=== PATIENT | female | born 1965 | race American Indian/Alaskan Native ===

== ENCOUNTER 2018-02-19 17:15 | Inpatient (IN) | payer MEDICARE ==
[2018-02-19] MEDS ORDERED: NACL 0.9% 1000 ML IV ONE (18:22)
--- NOTE | 2018-02-19 18:30 | Emergency Department Report ---
ED General Adult HPI - General Chief complaint: Fever Stated complaint: AMS Time Seen by Provider: 02/19/18 18:17 Source: EMS Mode of arrival: Stretcher Limitations: Physical Limitation, Other - History of Present Illness Initial comments: Patient is a 52-year-old female who is presenting from a shelter with fever. Patient has a history of subdural hematoma that has left her in a shelter. Patient at baseline is aphasic. Patient is noted to have fever and tachycardia today. There is no additional information is being given by the shelter. Unaware if the patient has had nausea vomiting diarrhea, cold or congestion. Patient does have a PICC line in place but is unclear what the patient is receiving through his PICC line. Patient also has a colostomy and a nonfunctioning PEG tube. - Related Data Allergies Allergy/AdvReac Type Severity Reaction Status Date / Time No Known Allergies Allergy Unverified 02/19/18 18:32 ED Review of Systems ROS: Stated complaint: AMS Other details as noted in HPI Comment: Unobtainable due to pts medical conditions ED Past Medical Hx - Past Medical History Previous Medical History?: Yes Hx Hypertension: Yes Hx CVA: Yes (Traumatic subdural hematoma) Additional medical history: A-fib, acute resp failure, - Surgical History Past Surgical History?: Yes Additional Surgical History: G-tube placement, colostomy - Social History Smoking Status: Unknown if ever smoked Substance Use Type: None ED Physical Exam - General Limitations: Physical Limitation, Other General appearance: alert, lethargic, other (patient is diaphoretic) - Head Head exam: Present: atraumatic, normocephalic - Eye Eye exam: Present: normal appearance, PERRL, EOMI - ENT ENT exam: Present: mucous membranes moist - Neck Neck exam: Present: normal inspection - Respiratory Respiratory exam: Present: normal lung sounds bilaterally, rhonchi (scattered). Absent: respiratory distress, wheezes, rales, stridor - Cardiovascular Cardiovascular Exam: Present: normal rhythm, tachycardia. Absent: systolic murmur, diastolic murmur, rubs, gallop - GI/Abdominal GI/Abdominal exam: Present: soft, normal bowel sounds. Absent: distended, tenderness, guarding, rebound, rigid - Extremities Exam Extremities exam: Present: normal inspection - Back Exam Back exam: Present: normal inspection - Neurological Exam Neurological exam: Present: alert, altered - Psychiatric Psychiatric exam: Present: normal affect, normal mood - Skin Skin exam: Present: warm, dry, intact, normal color. Absent: rash ED Course Vital Signs 02/19/18 02/19/18 18:05 18:49 Temperature 100.3 F H Pulse Rate 145 H 144 H Respiratory 17 Rate Blood Pressure 127/95 O2 Sat by Pulse 97 Oximetry ED Medical Decision Making - Lab Data Result diagrams: 02/19/18 18:14 02/19/18 18:14 Lab Results 02/19/18 02/19/18 02/19/18 Range/Units 18:14 18:14 18:14 WBC 15.4 H (4.5-11.0) K/mm3 RBC 5.27 H (3.65-5.03) M/mm3 Hgb 9.7 L (10.1-14.3) gm/dl Hct 31.4 (30.3-42.9) % MCV 60 L (79-97) fl MCH 19 L (28-32) pg MCHC 31 (30-34) % RDW 25.3 H (13.2-15.2) % Plt Count 357 (140-440) K/mm3 Sodium 159 H (137-145) mmol/L Potassium 4.5 (3.6-5.0) mmol/L Chloride 122.7 H (98-107) mmol/L Carbon Dioxide 23 (22-30) mmol/L Anion Gap 18 mmol/L BUN 29 H (7-17) mg/dL Creatinine 0.7 (0.7-1.2) mg/dL Estimated GFR > 60 ml/min BUN/Creatinine Ratio 41 % Glucose 108 H (65-100) mg/dL Lactic Acid 1.60 (0.7-2.0) mmol/L Calcium 9.4 (8.4-10.2) mg/dL Total Bilirubin 0.80 (0.1-1.2) mg/dL AST 46 H (5-40) units/L ALT 108 H (7-56) units/L Alkaline Phosphatase 114 (35-129) units/L Total Protein 7.8 (6.3-8.2) g/dL Albumin 3.5 L (3.9-5) g/dL Albumin/Globulin Ratio 0.8 % - EKG Data -: EKG Interpreted by Me - EKG Data 02/19/18 19:50 EKG shows sinus tachycardia rate of 139 axis is rightward L at intervals are normal patient with poor R-wave progression and Q waves in the lateral leads and no obvious ST elevation or depressions, interpretation his 0 - Radiology Data [facility] [address] [place] [address] XRay Report Signed Patient: DORY MCKNIGHT MR#: [id number] : 1965 Acct:[id number] Age/Sex: 52 / F ADM Date: 02/19/18 Loc: ED Attending Dr: Ordering Physician: JOSÉ MIGUEL JONES MD Date of Service: 02/19/18 Procedure(s): XR chest 1V ap Accession Number(s): [id number] cc: JOSÉ MIGUEL JONES MD Fluoro Time In Minutes: FINAL REPORT EXAM: XR CHEST 1V AP HISTORY: fever COMPARISON: None available. FINDINGS: Frontal view(s) of the chest obtained. Mild cardiac enlargement. Calcified granuloma right lung base. I PICC line is in place with distal tip projecting over the distal SVC. Hazy opacity left lung base which could reflect atelectasis. Small focus of pneumonia not excluded. No pneumothorax. Calcified right hilar and subcarinal lymph nodes. IMPRESSION: Hazy opacity left lung base concerning for atelectasis versus pneumonia. Remote granulomatous disease. Transcribed By: LMA Dictated By: ERICH RAMOS MD Electronically Authenticated By: ERICH RAMOS MD Signed Date/Time: 02/19/18 193 - Medical Decision Making Patient is a 52-year-old Female who is coming from the shelter with pneumonia. Patient was started on cefepime and vancomycin and the patient be admitted to the hospitalist service. Critical Care Time: Yes (30) Critical care attestation.: If time is entered above; I have spent that time in minutes in the direct care of this critically ill patient, excluding procedure time. ED Disposition Clinical Impression: Hypernatremia Pneumonia Qualifiers: Pneumonia type: due to unspecified organism Laterality: left Lung location: low er lobe of lung Qualified Code(s): J18.1 - Lobar pneumonia, unspecified organism Sepsis Qualifiers: Sepsis type: sepsis due to unspecified organism Qualified Code(s): A41.9 - Sepsis, unspecified organism Disposition: OP ADMIT IP TO THIS HOSP Is pt being admited?: Yes Does the pt Need Aspirin: No Condition: Stable Instructions: Bacterial Pneumonia (ED) Referrals: PRIMARY CARE, [Primary Care Provider] - 3-5 Days Time of Disposition: 19:52
[2018-02-19] MEDS: MAXIPIME/NS 2 GM/100 ML 2 GM/100 ML BAG IV SCH (18:48)
[2018-02-19 18:49] LABS: Hematocrit 31.4 % (30.3-42.9); Hemoglobin 9.7 gm/dl (10.1-14.3); Mean Corpuscular HGB Conc 31 % (30-34); Platelet Count 357 K/mm3 (140-440); Red Blood Count 5.27 M/mm3 (3.65-5.03)
[2018-02-19 19:06] LABS: Mean Corpuscular Volume 60 fl (79-97); Red Cell Distribution Width 25.3 % (13.2-15.2)
[2018-02-19 19:16] LABS: Alanine Aminotransferase 108 units/L (7-56); Albumin 3.5 g/dL (3.9-5); BUN/Creatinine Ratio 41; Blood Urea Nitrogen 29 mg/dL (7-17); Calcium 9.4 mg/dL (8.4-10.2); Hemolysis Index 6
--- NOTE | 2018-02-19 19:35 | XRay Report ---
FINAL REPORT EXAM: XR CHEST 1V AP HISTORY: fever COMPARISON: None available. FINDINGS: Frontal view(s) of the chest obtained. Mild cardiac enlargement. Calcified granuloma right lung base. I PICC line is in place with distal tip projecting over the distal SVC. Hazy opacity left lung base which could reflect atelectasis. Small focus of pneumonia not excluded. No pneumothorax. Calcified ri ght hilar and subcarinal lymph nodes. IMPRESSION: Hazy opacity left lung base concerning for atelectasis versus pneumonia. Remote granulomatous disease .
[2018-02-19 21:16] LABS: Band Neutrophils # (Manual) 0.3 K/mm3; Basophils % (Manual) 0 % (0.0-1.8); Total Cells Counted 100
[2018-02-19 21:17] LABS: Anisocytosis 2+; Hypersegmented Neutrophils Few; Hypochromasia 2+; Large Platelets Few; Platelet Estimate Consistent w Auto
[2018-02-19] MEDS ORDERED: ZOFRAN IV PRN (21:47)
[2018-02-19] MEDS ORDERED: CARDIZEM IV ONE (21:48)
[2018-02-19] MEDS ORDERED: HEPARIN ONE (22:51)
[2018-02-19] MEDS ORDERED: CARDIZEM ONE (22:51)
[2018-02-19 22:54] LABS: Bacteria,Urine 3+ /HPF (Negative); Bilirubin,Urine NEG (Negative); Blood,Urine LG (Negative); Color,Urine Red (Yellow)
[2018-02-19] MEDS ORDERED: D5W 1,000 ML IV SCH (23:00)
[2018-02-19 23:13] LABS: RBC,Urine > 182.0 /HPF (0.0-6.0); WBC,Urine > 182.0 /HPF (0.0-6.0)
[2018-02-19] MEDS: ZITHROMAX 500 MG in NACL 0.9% 250ML 250 ML IV SCH (23:15)
[2018-02-19] MEDS: HEPARIN SUB-Q SCH (23:15)
[2018-02-19 23:43] LABS: BUN/Creatinine Ratio 43; Blood Urea Nitrogen 26 mg/dL (7-17); Calcium 7.9 mg/dL (8.4-10.2); Hemolysis Index 2
[2018-02-20] MEDS: MAXIPIME/NS 2 GM/100 ML 2 GM/100 ML BAG IV SCH ×3 (05:04→22:55)
--- NOTE | 2018-02-20 07:39 | History and Physical Report ---
CHIEF COMPLAINT: Change in mental status. Other complaint includes fever. HISTORY OF PRESENT ILLNESS: The patient is a 52-year-old female brought from long term because of fever and change in mental status. The patient has history of subdural hematoma that left her in the long term and has a baseline aphasic status. The patient was noted by the long term to have fever with tachycardia and there was no history of nausea or vomiting, no history of cough, chest pain, or shortness of breath. The patient was brought to the Emergency Room for evaluation. PAST MEDICAL HISTORY: Pertinent for hypertension, cerebrovascular accident, which is due to traumatic subdural hematoma. Also, the patient has past history of atrial fibrillation and respiratory failure. PAST SURGICAL HISTORY: Pertinent for G-tube placement and colostomy. FAMILY HISTORY: Noncontributory. SOCIAL HISTORY: The patient stays at the long term, does not smoke, does not drink alcohol and does not use illicit drugs. MEDICATIONS: The patient's home medications are not known. ALLERGIES: There are no known drug allergies. REVIEW OF SYSTEMS: CONSTITUTIONAL: There is fever, but no chills, no diaphoresis. HEENT: There is no headache or sore throat. CARDIOVASCULAR SYSTEM: There is no chest pain or orthopnea, but there is a rapid heartbeat. RESPIRATORY SYSTEM: There is no shortness of breath or cough. GASTROINTESTINAL SYSTEM: There is no nausea, no vomiting, no abdominal pain, diarrhea or constipation. NEUROLOGICAL SYSTEM: There is no numbness, no dizziness,. Altered mental status present. MUSCULOSKELETAL SYSTEM: There is no joint pain or swelling. DERMATOLOGICAL SYSTEM: There is no skin rash or itching. GENITOURINARY SYSTEM: There is no dysuria, hematuria, or flank pain. Rest of system review is normal. PHYSICAL EXAMINATION: GENERAL: At the time of exam, the patient was found to be alert, disoriented x 3 and noncommunicative due to chronic aphasia and not in acute distress. VITAL SIGNS: Shows temperature of 100.3 degrees Fahrenheit, pulse of 145, respirations 17, blood pressure 127/95, and O2 sat of 97% on room air. HEENT: Shows pupils to be equal, round, reactive to light and accommodating. Oral mucosa looks dry. NECK: Supple with no JVD or carotid bruit. CARDIOVASCULAR SYSTEM: Show first and second heart sounds, which were heard with irregularly irregular rhythm. RESPIRATORY SYSTEM: Show good air entry on both sides of the lungs with no abnormal breath sounds. GASTROINTESTINAL SYSTEM: Show abdomen to be full, soft, nontender with no organomegaly or rigidity. NEUROLOGICAL: Shows no new focal deficits. The patient has altered mental status. MUSCULOSKELETAL SYSTEM: Show no joint swelling or tenderness. DERMATOLOGICAL SYSTEM: Show no skin rash. GENITOURINARY SYSTEM: Showing no costovertebral angle tenderness. PERTINENT LABORATORY DATA AND IMAGING STUDIES: The patient had a chest x-ray done and the chest x-ray shows hazy opacity in the left lung base concerning for atelectasis versus pneumonia. There is also finding of remote granulomatous disease. Lab tests: The patient has CBC done with elevated white count of 15,400, low hemoglobin of 9.7, low hematocrit of 31.4, and low MCV of 60. The patient has CBC differential shows slightly elevated, segmented neutrophil of 75%. The patient's chemistry show a high sodium level of 159 with a normal potassium level, high chloride level of 122.7 and normal CO2 with elevated BUN of 29, normal creatinine level with AST of 46 and ALT of 108. The patient's urinalysis show high pH of 8.0 with normal specific gravity and negative urine nitrite with large urine leukocyte esterase and high urine WBC of greater than 182 and 3 plus bacteria. DIAGNOSES: 1. Altered mental status. 2. Left lung pneumonia. 3. Chronic atrial fibrillation with rapid ventricular rate. 4. Urinary tract infection. PLAN: 1. The patient will be admitted to telemetry. 2. The patient will continue IV cefepime 2 grams q. 8 hours that was started in the Emergency Room. 3. The patient will be on IV Zithromax 500 mg daily. 4. The patient will be on IV Zofran 4 mg every 8 hours for nausea and vomiting. 5. The patient will be on IV D5W running at 100 mL an hour. 5. The patient will have basic metabolic panel checked after admission to monitor the sodium level. 6. The patient will be on Tylenol 650 mg by mouth every 4 hours for fever and headache. 7. The patient will be on home medication when they are known and reconciled. JOB# [id number] OCN/NTS
[2018-02-20] MEDS: HEPARIN SUB-Q SCH ×2 (12:05→22:55)
--- NOTE | 2018-02-20 15:30 | Progress Note ---
Assessment and Plan - Patient Problems (1) Acute encephalopathy Current Visit: Yes Status: Acute Plan to address problem: Secondary to sepsis and UTI (2) Sepsis Current Visit: Yes Status: Acute Qualifiers: Sepsis type: sepsis due to unspecified organism Qualified Code(s): A41.9 - Sepsis, unspecified organism Plan to address problem: Sepsis secondary to urinary tract infection and possible pneumonia Continue IV antibiotics in the form of cefepime (3) UTI (urinary tract infection) Current Visit: Yes Status: Acute Qualifiers: Urinary tract infection type: acute cystitis Plan to address problem: Await cultures (4) Pneumonia Current Visit: Yes Status: Acute Qualifiers: Pneumonia type: aspiration pneumonia Laterality: left Lung location: lower lobe of lung Qualified Code(s): J18.1 - Lobar pneumonia, unspecified organism Plan to address problem: Possible aspiration Left lower lobe haziness Continue antibiotics (5) Hypernatremia Current Visit: Yes Status: Acute Plan to address problem: IV D5W for now (6) Cerebrovascular accident Current Visit: Yes Status: Chronic Qualifiers: CVA mechanism: unspecified Qualified Code(s): I63.9 - Cerebral infarction, unspecified Plan to address problem: Supportive care (7) PEG tube malfunction Current Visit: Yes Status: Chronic Plan to address problem: PEG tube site healing Will get GI consult regarding different options available (8) Atrial fibrillation with RVR Current Visit: Yes Status: Acute Plan to address problem: Cardizem 5 mg IV every 6 Will get cardiology consult (9) DVT prophylaxis Current Visit: Yes Status: Acute Plan to address problem: Lovenox 40 mg subcutaneous daily and GI prophylaxis (10) Full code status Current Visit: Yes Status: Acute Plan to address problem: Discussed DO NOT RESUSCITATE but patient's wants everything to be done (11) Discharge planning issues Current Visit: Yes Status: Acute Plan to address problem: Patient is from [facility] , once stable patient never discharged back to residential Subjective Date of service: 02/20/18 Principal diagnosis: Sepsis/UTI/encephalopathy Interval history: 52-year-old -[place] female with history of subdural hematoma and cerebrovascular accident was baseline is aphasic and dysphagia admitted for sepsis and UTI. Patient has a PEG tube which was malfunctioning and was removed. The PEG tube hole is healing and still draining some gastric fluid. Patient is apparently on TPN as per the . CODE STATUS was discussed. wants her to be full code. Patient is being treated for sepsis urinary tract infection and hypernatremia Objective - Exam Narrative Exam: Patient is aphasic and decreased responsive - Constitutional Vitals: Vital Signs - 12hr 02/20/18 02/20/18 02/20/18 03:30 04:42 09:02 Temperature 98.2 F 98.3 F Pulse Rate 103 H 112 H 110 H Respiratory 18 18 Rate Blood Pressure 149/91 132/109 110/73 O2 Sat by Pulse 100 100 Oximetry General appearance: Present: no acute distress, well-nourished - EENT Eyes: PERRL, EOM intact ENT: hearing intact, clear oral mucosa Ears: bilateral: normal - Neck Neck: supple, normal ROM - Respiratory Respiratory effort: normal Respiratory: bilateral: CTA - Breasts Breasts: normal - Cardiovascular Heart rate: 110 Rhythm: irregularly irregular Heart Sounds: Present: S1 & S2. Absent: gallop, rub Extremities: no ischemia, pulses intact, No edema, normal color, Full ROM - Gastrointestinal General gastrointestinal: Present: soft, non-tender, non-distended, normal bowel sounds, other (PEG site healing and a drain bag is present with gastric fluid) - Genitourinary Female genitourinary: normal - Integumentary Integumentary: clear, warm, dry, normal turgor (no decubitus ulcers) - Musculoskeletal Musculoskeletal: generalized weakness - Neurologic Neurologic: moves all extremities, other (patient is aphasic and dysphagic.) - Psychiatric Psychiatric: memory intact, appropriate mood/affect, intact judgment & insight - Labs CBC & Chem 7: 02/19/18 18:14 02/19/18 23:08 Labs: Abnormal lab results 02/19/18 02/19/18 02/19/18 Range/Units 18:14 18:14 23:08 WBC 15.4 H (4.5-11.0) K/mm3 RBC 5.27 H (3.65-5.03) M/mm3 Hgb 9.7 L (10.1-14.3) gm/dl MCV 60 L (79-97) fl MCH 19 L (28-32) pg RDW 25.3 H (13.2-15.2) % Seg Neuts % (Manual) 75.0 H (40.0-70.0) % Lymphocytes % (Manual) 11.0 L (13.4-35.0) % Monocytes % (Manual) 8.0 H (0.0-7.3) % Nucleated RBC % 6.0 H (0.0-0.9) % Seg Neutrophils # Man 11.6 H (1.8-7.7) K/mm3 Monocytes # (Manual) 1.2 H (0.0-0.8) K/mm3 Sodium 159 H 159 H (137-145) mmol/L Chloride 122.7 H 129.2 H (98-107) mmol/L Carbon Dioxide 19 L (22-30) mmol/L BUN 29 H 26 H (7-17) mg/dL Creatinine 0.6 L (0.7-1.2) mg/dL Glucose 108 H 119 H (65-100) mg/dL Calcium 7.9 L D (8.4-10.2) mg/dL AST 46 H (5-40) units/L ALT 108 H (7-56) units/L Albumin 3.5 L (3.9-5) g/dL Urine pH (5.0-7.0) Urine WBC (Auto) (0.0-6.0) /HPF 02/19/18 Range/Units Unknown WBC (4.5-11.0) K/mm3 RBC (3.65-5.03) M/mm3 Hgb (10.1-14.3) gm/dl MCV (79-97) fl MCH (28-32) pg RDW (13.2-15.2) % Seg Neuts % (Manual) (40.0-70.0) % Lymphocytes % (Manual) (13.4-35.0) % Monocytes % (Manual) (0.0-7.3) % Nucleated RBC % (0.0-0.9) % Seg Neutrophils # Man (1.8-7.7) K/mm3 Monocytes # (Manual) (0.0-0.8) K/mm3 Sodium (137-145) mmol/L Chloride (98-107) mmol/L Carbon Dioxide (22-30) mmol/L BUN (7-17) mg/dL Creatinine (0.7-1.2) mg/dL Glucose (65-100) mg/dL Calcium (8.4-10.2) mg/dL AST (5-40) units/L ALT (7-56) units/L Albumin (3.9-5) g/dL Urine pH 8.0 H (5.0-7.0) Urine WBC (Auto) > 182.0 H (0.0-6.0) /HPF Chest x-ray IMPRESSION: Hazy opacity left lung base concerning for atelectasis versus pneumonia. Remote granulomatous disease.
[2018-02-20] MEDS: D5W 1,000 ML IV SCH (17:48)
[2018-02-20] MEDS: CARDIZEM IV SCH ×2 (17:49→22:55)
[2018-02-20] MEDS: ZITHROMAX 500 MG in NACL 0.9% 250ML 250 ML IV SCH (17:50)
[2018-02-20] MEDS: LOVENOX SUB-Q SCH (22:55)
[2018-02-21] MEDS: CARDIZEM IV SCH (04:50)
[2018-02-21] MEDS: MAXIPIME/NS 2 GM/100 ML 2 GM/100 ML BAG IV SCH ×3 (04:58→22:48)
[2018-02-21] MEDS: D5W 1,000 ML IV SCH (06:03)
[2018-02-21 09:00] LABS: Hematocrit 27.1 % (30.3-42.9); Hemoglobin 8.1 gm/dl (10.1-14.3); Mean Corpuscular HGB Conc 30 % (30-34); Platelet Count 270 K/mm3 (140-440); Red Blood Count 4.45 M/mm3 (3.65-5.03)
[2018-02-21 09:05] LABS: Alanine Aminotransferase 83 units/L (7-56); BUN/Creatinine Ratio 40; Blood Urea Nitrogen 24 mg/dL (7-17); Calcium 8.5 mg/dL (8.4-10.2); Hemolysis Index 1
[2018-02-21 09:14] LABS: Mean Corpuscular Volume 61 fl (79-97); Red Cell Distribution Width 25.4 % (13.2-15.2)
[2018-02-21] MEDS: ZITHROMAX 500 MG in NACL 0.9% 250ML 250 ML IV SCH (10:00)
[2018-02-21 10:06] LABS: Anisocytosis 2+; Basophils % (Manual) 0 % (0.0-1.8); Total Cells Counted 100
[2018-02-21 10:07] LABS: Hypochromasia 2+; Platelet Estimate Consistent w Auto; Poikilocytosis 1+; Target Cells 1+
--- NOTE | 2018-02-21 11:17 | Gastroenterology Consultation ---
History of Present Illness - Reason for Consult Consult date: 02/21/18 PEG tube malfunctioning Requesting physician: TOMEKA BAH - History of Present Illness This is a 52 yo female from custodial, chronic vegetative state, h/o CVA, subdural hematoma and baseline aphasia admitted for sepsis with fever and tachycardia. GI consulted for evaluation of PEG tube. Per family, patient had old PEG tube, which the site was infected and the tube was removed, leaving an abdominal wall opening, which was not healing well. She had a new PEG tube placed at a different site about 1-2 months ago at [facility]. She has been on TPN while allowing for the old PEG tube site to heal. Per family, the opening has been closing up but continued to drain fluid. Since admission, patient has been on broad spectrum antibiotics for sepsis due to UTI and pneumonia. Past History Past Medical History: stroke Past Surgical History: Other (PEG tube) Social history: other (from custodial) Medications and Allergies Allergies Allergy/AdvReac Type Severity Reaction Status Date / Time No Known Allergies Allergy Unverified 02/19/18 18:32 Home Medications Medication Instructions Recorded Confirmed Last Taken Type Unobtainable 02/20/18 02/20/18 Unknown History Active Meds: Active Medications Acetaminophen (Tylenol) 650 mg PO Q4H PRN PRN Reason: Fever >101 Diltiazem HCl (Cardizem) 10 mg IV Q6H [facility] Last Admin: 02/21/18 04:50 Dose: 10 mg Documented by: Enoxaparin Sodium (Lovenox) 40 mg SUB-Q QDAY@2200 [facility] Last Admin: 02/20/18 22:55 Dose: 40 mg Documented by: Cefepime HCl (Maxipime/Ns 2 Gm/100 Ml) 2 gm in 100 mls @ 200 mls/hr IV Q8H [facility]; Protocol Last Admin: 02/21/18 04:58 Dose: 200 mls/hr Documented by: Azithromycin 500 mg/ Sodium (Chloride) 250 mls @ 250 mls/hr IV Q24HR [facility] Last Admin: 02/20/18 17:50 Dose: Not Given Documented by: Dextrose (D5w) 1,000 mls @ 100 mls/hr IV DIRECT [facility] Last Admin: 02/21/18 06:03 Dose: 100 mls/hr Documented by: Ondansetron HCl (Zofran) 4 mg IV Q8H PRN PRN Reason: Nausea And Vomiting Review of Systems - Review of Systems ROS unobtainable: due to mental status Exam - Constitutional Vital Signs: Temp Pulse Resp BP Pulse Ox 98.0 F 106 H 20 130/77 100 02/21/18 07:59 02/21/18 07:59 02/21/18 07:59 02/21/18 07:59 02/21/18 07:59 General appearance: no acute distress, obese - Respiratory Respiratory effort: normal - Cardiovascular Rhythm: other (tachycardic) Heart Sounds: Present: S1 & S2 - Gastrointestinal General gastrointestinal: Present: soft, non-distended, other (A PEG tube in the mid abdomen with a ostomy bag over an opening with drainage adjacent to the PEG tube) - Neurologic Neurological: other (aphasic) - Labs CBC & Chem 7: 02/21/18 08:12 02/21/18 08:07 Lab Results: Laboratory Results - last 24 hr 02/21/18 02/21/18 02/21/18 00:00 08:07 08:07 WBC RBC Hgb Hct MCV MCH MCHC RDW Plt Count Add Manual Diff Total Counted Seg Neuts % (Manual) Band Neutrophils % Lymphocytes % (Manual) Reactive Lymphs % (Man) Monocytes % (Manual) Eosinophils % (Manual) Basophils % (Manual) Metamyelocytes % Myelocytes % Promyelocytes % Blast Cells % Nucleated RBC % Seg Neutrophils # Man Band Neutrophils # Lymphocytes # (Manual) Abs React Lymphs (Man) Monocytes # (Manual) Eosinophils # (Manual) Basophils # (Manual) Metamyelocytes # Myelocytes # Promyelocytes # Blast Cells # WBC Morphology Hypersegmented Neuts Hyposegmented Neuts Hypogranular Neuts Smudge Cells Toxic Granulation Toxic Vacuolation Dohle Bodies Pelger-Huet Anomaly Jamari Rods Platelet Estimate Clumped Platelets Plt Clumps, EDTA Large Platelets Giant Platelets Platelet Satelliting Plt Morphology Comment RBC Morphology Dimorphic RBCs Polychromasia Hypochromasia Poikilocytosis Anisocytosis Microcytosis Macrocytosis Spherocytes Pappenheimer Bodies Sickle Cells Target Cells Tear Drop Cells Ovalocytes Helmet Cells [place] Bodies Hegins Rings Samantha Cells Bite Cells Crenated Cell Elliptocytes Acanthocytes (Spur) Rouleaux Hemoglobin C Crystals Schistocytes Malaria parasites Joel Bodies Hem Pathologist Commnt Sodium 159 H Potassium 3.1 L Chloride 128.1 H Carbon Dioxide 18 L Anion Gap 16 BUN 24 H Creatinine 0.6 L Estimated GFR > 60 BUN/Creatinine Ratio 40 Glucose 116 H POC Glucose 129 H Calcium 8.5 Phosphorus 2.50 Magnesium 2.30 Total Bilirubin 0.50 AST 33 ALT 83 H Alkaline Phosphatase 92 Total Protein 7.0 Albumin 3.0 L Albumin/Globulin Ratio 0.8 02/21/18 08:12 WBC 11.9 H RBC 4.45 Hgb 8.1 L Hct 27.1 L MCV 61 L MCH 18 L MCHC 30 RDW 25.4 H Plt Count 270 Add Manual Diff Complete Total Counted 100 Seg Neuts % (Manual) 81.0 H Band Neutrophils % 0 Lymphocytes % (Manual) 8.0 L Reactive Lymphs % (Man) 0 Monocytes % (Manual) 2.0 Eosinophils % (Manual) 9.0 H Basophils % (Manual) 0 Metamyelocytes % 0 Myelocytes % 0 Promyelocytes % 0 Blast Cells % 0 Nucleated RBC % Not Reportable Seg Neutrophils # Man 9.6 H Band Neutrophils # 0.0 Lymphocytes # (Manual) 1.0 L Abs React Lymphs (Man) 0.0 Monocytes # (Manual) 0.2 Eosinophils # (Manual) 1.1 H Basophils # (Manual) 0.0 Metamyelocytes # 0.0 Myelocytes # 0.0 Promyelocytes # 0.0 Blast Cells # 0.0 WBC Morphology Not Reportable Hypersegmented Neuts Not Reportable Hyposegmented Neuts Not Reportable Hypogranular Neuts Not Reportable Smudge Cells Not Reportable Toxic Granulation Not Reportable Toxic Vacuolation Not Reportable Dohle Bodies Not Reportable Pelger-Huet Anomaly Not Reportable Jamari Rods Not Reportable Platelet Estimate Consistent w auto Clumped Platelets Not Reportable Plt Clumps, EDTA Not Reportable Large Platelets Not Reportable Giant Platelets Not Reportable Platelet Satelliting Not Reportable Plt Morphology Comment Not Reportable RBC Morphology Not Reportable Dimorphic RBCs Not Reportable Polychromasia Not Reportable Hypochromasia 2+ Poikilocytosis 1+ Anisocytosis 2+ Microcytosis 2+ Macrocytosis Not Reportable Spherocytes Not Reportable Pappenheimer Bodies Not Reportable Sickle Cells Not Reportable Target Cells 1+ Tear Drop Cells Not Reportable Ovalocytes Not Reportable Helmet Cells Not Reportable [place] Bodies Not Reportable Hegins Rings Not Reportable Samantha Cells Not Reportable Bite Cells Not Reportable Crenated Cell Not Reportable Elliptocytes Not Reportable Acanthocytes (Spur) Not Reportable Rouleaux Not Reportable Hemoglobin C Crystals Not Reportable Schistocytes Not Reportable Malaria parasites Not Reportable Joel Bodies Not Reportable Hem Pathologist Commnt No Sodium Potassium Chloride Carbon Dioxide Anion Gap BUN Creatinine Estimated GFR BUN/Creatinine Ratio Glucose POC Glucose Calcium Phosphorus Magnesium Total Bilirubin AST ALT Alkaline Phosphatase Total Protein Albumin Albumin/Globulin Ratio Assessment and Plan This is a 52 yo female from custodial, chronic vegetative state, h/o CVA, subdural hematoma and baseline aphasia admitted for sepsis with fever and tachycardia. GI consulted for evaluation of PEG tube. - Patient Problems (1) PEG tube malfunction Current Visit: Yes Status: Chronic Plan to address problem: Patient with old PEG site with the enlargening opening and infection s/p removal and new PEG tube placement adjacent to the old PEG site at [facility], [facility]. Currently on TPN. - recommend continuing with TPN - recommend CT abdomen/pelvis to evaluate the old PEG tube site. possible persistent infection concerning. currently on broad spec antibiotic coverage for UTI and pneumonia. - will follow.
--- NOTE | 2018-02-21 13:06 | Consultation ---
Addendum entered and electronically signed by JAY POZO MD 02/21/18 13:43: 52-year-old woman who is in a [facility], with a history of subdural hemorrhag e and chronic aphasia. She has an indwelling gastrostomy feeding tube. She was referred to the emergency room from the [facility] for fever, and on presentation her temperature was 100.3 Fahrenheit. Further evaluation in the emergency room showed a leukocytosis with WBC of 15,000, and dehydration with a sodium of 159. In addition, there was evidence of UTI with a urinary white count of greater than 180. Cardiology consultation was for "atrial fibrillation". On careful review of the ECGs and telemetry tracings, there is no atrial fibrillation, instead the patient has a sinus tachycardia consistent with the infection and dehydration. There is also a moderate hypertension. On review of the records, she does not appear to be on antihypertensive therapy. Recommendations: I will defer to internal medicine for management of the urinary tract infection, febrile illness and dehydration. I will discontinue Cardizem therapy, physiologic sinus tachycardia does not require specific medical treatment but will resolve with optimal treatment of dehydration and UTI. For the hypertension, we will start the patient on losartan and metoprolol. These will be started once the gastrostomy tube is determined to be functioning properly. Original Note: History of Present Illness Consult date: 02/21/18 Consult reason: atrial fibrillation History of present illness: Patient is a 52 year old woman who resides in a care home. She has a reported history of CVA, subdural hematoma with baseline aphasia. She was sent to this hospital with fever, tachycardia, admitted with sepsis thought secondary to UTI and pneumonia. In addition, initial labs revealed a sodium level of 159. A cardiac consultation was requested for an atrial fibrillation. On review of the EKG is sinus tachycardia, rate 139. There is no evidence of atrial fibrillation. There has not been any arrhythmias seen on telemetry. The patient appears in no acute distress. Past History Past Medical History: stroke Past Surgical History: Other (PEG tube) Social history: other (from [facility]) Medications and Allergies Allergies Allergy/AdvReac Type Severity Reaction Status Date / Time No Known Allergies Allergy Unverified 02/19/18 18:32 Home Medications Medication Instructions Recorded Confirmed Last Taken Type Unobtainable 02/20/18 02/20/18 Unknown History Active Meds: Active Medications Acetaminophen (Tylenol) 650 mg PO Q4H PRN PRN Reason: Fever >101 Diltiazem HCl (Cardizem) 10 mg IV Q6H [facility] Last Admin: 02/21/18 04:50 Dose: 10 mg Documented by: Enoxaparin Sodium (Lovenox) 40 mg SUB-Q QDAY@2200 [facility] Last Admin: 02/20/18 22:55 Dose: 40 mg Documented by: Cefepime HCl (Maxipime/Ns 2 Gm/100 Ml) 2 gm in 100 mls @ 200 mls/hr IV Q8H [facility]; Protocol Last Admin: 02/21/18 04:58 Dose: 200 mls/hr Documented by: Azithromycin 500 mg/ Sodium (Chloride) 250 mls @ 250 mls/hr IV Q24HR [facility] Last Admin: 02/20/18 17:50 Dose: Not Given Documented by: Dextrose (D5w) 1,000 mls @ 100 mls/hr IV DIRECT [facility] Stop: 02/21/18 21:00 Last Admin: 02/21/18 06:03 Dose: 100 mls/hr Documented by: Amino Acids/Electrolytes/Dextrose (Tpn Adult) 2,400 mls @ 100 mls/hr IV RIGOBERTO Y@2000 [facility]; Protocol Stop: 02/22/18 19:59 Ondansetron HCl (Zofran) 4 mg IV Q8H PRN PRN Reason: Nausea And Vomiting Physical Examination Vital Signs Temp Pulse Resp BP Pulse Ox 100.3 F H 145 H 17 127/95 97 02/19/18 18:05 02/19/18 18:05 02/19/18 18:05 02/19/18 18:05 02/19/18 18:05 General appearance: no acute distress Cardiac: Positive: Tachycardia Results 02/21/18 08:12 02/21/18 08:07 Cardiac Enzymes 02/21/18 Range/Units 08:07 AST 33 (5-40) units/L CBC 02/21/18 Range/Units 08:12 WBC 11.9 H (4.5-11.0) K/mm3 RBC 4.45 (3.65-5.03) M/mm3 Hgb 8.1 L (10.1-14.3) gm/dl Hct 27.1 L (30.3-42.9) % Plt Count 270 (140-440) K/mm3 Comprehensive Metabolic Panel 02/21/18 Range/Units 08:07 Sodium 159 H (137-145) mmol/L Potassium 3.1 L (3.6-5.0) mmol/L Chloride 128.1 H (98-107) mmol/L Carbon Dioxide 18 L (22-30) mmol/L BUN 24 H (7-17) mg/dL Creatinine 0.6 L (0.7-1.2) mg/dL Glucose 116 H (65-100) mg/dL Calcium 8.5 (8.4-10.2) mg/dL AST 33 (5-40) units/L ALT 83 H (7-56) units/L Alkaline Phosphatase 92 (35-129) units/L Total Protein 7.0 (6.3-8.2) g/dL Albumin 3.0 L (3.9-5) g/dL Assessment and Plan Sepsis UTI Pneumonia Hx of CVA, subdural hematoma with baseline aphasia Reflex Sinus tachycardia no evidence of atrial fibrillation.
[2018-02-21] MEDS ORDERED: LOPRESSOR PO SCH (14:00)
--- NOTE | 2018-02-21 14:22 | Cat Scan Report ---
FINAL REPORT EXAM: CT ABDOMEN PELVIS W CON HISTORY: old peg tube site infection TECHNIQUE: CT examination of the ABDOMEN after IV contrast CT examination of the PELVIS after IV contrast PRIORS: None. FINDINGS: Right hip arthroplasty. IVC filter. Metal artifact limits the examination. Patient arm in the diagnos tic [id number] degrades image quality and limits the examination. Large body habitus limits the ex amination. Increased soft tissue attenuates the CT x-ray beam and degrades image quality. Prominent calcified benign granuloma in anterior right middle lobe. Calcified granuloma inferior righ t hilum. Slight linear scar versus atelectasis left lung base. Degenerative change in the regional skeleton. No visible acute fracture. Slight cardiomegaly. Normal-appearing liver, adrenals, pancreas, and spleen. Intact normal caliber ab dominal aorta with slight calcified atherosclerotic plaque. Nonspecific slight distention of the gallbladder with 5.2 cm transverse diameter. No CT visualized ga llstones. Normal caliber common bile duct. IVC contains filter with distal legs projected within the adjacent retroperitoneal fat. Right kidney with ureteral stent in place with proximal tip in kidney and distal tip obscured by righ t hip metal artifact. It appears the distal tip is partly visualized in the distal right ureter and d oes not extend to the urinary bladder. No significant hydronephrosis. Multiple right renal staghorn calculi in the right kidney. Another is noted at the UPJ level adjacent to the stent measuring approximately 9 x 14 mm. Largest staghorn in right renal upper pole measures 20 x 27 mm. Left kidney with ureteral stent in place. Proximal tip in left kidney and distal tip in distal left u reter approximately 1 cm proximal to the left UVJ. It does not appear to extend into the urinary blad alena. There is slight left hydronephrosis. Several nonobstructing left renal calculi ranging in size from 1 mm to 7 mm. Left UVJ calculus along the left ureteral stent measuring 10 mm. Very small fat containing umbilical hernia. No inguinal hernia. No retroperitoneal adenopathy. No mes enteric mass. Gastrostomy tube distal tip in anterior mid stomach region. Additional gastrostomy tube tract noted s lightly lateral to the current which appears to contain oral contrast from adjacent ostomy bag. There is slight fat stranding adjacent to the tract which may be edema, inflammation, or infection. No flu id collection to suggest abscess. Normal-appearing duodenum. No small bowel distention in the abdomen and pelvis. No pelvic free fluid. Normal-appearing urinary bladder containing air possibly from recent catheteriz ation. Normal-appearing rectum and sigmoid colon. No gross ascites, free air, or colonic distention. Normal-appearing cecum, terminal ileum, and appendix. Multiple calcified nodules within slightly enlarged uterus may reflect multiple fibroids. No adnexal abnormality. Nonspecific tubing noted external to the patient inferior to the rectum. IMPRESSION: Current PEG tube with distal tip in anterior mid stomach. Previous PEG tube tract slightly more later al with adjacent fat stranding. This may reflect edema, inflammation, or infection. No fluid collecti on to suggest abscess. Metal artifact from right hip arthroplasty and IVC filter limit the examination, especially the pelvi s. Slight cardiomegaly Nonspecific slight distention of the gallbladder without CT evidence of stones IVC filter legs projected within adjacent retroperitoneal fat Bilateral renal nonobstructing calculi. Bilateral ureteral stents appear to terminate in the distal u reter and not extend into the bladder. Slight left hydronephrosis Multiple calcified nodules within slightly enlarged uterus may reflect multiple fibroids
--- NOTE | 2018-02-21 15:26 | Progress Note ---
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 In addition, there was evidence of UTI and possible afib with RVR. She was also found to have a malfunctioning PEG tube. pCXR Impression: Hazy opacity left lung base concerning for atelectasis verus pneumonia, remote granulomatous disease. -Sepsis secondary to urinary tract infection and possible pneumonia: Continue IV antibiotics, follow cultures -UTI (urinary tract infection): treat with abx, follow cultures -Acute encephalopathy Secondary to sepsis and UTI: treat the infection -Possible LLL NH/HAP Pneumonia: continue abx -Hypernatremia: IV D5W for now -PEG tube malfunction: GI consulted and d/w Dr. Lomax who will order CT abd/pelvis -?Atrial fibrillation with RVR: Cardiology consulted -DVT prophylaxis: Lovenox 40 mg subcutaneous daily and GI prophylaxis Full code History Interval history: Patient was seen and examined. Follow-up on current diagnosis of fevers. Overnight uneventful. Imaging, nursing note, chart, labs and old chart reviewed. Hospitalist Physical - Physical exam Narrative exam: Gen: severe ill appearing, nonverbal, chronically debilitated, HEENT: NCAT, EOMI, PERRL, OP and mm dry Neck: supple, no adenopathy, no thyromegaly, no JVD CVS/Heart: RRR, normal S1S2, pulses present bilaterally Chest/Lungs: diminished bs bilateral Symmetrical chest expansion, good air entry bilaterally GI/Abdomen: PEG with bag over it, draining brown substance, ?bile vs fecal material, +bowel sounds, no guarding or rebound /Bladder: mobley in place Extermity/Skin: leg atrophic, foot drop bilaterally MSK: no FROM x 4 Neuro: CN 2-12 grossly intact, doesn't follow commands, Psych: unresponsive - Constitutional Vitals: Temp Pulse Resp BP Pulse Ox 98.4 F 105 H 20 156/97 100 02/21/18 11:21 02/21/18 11:21 02/21/18 11:21 02/21/18 11:21 02/21/18 11:21 General appearance: Present: no acute distress Results - Labs CBC & Chem 7: 02/22/18 04:16 02/22/18 04:16 Labs: Laboratory Last Values WBC 11.9 K/mm3 (4.5-11.0) H 02/21/18 08:12 RBC 4.45 M/mm3 (3.65-5.03) 02/21/18 08:12 Hgb 8.1 gm/dl (10.1-14.3) L 02/21/18 08:12 Hct 27.1 % (30.3-42.9) L 02/21/18 08:12 MCV 61 fl (79-97) L 02/21/18 08:12 MCH 18 pg (28-32) L 02/21/18 08:12 MCHC 30 % (30-34) 02/21/18 08:12 RDW 25.4 % (13.2-15.2) H 02/21/18 08:12 Plt Count 270 K/mm3 (140-440) 02/21/18 08:12 Add Manual Diff Complete 02/21/18 08:12 Total Counted 100 02/21/18 08:12 Seg Neuts % (Manual) 81.0 % (40.0-70.0) H 02/21/18 08:12 Band Neutrophils % 0 % 02/21/18 08:12 Lymphocytes % (Manual) 8.0 % (13.4-35.0) L 02/21/18 08:12 Reactive Lymphs % (Man) 0 % 02/21/18 08:12 Monocytes % (Manual) 2.0 % (0.0-7.3) 02/21/18 08:12 Eosinophils % (Manual) 9.0 % (0.0-4.3) H 02/21/18 08:12 Basophils % (Manual) 0 % (0.0-1.8) 02/21/18 08:12 Metamyelocytes % 0 % 02/21/18 08:12 Myelocytes % 0 % 02/21/18 08:12 Promyelocytes % 0 % 02/21/18 08:12 Blast Cells % 0 % 02/21/18 08:12 Nucleated RBC % Not Reportable 02/21/18 08:12 Seg Neutrophils # Man 9.6 K/mm3 (1.8-7.7) H 02/21/18 08:12 Band Neutrophils # 0.0 K/mm3 02/21/18 08:12 Lymphocytes # (Manual) 1.0 K/mm3 (1.2-5.4) L 02/21/18 08:12 Abs React Lymphs (Man) 0.0 K/mm3 02/21/18 08:12 Monocytes # (Manual) 0.2 K/mm3 (0.0-0.8) 02/21/18 08:12 Eosinophils # (Manual) 1.1 K/mm3 (0.0-0.4) H 02/21/18 08:12 Basophils # (Manual) 0.0 K/mm3 (0.0-0.1) 02/21/18 08:12 Metamyelocytes # 0.0 K/mm3 02/21/18 08:12 Myelocytes # 0.0 K/mm3 02/21/18 08:12 Promyelocytes # 0.0 K/mm3 02/21/18 08:12 Blast Cells # 0.0 K/mm3 02/21/18 08:12 WBC Morphology Not Reportable 02/21/18 08:12 Hypersegmented Neuts Not Reportable 02/21/18 08:12 Hyposegmented Neuts Not Reportable 02/21/18 08:12 Hypogranular Neuts Not Reportable 02/21/18 08:12 Smudge Cells Not Reportable 02/21/18 08:12 Toxic Granulation Not Reportable 02/21/18 08:12 Toxic Vacuolation Not Reportable 02/21/18 08:12 Dohle Bodies Not Reportable 02/21/18 08:12 Pelger-Huet Anomaly Not Reportable 02/21/18 08:12 Jamari Rods Not Reportable 02/21/18 08:12 Platelet Estimate Consistent w auto 02/21/18 08:12 Clumped Platelets Not Reportable 02/21/18 08:12 Plt Clumps, EDTA Not Reportable 02/21/18 08:12 Large Platelets Not Reportable 02/21/18 08:12 Giant Platelets Not Reportable 02/21/18 08:12 Platelet Satelliting Not Reportable 02/21/18 08:12 Plt Morphology Comment Not Reportable 02/21/18 08:12 RBC Morphology Not Reportable 02/21/18 08:12 Dimorphic RBCs Not Reportable 02/21/18 08:12 Polychromasia Not Reportable 02/21/18 08:12 Hypochromasia 2+ 02/21/18 08:12 Poikilocytosis 1+ 02/21/18 08:12 Anisocytosis 2+ 02/21/18 08:12 Microcytosis 2+ 02/21/18 08:12 Macrocytosis Not Reportable 02/21/18 08:12 Spherocytes Not Reportable 02/21/18 08:12 Pappenheimer Bodies Not Reportable 02/21/18 08:12 Sickle Cells Not Reportable 02/21/18 08:12 Target Cells 1+ 02/21/18 08:12 Tear Drop Cells Not Reportable 02/21/18 08:12 Ovalocytes Not Reportable 02/21/18 08:12 Helmet Cells Not Reportable 02/21/18 08:12 Dumont-Eunice Bodies Not Reportable 02/21/18 08:12 Anderson Rings Not Reportable 02/21/18 08:12 Menan Cells Not Reportable 02/21/18 08:12 Bite Cells Not Reportable 02/21/18 08:12 Crenated Cell Not Reportable 02/21/18 08:12 Elliptocytes Not Reportable 02/21/18 08:12 Acanthocytes (Spur) Not Reportable 02/21/18 08:12 Rouleaux Not Reportable 02/21/18 08:12 Hemoglobin C Crystals Not Reportable 02/21/18 08:12 Schistocytes Not Reportable 02/21/18 08:12 Malaria parasites Not Reportable 02/21/18 08:12 Joel Bodies Not Reportable 02/21/18 08:12 Hem Pathologist Commnt No 02/21/18 08:12 Sodium 159 mmol/L (137-145) H 02/21/18 08:07 Potassium 3.1 mmol/L (3.6-5.0) L 02/21/18 08:07 Chloride 128.1 mmol/L (98-107) H 02/21/18 08:07 Carbon Dioxide 18 mmol/L (22-30) L 02/21/18 08:07 Anion Gap 16 mmol/L 02/21/18 08:07 BUN 24 mg/dL (7-17) H 02/21/18 08:07 Creatinine 0.6 mg/dL (0.7-1.2) L 02/21/18 08:07 Estimated GFR > 60 ml/min 02/21/18 08:07 BUN/Creatinine Ratio 40 % 02/21/18 08:07 Glucose 116 mg/dL (65-100) H 02/21/18 08:07 POC Glucose 129 (70-105) H 02/21/18 00:00 Lactic Acid 1.40 mmol/L (0.7-2.0) 02/19/18 21:10 Calcium 8.5 mg/dL (8.4-10.2) 02/21/18 08:07 Phosphorus 2.50 mg/dL (2.5-4.5) 02/21/18 08:07 Magnesium 2.30 mg/dL (1.7-2.3) 02/21/18 08:07 Total Bilirubin 0.50 mg/dL (0.1-1.2) 02/21/18 08:07 AST 33 units/L (5-40) 02/21/18 08:07 ALT 83 units/L (7-56) H 02/21/18 08:07 Alkaline Phosphatase 92 units/L (35-129) 02/21/18 08:07 Total Protein 7.0 g/dL (6.3-8.2) 02/21/18 08:07 Albumin 3.0 g/dL (3.9-5) L 02/21/18 08:07 Albumin/Globulin Ratio 0.8 % 02/21/18 08:07 Urine Color Red (Yellow) 02/19/18 Unknown Urine Turbidity Cloudy (Clear) 02/19/18 Unknown Urine pH 8.0 (5.0-7.0) H 02/19/18 Unknown Ur Specific [place] 1.013 (1.003-1.030) 02/19/18 Unknown Urine Protein 100 mg/dl mg/dL (Negative) 02/19/18 Unknown Urine Glucose (UA) Neg mg/dL (Negative) 02/19/18 Unknown Urine Ketones Neg mg/dL (Negative) 02/19/18 Unknown Urine Blood Lg (Negative) 02/19/18 Unknown Urine Nitrite Neg (Negative) 02/19/18 Unknown Urine Bilirubin Neg (Negative) 02/19/18 Unknown Urine Urobilinogen 2.0 mg/dL (<2.0) 02/19/18 Unknown Ur Leukocyte Esterase Lg (Negative) 02/19/18 Unknown Urine WBC (Auto) > 182.0 /HPF (0.0-6.0) H 02/19/18 Unknown Urine RBC (Auto) > 182.0 /HPF (0.0-6.0) 02/19/18 Unknown Urine Bacteria (Auto) 3+ /HPF (Negative) 02/19/18 Unknown Urine WBC Clumps 3+ /HPF 02/19/18 Unknown Nutrition/Malnutrition Assess - Dietary Evaluation Nutrition/Malnutrition Findings: Nutrition Notes Start: 02/21/18 14:12 Freq: Status: Active Protocol: Document 02/21/18 14:12 CP (Rec: 02/21/18 14:29 CP [id number]) Co-Sign 02/21/18 14:12 LP Nutrition Notes Need for Assessment generated from: MD Order Initial or Follow up Assessment Current Diagnosis Sepsis Stroke Other Pertinent Diagnosis Pneumonia, UTI, acute encephalopathy, DVT, Current Diet NPO Labs/Tests Na: 159 K: 3.1 Pertinent Medications D5 at 100 mL/hr Height 5 ft 5 in Weight 99.8 kg O'Brien Body Weight (lbs) 125.0 BMI 36.6 Subjective/Other Information MD consult for TPN d/t an infected PEG. Pt. has PICC line. Burn Absent Trauma Absent #1 Nutrition Diagnosis Inadequate oral intake Etiology infected PEG tube As Evidenced by Signs and Symptoms 0% of energy and protein needs met Is patient on ventilator? No Is Patient Ambulatory and/or Out of Bed No REE-([facility]-confined to bed) 1946.256 Kcal/Kg value to use for calculation 15 Approximate Energy Requirements Using 1497 kcal/Kg Calculation Used for Recommendations Kcal/kg Additional Notes Protein:62-78g(0.8-1 g/kg AdjBW) AdjBW 78kg Fluids: 1mL/kcal Nutrition Intervention Nutrition Support: Day 1 PPN at 100 mls/hr, Osmolality 624, 5% dextrose, 3 .3% amino acids, 0mEq Na, 96 mEq K, 10 mEq Mg, 12 mEq Ca, 24 mmol phos, 100:0 Cl Acetate , MVI, MTE, thiamine Kcal 720 Protein (gm) 78 Carbohydrates (gm) 120 Fat (gm) 0 Fluid (mL) 2,400 Fiber (gm) 0 Goal #1 PN meeting energy/protein needs as best as possible Anticipated Discharge Needs: Unable to determine at this time Follow-Up By: 02/22/18 Additional Comments Labs: PENELOPE Mejia Mg
[2018-02-21] MEDS ORDERED: CATHFLO IV ONE ×2 (16:00→23:00)
[2018-02-21] MEDS ORDERED: WATER FOR INJ (PF) ONE (19:45)
[2018-02-21] MEDS: KCL 10MEQ/100ML 10 MEQ/100 ML BAG IV SCH ×2 (19:55→21:55)
[2018-02-21] MEDS ORDERED: TPN ADULT 2,400 ML IV SCH (20:00)
[2018-02-21] MEDS ORDERED: WATER FOR INJ Sterile (PF) 10 ML ONE (22:25)
[2018-02-21] MEDS: LOVENOX SUB-Q SCH (22:26)
[2018-02-21] MEDS: LOPRESSOR PO SCH (22:26)
[2018-02-22] MEDS: MAXIPIME/NS 2 GM/100 ML 2 GM/100 ML BAG IV SCH ×3 (04:00→20:00)
[2018-02-22 05:28] LABS: Hematocrit 23.4 % (30.3-42.9); Mean Corpuscular HGB Conc 30 % (30-34); Platelet Count 261 K/mm3 (140-440); Red Blood Count 3.85 M/mm3 (3.65-5.03)
[2018-02-22 05:29] LABS: Mean Corpuscular Volume 61 fl (79-97); Red Cell Distribution Width 25.2 % (13.2-15.2)
[2018-02-22 05:46] LABS: BUN/Creatinine Ratio 36; Blood Urea Nitrogen 18 mg/dL (7-17); Calcium 8.8 mg/dL (8.4-10.2); Hemolysis Index 0
[2018-02-22] MEDS ORDERED: PROVENTIL IH ONE (06:11)
[2018-02-22] MEDS ORDERED: D50W (25GM) Syringe IV ONE (06:12)
[2018-02-22] MEDS ORDERED: HumuLIN R IV ONE (06:12)
[2018-02-22] MEDS ORDERED: CALCIUM GLUCONATE 1,000 MG in NACL 0.9% 100 ML IV ONE (06:12)
[2018-02-22] MEDS ORDERED: KIONEX PR ONE ×2 (07:57→12:00)
[2018-02-22] MEDS: LOPRESSOR PO SCH ×2 (10:00→21:13)
[2018-02-22] MEDS ORDERED: COZAAR PO SCH (10:00)
[2018-02-22] MEDS: COZAAR PO SCH (10:00)
--- NOTE | 2018-02-22 11:18 | Progress Note ---
Addendum entered and electronically signed by JANEY SANCHEZ MD 02/22/18 12:12: Patient seen and examined by me No cardiac events Will sign off Please call back if needed Original Note: Assessment and Plan Sepsis UTI Dehydration Pneumonia Hx of CVA, subdural hematoma with baseline aphasia Reflex Sinus tachycardia no evidence of atrial fibrillation. Hyperkalemia Anemic Conservative cardiac management. Subjective Date of service: 02/22/18 Principal diagnosis: Sepsis/UTI/encephalopathy Interval history: Stable sinus rhythm on telemetry monitoring. No arrhythmias seen thus far. Objective Vital Signs Temp Pulse Pulse Resp Resp BP Pulse Ox 02/22/18 08:48 90 18 02/22/18 08:43 100 02/22/18 08:35 94 H 16 02/22/18 07:57 98.4 F 98 H 20 107/66 99 02/22/18 04:26 98.9 F 102 H 18 122/59 100 02/21/18 23:32 100 02/21/18 23:18 97.7 F 113 H 18 125/78 100 02/21/18 19:50 98.3 F 104 H 16 112/84 100 02/21/18 18:50 106 H 02/21/18 18:30 100 02/21/18 15:57 98.2 F 110 H 20 138/94 100 02/21/18 11:21 98.4 F 105 H 20 156/97 100 - Physical Examination General: No Apparent Distress Cardiac: Positive: Reg Rate and Rhythm - Labs and Meds CBC 02/22/18 Range/Units 04:16 WBC 9.5 (4.5-11.0) K/mm3 RBC 3.85 (3.65-5.03) M/mm3 Hgb 7.0 L (10.1-14.3) gm/dl Hct 23.4 L (30.3-42.9) % Plt Count 261 (140-440) K/mm3 Comprehensive Metabolic Panel 02/22/18 Range/Units 04:16 Sodium 146 H D (137-145) mmol/L Potassium 6.1 H* D (3.6-5.0) mmol/L Chloride 116.1 H (98-107) mmol/L Carbon Dioxide 19 L (22-30) mmol/L BUN 18 H (7-17) mg/dL Creatinine 0.5 L (0.7-1.2) mg/dL Glucose 383 H (65-100) mg/dL Calcium 8.8 (8.4-10.2) mg/dL
[2018-02-22] MEDS: ZITHROMAX 500 MG in NACL 0.9% 250ML 250 ML IV SCH (11:33)
--- NOTE | 2018-02-22 14:36 | Gastroenterology Progress Note ---
Addendum entered and electronically signed by QUENTIN SAWANT MD 02/22/18 18:19: Patient seen and examined on 02/22/2017. Agree with A/P and recommendations as stated. Reviewed CT abdomen results Discussed case with Dr. Sawyer with surgery for assistance with management of wo und site of old PEG tube. Continue with TPN. Addendum entered and electronically signed by ALEXIA DEE NP 02/22/18 14:41: empiric PPI Original Note: Assessment and Plan This is a 52 yo female from [facility], chronic vegetative state, h/o CVA, subdural hematoma and baseline aphasia admitted for sepsis with fever and tachycardia. GI consulted for evaluation of PEG tube. - Patient Problems (1) PEG tube malfunction Current Visit: Yes Status: Chronic Plan to address problem: Patient with old PEG site with the enlargening opening and infection s/p removal and new PEG tube placement adjacent to the old PEG site at [facility]. -afebrile -WBC 9.5-trended down -abd CT w/o abscess -Keep NPo -continue TPN -continue broad spec antibtiotic coverage -recommend surgery consult for evaluation of old PEG site (with continued drainage) -continue supportive care -will follow Subjective Date of service: 02/22/18 Principal diagnosis: malfunctioning PEG Interval history: No acute distress. Objective - Constitutional Vitals: Temp Pulse Resp BP Pulse Ox 98.3 F 101 H 20 138/59 100 02/22/18 12:00 02/22/18 12:00 02/22/18 12:00 02/22/18 12:00 02/22/18 12:00 General appearance: no acute distress, other (non-verbal) - Respiratory Respiratory: bilateral: diminished - Cardiovascular Rhythm: other (tachycardia) - Gastrointestinal General gastrointestinal: Present: soft, non-distended, normal bowel sounds, other (A PEG tube in the mid abdomen with a ostomy bag over an opening with dark drainage adjacent to the PEG tube) - Labs CBC & Chem 7: 02/22/18 04:16 02/22/18 04:16 Labs: Laboratory Results - last 24 hr 02/22/18 02/22/18 04:16 04:16 WBC 9.5 RBC 3.85 Hgb 7.0 L Hct 23.4 L MCV 61 L MCH 18 L MCHC 30 RDW 25.2 H Plt Count 261 Sodium 146 H D Potassium 6.1 H* D Chloride 116.1 H Carbon Dioxide 19 L Anion Gap 17 BUN 18 H Creatinine 0.5 L Estimated GFR > 60 BUN/Creatinine Ratio 36 Glucose 383 H Calcium 8.8 Phosphorus 5.50 H D Magnesium 2.50 H
--- NOTE | 2018-02-22 16:53 | Consultation ---
History of Present Illness Consult date: 02/22/18 Reason for consult: wound care Requesting physician: QUENTIN SAWANT Chief complaint: chronic draining wound - History of present illness History of present illness: 52yo aphasic F with chronic draining wound adjacent to PEG site. Pt unable to give any history. History obtained from chart and discussion with Dr. Sawant. We are asked to see the patient for evaluation and management assistance of the chronic draining wound what used to have a PEG tube. Past History Past Medical History: stroke Past Surgical History: Other (PEG tube) Social history: other (from shelter) Medications and Allergies Allergies Allergy/AdvReac Type Severity Reaction Status Date / Time No Known Allergies Allergy Unverified 02/19/18 18:32 Home Medications Medication Instructions Recorded Confirmed Last Taken Type Unobtainable 02/20/18 02/20/18 Unknown History Active Meds: Active Medications Acetaminophen (Tylenol) 650 mg PO Q4H PRN PRN Reason: Fever >101 Cefepime HCl (Maxipime/Ns 2 Gm/100 Ml) 2 gm in 100 mls @ 200 mls/hr IV Q8H [facility]; Protocol Last Infusion: 02/22/18 12:31 Dose: Infused Documented by: Azithromycin 500 mg/ Sodium (Chloride) 250 mls @ 250 mls/hr IV Q24HR [facility] Last Infusion: 02/22/18 12:34 Dose: Infused Documented by: Amino Acids/Electrolytes/Dextrose (Tpn Adult) 2,400 mls @ 100 mls/hr IV DAILY@1999 [facility]; Protocol Stop: 02/22/18 19:59 Last Admin: 02/21/18 22:25 Dose: 100 mls/hr Documented by: Amino Acids/Electrolytes/Dextrose (Tpn Adult) 2,400 mls @ 100 mls/hr IV DAILY@1999 [facility]; Protocol Stop: 02/23/18 19:59 Losartan Potassium (Cozaar) 25 mg PO QDAY [facility] Last Admin: 02/22/18 10:00 Dose: Not Given Documented by: Metoprolol Tartrate (Lopressor) 25 mg PO BID [facility] Last Admin: 02/22/18 10:00 Dose: Not Given Documented by: Ondansetron HCl (Zofran) 4 mg IV Q8H PRN PRN Reason: Nausea And Vomiting Pantoprazole Sodium (Protonix) 40 mg IV QDAY [facility] Review of Systems ROS unobtainable: due to mental status Exam Vital Signs Temp Pulse Resp BP Pulse Ox 100.3 F H 145 H 17 127/95 97 02/19/18 18:05 02/19/18 18:05 02/19/18 18:05 02/19/18 18:05 02/19/18 18:05 - General physical appearance Positive: no distress, no pain - Respiratory Positive: normal expansion, normal respiratory effort - Abdomen Abdomen: Present: soft, wound (covered by ostomy bag. Has bilious drainage in bag.), other (PEG in place. Capped). Absent: tender, distended, rigid - Integumentary no rash, no growths, no abnormal pigmentation Results - Labs 02/22/18 04:16 02/22/18 04:16 Abnormal lab results 02/22/18 02/22/18 Range/Units 04:16 04:16 Hgb 7.0 L (10.1-14.3) gm/dl Hct 23.4 L (30.3-42.9) % MCV 61 L (79-97) fl MCH 18 L (28-32) pg RDW 25.2 H (13.2-15.2) % Sodium 146 H D (137-145) mmol/L Potassium 6.1 H* D (3.6-5.0) mmol/L Chloride 116.1 H (98-107) mmol/L Carbon Dioxide 19 L (22-30) mmol/L BUN 18 H (7-17) mg/dL Creatinine 0.5 L (0.7-1.2) mg/dL Glucose 383 H (65-100) mg/dL Phosphorus 5.50 H D (2.5-4.5) mg/dL Magnesium 2.50 H (1.7-2.3) mg/dL Diabetes panel 02/22/18 Range/Units 04:16 Sodium 146 H D (137-145) mmol/L Potassium 6.1 H* D (3.6-5.0) mmol/L Chloride 116.1 H (98-107) mmol/L Carbon Dioxide 19 L (22-30) mmol/L BUN 18 H (7-17) mg/dL Creatinine 0.5 L (0.7-1.2) mg/dL Glucose 383 H (65-100) mg/dL Calcium 8.8 (8.4-10.2) mg/dL Calcium panel 02/22/18 Range/Units 04:16 Calcium 8.8 (8.4-10.2) mg/dL Phosphorus 5.50 H D (2.5-4.5) mg/dL Pituitary panel 02/22/18 Range/Units 04:16 Sodium 146 H D (137-145) mmol/L Potassium 6.1 H* D (3.6-5.0) mmol/L Chloride 116.1 H (98-107) mmol/L Carbon Dioxide 19 L (22-30) mmol/L BUN 18 H (7-17) mg/dL Creatinine 0.5 L (0.7-1.2) mg/dL Glucose 383 H (65-100) mg/dL Calcium 8.8 (8.4-10.2) mg/dL Adrenal panel 02/22/18 Range/Units 04:16 Sodium 146 H D (137-145) mmol/L Potassium 6.1 H* D (3.6-5.0) mmol/L Chloride 116.1 H (98-107) mmol/L Carbon Dioxide 19 L (22-30) mmol/L BUN 18 H (7-17) mg/dL Creatinine 0.5 L (0.7-1.2) mg/dL Glucose 383 H (65-100) mg/dL Calcium 8.8 (8.4-10.2) mg/dL - Imaging CT scan - abdomen: report reviewed, image reviewed CT scan - pelvis: report reviewed, image reviewed Assessment and Plan - Patient Problems (1) Acquired gastric fistula Current Visit: Yes Status: Acute Plan to address problem: Pt stable. This is a chronically drainage tract from a previous PEG tube. First step would be to decompress the stomach by placing the PEG on suction. Hopefully, this will decrease the outflow and help the tract close. It appears as though the tract has been there for a while. If so, then it is very likely that the tract has already epithelialized. In that case, tract would have to be surgically divided. Rec: 1) Place PEG on low intermittent suction. Monitor drainage over the next few weeks 2) Continue TPN 3) If we are not seeing improvement over the next few weeks, then consider surgical intervention with ligation of the tract. Please call with questions. time=30min
--- NOTE | 2018-02-22 17:29 | Progress Note ---
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 In addition, there was evidence of UTI and possible afib with RVR. She was also found to have a malfunctioning PEG tube. pCXR Impression: Hazy opacity left lung base concerning for atelectasis verus pneumonia, remote granulomatous disease. -Sepsis secondary to urinary tract infection and possible pneumonia: Continue IV antibiotics, follow cultures -UTI (urinary tract infection): treat with abx, follow cultures -Acute encephalopathy Secondary to sepsis and UTI: treat the infection -Possible LLL NH/HAP Pneumonia: continue abx -Hypernatremia: IV D5W for now -PEG tube malfunction, old PEG site is draining, so anything you put in new PEG it goes thru old PEG site via a fistula: appreciate GI input, continue TPN -Acquired gastric fistula: appreciated GS input, -?Atrial fibrillation with RVR: Cardiology consulted -DVT prophylaxis: Lovenox 40 mg subcutaneous daily and GI prophylaxis Full code new issue: E (staph epidermis) bacteremia, consulted ID, I guess the Azithromycin is helping decrease the WBC to normal because of sensitivity, ?benefit of cefepime, urine culture was ordered but cancelled History Interval history: Patient was seen and examined. Follow-up on current diagnosis of fevers. Overnight uneventful. Imaging, nursing note, chart, labs and old chart reviewed. Hospitalist Physical - Physical exam Narrative exam: Gen: severe ill appearing, nonverbal, chronically debilitated, HEENT: NCAT, EOMI, PERRL, OP and mm dry Neck: supple, no adenopathy, no thyromegaly, no JVD CVS/Heart: RRR, normal S1S2, pulses present bilaterally Chest/Lungs: diminished bs bilateral Symmetrical chest expansion, good air entry bilaterally GI/Abdomen: PEG with bag over it, draining brown substance, ?bile vs fecal material, +bowel sounds, no guarding or rebound /Bladder: mobley in place Extermity/Skin: leg atrophic, foot drop bilaterally MSK: no FROM x 4 Neuro: CN 2-12 grossly intact, doesn't follow commands, Psych: unresponsive - Constitutional Vitals: Temp Pulse Resp BP Pulse Ox 98.3 F 101 H 20 138/59 100 02/22/18 12:00 02/22/18 12:00 02/22/18 12:00 02/22/18 12:00 02/22/18 12:00 General appearance: Present: no acute distress Results - Labs CBC & Chem 7: 02/22/18 04:16 02/22/18 04:16 Labs: Laboratory Last Values WBC 9.5 K/mm3 (4.5-11.0) 02/22/18 04:16 RBC 3.85 M/mm3 (3.65-5.03) 02/22/18 04:16 Hgb 7.0 gm/dl (10.1-14.3) L 02/22/18 04:16 Hct 23.4 % (30.3-42.9) L 02/22/18 04:16 MCV 61 fl (79-97) L 02/22/18 04:16 MCH 18 pg (28-32) L 02/22/18 04:16 MCHC 30 % (30-34) 02/22/18 04:16 RDW 25.2 % (13.2-15.2) H 02/22/18 04:16 Plt Count 261 K/mm3 (140-440) 02/22/18 04:16 Add Manual Diff Complete 02/21/18 08:12 Total Counted 100 02/21/18 08:12 Seg Neuts % (Manual) 81.0 % (40.0-70.0) H 02/21/18 08:12 Band Neutrophils % 0 % 02/21/18 08:12 Lymphocytes % (Manual) 8.0 % (13.4-35.0) L 02/21/18 08:12 Reactive Lymphs % (Man) 0 % 02/21/18 08:12 Monocytes % (Manual) 2.0 % (0.0-7.3) 02/21/18 08:12 Eosinophils % (Manual) 9.0 % (0.0-4.3) H 02/21/18 08:12 Basophils % (Manual) 0 % (0.0-1.8) 02/21/18 08:12 Metamyelocytes % 0 % 02/21/18 08:12 Myelocytes % 0 % 02/21/18 08:12 Promyelocytes % 0 % 02/21/18 08:12 Blast Cells % 0 % 02/21/18 08:12 Nucleated RBC % Not Reportable 02/21/18 08:12 Seg Neutrophils # Man 9.6 K/mm3 (1.8-7.7) H 02/21/18 08:12 Band Neutrophils # 0.0 K/mm3 02/21/18 08:12 Lymphocytes # (Manual) 1.0 K/mm3 (1.2-5.4) L 02/21/18 08:12 Abs React Lymphs (Man) 0.0 K/mm3 02/21/18 08:12 Monocytes # (Manual) 0.2 K/mm3 (0.0-0.8) 02/21/18 08:12 Eosinophils # (Manual) 1.1 K/mm3 (0.0-0.4) H 02/21/18 08:12 Basophils # (Manual) 0.0 K/mm3 (0.0-0.1) 02/21/18 08:12 Metamyelocytes # 0.0 K/mm3 02/21/18 08:12 Myelocytes # 0.0 K/mm3 02/21/18 08:12 Promyelocytes # 0.0 K/mm3 02/21/18 08:12 Blast Cells # 0.0 K/mm3 02/21/18 08:12 WBC Morphology Not Reportable 02/21/18 08:12 Hypersegmented Neuts Not Reportable 02/21/18 08:12 Hyposegmented Neuts Not Reportable 02/21/18 08:12 Hypogranular Neuts Not Reportable 02/21/18 08:12 Smudge Cells Not Reportable 02/21/18 08:12 Toxic Granulation Not Reportable 02/21/18 08:12 Toxic Vacuolation Not Reportable 02/21/18 08:12 Dohle Bodies Not Reportable 02/21/18 08:12 Pelger-Huet Anomaly Not Reportable 02/21/18 08:12 Jamair Rods Not Reportable 02/21/18 08:12 Platelet Estimate Consistent w auto 02/21/18 08:12 Clumped Platelets Not Reportable 02/21/18 08:12 Plt Clumps, EDTA Not Reportable 02/21/18 08:12 Large Platelets Not Reportable 02/21/18 08:12 Giant Platelets Not Reportable 02/21/18 08:12 Platelet Satelliting Not Reportable 02/21/18 08:12 Plt Morphology Comment Not Reportable 02/21/18 08:12 RBC Morphology Not Reportable 02/21/18 08:12 Dimorphic RBCs Not Reportable 02/21/18 08:12 Polychromasia Not Reportable 02/21/18 08:12 Hypochromasia 2+ 02/21/18 08:12 Poikilocytosis 1+ 02/21/18 08:12 Anisocytosis 2+ 02/21/18 08:12 Microcytosis 2+ 02/21/18 08:12 Macrocytosis Not Reportable 02/21/18 08:12 Spherocytes Not Reportable 02/21/18 08:12 Pappenheimer Bodies Not Reportable 02/21/18 08:12 Sickle Cells Not Reportable 02/21/18 08:12 Target Cells 1+ 02/21/18 08:12 Tear Drop Cells Not Reportable 02/21/18 08:12 Ovalocytes Not Reportable 02/21/18 08:12 Helmet Cells Not Reportable 02/21/18 08:12 [place] Bodies Not Reportable 02/21/18 08:12 [place] Rings Not Reportable 02/21/18 08:12 [place] Cells Not Reportable 02/21/18 08:12 Bite Cells Not Reportable 02/21/18 08:12 Crenated Cell Not Reportable 02/21/18 08:12 Elliptocytes Not Reportable 02/21/18 08:12 Acanthocytes (Spur) Not Reportable 02/21/18 08:12 Rouleaux Not Reportable 02/21/18 08:12 Hemoglobin C Crystals Not Reportable 02/21/18 08:12 Schistocytes Not Reportable 02/21/18 08:12 Malaria parasites Not Reportable 02/21/18 08:12 Joel Bodies Not Reportable 02/21/18 08:12 Hem Pathologist Commnt No 02/21/18 08:12 Sodium 146 mmol/L (137-145) H D 02/22/18 04:16 Potassium 6.1 mmol/L (3.6-5.0) H* D 02/22/18 04:16 Chloride 116.1 mmol/L (98-107) H 02/22/18 04:16 Carbon Dioxide 19 mmol/L (22-30) L 02/22/18 04:16 Anion Gap 17 mmol/L 02/22/18 04:16 BUN 18 mg/dL (7-17) H 02/22/18 04:16 Creatinine 0.5 mg/dL (0.7-1.2) L 02/22/18 04:16 Estimated GFR > 60 ml/min 02/22/18 04:16 BUN/Creatinine Ratio 36 % 02/22/18 04:16 Glucose 383 mg/dL (65-100) H 02/22/18 04:16 POC Glucose 129 (70-105) H 02/21/18 00:00 Lactic Acid 1.40 mmol/L (0.7-2.0) 02/19/18 21:10 Calcium 8.8 mg/dL (8.4-10.2) 02/22/18 04:16 Phosphorus 5.50 mg/dL (2.5-4.5) H D 02/22/18 04:16 Magnesium 2.50 mg/dL (1.7-2.3) H 02/22/18 04:16 Total Bilirubin 0.50 mg/dL (0.1-1.2) 02/21/18 08:07 AST 33 units/L (5-40) 02/21/18 08:07 ALT 83 units/L (7-56) H 02/21/18 08:07 Alkaline Phosphatase 92 units/L (35-129) 02/21/18 08:07 Total Protein 7.0 g/dL (6.3-8.2) 02/21/18 08:07 Albumin 3.0 g/dL (3.9-5) L 02/21/18 08:07 Albumin/Globulin Ratio 0.8 % 02/21/18 08:07 Urine Color Red (Yellow) 02/19/18 Unknown Urine Turbidity Cloudy (Clear) 02/19/18 Unknown Urine pH 8.0 (5.0-7.0) H 02/19/18 Unknown Ur Specific [place] 1.013 (1.003-1.030) 02/19/18 Unknown Urine Protein 100 mg/dl mg/dL (Negative) 02/19/18 Unknown Urine Glucose (UA) Neg mg/dL (Negative) 02/19/18 Unknown Urine Ketones Neg mg/dL (Negative) 02/19/18 Unknown Urine Blood Lg (Negative) 02/19/18 Unknown Urine Nitrite Neg (Negative) 02/19/18 Unknown Urine Bilirubin Neg (Negative) 02/19/18 Unknown Urine Urobilinogen 2.0 mg/dL (<2.0) 02/19/18 Unknown Ur Leukocyte Esterase Lg (Negative) 02/19/18 Unknown Urine WBC (Auto) > 182.0 /HPF (0.0-6.0) H 02/19/18 Unknown Urine RBC (Auto) > 182.0 /HPF (0.0-6.0) 02/19/18 Unknown Urine Bacteria (Auto) 3+ /HPF (Negative) 02/19/18 Unknown Urine WBC Clumps 3+ /HPF 02/19/18 Unknown Nutrition/Malnutrition Assess - Dietary Evaluation Nutrition/Malnutrition Findings: Nutrition Notes Start: 02/21/18 14:12 Freq: Status: Active Protocol: Document 02/22/18 10:47 CP (Rec: 02/22/18 10:57 CP [id number]) Co-Sign 02/22/18 10:47 LP Nutrition Notes Need for Assessment generated from: MD Order Initial or Follow up Reassessment Current Diagnosis Sepsis Stroke Other Pertinent Diagnosis Pneumonia, UTI, acute encephalopathy, DVT, Current Diet TPN at 100 mL/hr Labs/Tests Na: 146 K: 6.1 Chloride: 116.1 CO2: 19 Glucose: 383 Phos: 5.5 M.5 Pertinent Medications Reviewed. Height 5 ft 5 in Weight 99.8 kg [place] Body Weight (lbs) 125.0 BMI 36.6 Subjective/Other Information Day 2 TPN infusing at goal rate (100 ml/hr). Pt. unresponsive d/t AMS. Percent of energy/protein needs met: 48%/100% Burn Absent Trauma Absent #1 Nutrition Diagnosis Inadequate oral intake Diagnosis Progress(for reassessment Continues documentation) Is patient on ventilator? No Is Patient Ambulatory and/or Out of Bed No REE-([place]-confined to bed) 194.256 Kcal/Kg value to use for calculation 15 Approximate Energy Requirements Using 1497 kcal/Kg Calculation Used for Recommendations Kcal/kg Additional Notes Protein:62-78g(0.8-1 g/kg AdjBW) AdjBW 78kg Fluids: 1mL/kcal Nutrition Intervention Nutrition Support: Day 2 PPN at 100 mls/hr, Osmolality 582, 0 mEq K, 5 mEq Mg, 0 mmols Phos, MVI, Thiamine Kcal 720 Protein (gm) 78 Carbohydrates (gm) 120 Fat (gm) 0 Fluid (mL) 2,400 Fiber (gm) 0 Goal #1 PN meeting energy/protein needs as best as possible Anticipated Discharge Needs: Unable to determine at this time Follow-Up By: 02/23/18 Additional Comments Labs: BMP Phos Mg
[2018-02-22] MEDS: PROTONIX IV SCH (18:01)
[2018-02-22] MEDS ORDERED: TPN ADULT 2,400 ML IV SCH (20:00)
[2018-02-23] MEDS: MAXIPIME/NS 2 GM/100 ML 2 GM/100 ML BAG IV SCH ×2 (04:00→11:27)
[2018-02-23 06:28] LABS: Hemoglobin 7.5 gm/dl (10.1-14.3); Mean Corpuscular HGB Conc 31 % (30-34); Platelet Count 227 K/mm3 (140-440); Red Blood Count 4.08 M/mm3 (3.65-5.03)
[2018-02-23 06:33] LABS: Mean Corpuscular Volume 59 fl (79-97); Red Cell Distribution Width 25.4 % (13.2-15.2)
[2018-02-23 06:42] LABS: BUN/Creatinine Ratio 48; Blood Urea Nitrogen 19 mg/dL (7-17); Calcium 8.6 mg/dL (8.4-10.2); Hemolysis Index 1
[2018-02-23] MEDS: PROTONIX IV SCH (11:27)
[2018-02-23] MEDS: LOPRESSOR PO SCH ×2 (11:28→21:21)
[2018-02-23] MEDS: COZAAR PO SCH (11:28)
[2018-02-23] MEDS: ZITHROMAX 500 MG in NACL 0.9% 250ML 250 ML IV SCH (11:29)
--- NOTE | 2018-02-23 12:51 | Progress Note ---
Assessment and Plan - Patient Problems (1) Acquired gastric fistula Current Visit: Yes Status: Acute Plan to address problem: Pt stable. This is a chronically drainage tract from a previous PEG tube. First step would be to decompress the stomach by placing the PEG on suction. Hopefully, this will decrease the outflow and help the tract close. As of this morning, the liquid drainage into the ostomy bag is less. It appears as though the tract has been there for a while. If so, then it is very likely that the tract has already epithelialized. In that case, tract would have to be surgically divided. Rec: 1) PEG on low intermittent suction. Monitor drainage over the next few weeks 2) Continue TPN 3) If we are not seeing improvement over the next few weeks, then consider surgical intervention with ligation of the tract. Please call with questions. time=10min Subjective Date of service: 02/23/18 Patient Reports: Positive: other (PEG was not connected to suction until today) Objective Vital Signs - 12hr 02/23/18 02/23/18 02/23/18 04:04 08:01 08:27 Temperature 98.4 F 98.3 F Pulse Rate 112 H 99 H Respiratory 16 18 Rate Blood Pressure 115/72 106/70 O2 Sat by Pulse 97 100 100 Oximetry 02/23/18 11:28 Temperature Pulse Rate 99 H Respiratory Rate Blood Pressure 106/70 O2 Sat by Pulse Oximetry - General physical appearance no distress, no pain - Abdomen soft, not tender, other (no output from PEG tube. PEG tube flushed easily. Only air in ostomy bag. Drainage is much less. ) - Integumentary no rash, no growths, no abnormal pigmentation - Labs 02/23/18 06:03 02/23/18 06:03 Diabetes panel 02/23/18 Range/Units 06:03 Sodium 150 H (137-145) mmol/L Potassium 3.2 L D (3.6-5.0) mmol/L Chloride 119.6 H (98-107) mmol/L Carbon Dioxide 19 L (22-30) mmol/L BUN 19 H (7-17) mg/dL Creatinine 0.4 L (0.7-1.2) mg/dL Glucose 102 H (65-100) mg/dL Calcium 8.6 (8.4-10.2) mg/dL Calcium panel 02/23/18 Range/Units 06:03 Calcium 8.6 (8.4-10.2) mg/dL Phosphorus 2.50 D (2.5-4.5) mg/dL Pituitary panel 02/23/18 Range/Units 06:03 Sodium 150 H (137-145) mmol/L Potassium 3.2 L D (3.6-5.0) mmol/L Chloride 119.6 H (98-107) mmol/L Carbon Dioxide 19 L (22-30) mmol/L BUN 19 H (7-17) mg/dL Creatinine 0.4 L (0.7-1.2) mg/dL Glucose 102 H (65-100) mg/dL Calcium 8.6 (8.4-10.2) mg/dL Adrenal panel 02/23/18 Range/Units 06:03 Sodium 150 H (137-145) mmol/L Potassium 3.2 L D (3.6-5.0) mmol/L Chloride 119.6 H (98-107) mmol/L Carbon Dioxide 19 L (22-30) mmol/L BUN 19 H (7-17) mg/dL Creatinine 0.4 L (0.7-1.2) mg/dL Glucose 102 H (65-100) mg/dL Calcium 8.6 (8.4-10.2) mg/dL
--- NOTE | 2018-02-23 14:05 | Progress Note ---
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 In addition, there was evidence of UTI and possible afib with RVR. She was also found to have a malfunctioning PEG tube. pCXR Impression: Hazy opacity left lung base concerning for atelectasis verus pneumonia, remote granulomatous disease. -Sepsis secondary to urinary tract infection and possible pneumonia: Continue IV antibiotics, follow cultures -UTI (urinary tract infection): treat with abx, urine culture not sent. -Acute encephalopathy Secondary to sepsis and UTI: treat the infection -Possible LLL NH/HAP Pneumonia with MRSE (staph epidermis) bacteremia: continue abx, consulted ID -Hypernatremia: IV D5W for now -Hyperkalemia, treated now hypokalemia: give small kcl iv -PEG tube malfunction, old PEG site is draining, so anything you put in new PEG it goes thru old PEG site via a fistula: appreciate GI input, continue TPN, LIS to PEG to try and close the fistula -Acquired gastric fistula: appreciated GS input, PEG to LIS -?Atrial fibrillation with RVR: Cardiology consulted -DVT prophylaxis: Lovenox 40 mg subcutaneous daily -Drop in HCT: repeat h/h Full code new issue: MRSE (staph epidermis) bacteremia, consulted ID await input, I guess the Azithromycin is helping decrease the WBC to normal because of sensitivity, ?benefit of cefepime, urine culture was ordered but cancelled History Interval history: Patient was seen and examined. Follow-up on current diagnosis of fevers. Overnight uneventful. Imaging, nursing note, chart, labs and old chart revi ewed. Hospitalist Physical - Physical exam Narrative exam: Gen: severe ill appearing, nonverbal, chronically debilitated, HEENT: NCAT, EOMI, PERRL, OP and mm dry Neck: supple, no adenopathy, no thyromegaly, no JVD CVS/Heart: RRR, normal S1S2, pulses present bilaterally Chest/Lungs: diminished bs bilateral Symmetrical chest expansion, good air entry bilaterally GI/Abdomen: PEG with bag over it, draining brown substance, ?bile vs fecal material, +bowel sounds, no guarding or rebound /Bladder: mobley in place Extermity/Skin: leg atrophic, foot drop bilaterally MSK: no FROM x 4 Neuro: CN 2-12 grossly intact, doesn't follow commands, Psych: unresponsive - Constitutional Vitals: Temp Pulse Resp BP Pulse Ox 98.3 F 99 H 18 106/70 100 02/23/18 08:27 02/23/18 11:28 02/23/18 08:27 02/23/18 11:28 02/23/18 08:27 General appearance: Present: no acute distress Results - Labs CBC & Chem 7: 02/23/18 06:03 02/23/18 06:03 Labs: Laboratory Last Values WBC 9.6 K/mm3 (4.5-11.0) 02/23/18 06:03 RBC 4.08 M/mm3 (3.65-5.03) 02/23/18 06:03 Hgb 7.5 gm/dl (10.1-14.3) L 02/23/18 06:03 Hct 24.0 % (30.3-42.9) L 02/23/18 06:03 MCV 59 fl (79-97) L 02/23/18 06:03 MCH 18 pg (28-32) L 02/23/18 06:03 MCHC 31 % (30-34) 02/23/18 06:03 RDW 25.4 % (13.2-15.2) H 02/23/18 06:03 Plt Count 227 K/mm3 (140-440) 02/23/18 06:03 Add Manual Diff Complete 02/21/18 08:12 Total Counted 100 02/21/18 08:12 Seg Neuts % (Manual) 81.0 % (40.0-70.0) H 02/21/18 08:12 Band Neutrophils % 0 % 02/21/18 08:12 Lymphocytes % (Manual) 8.0 % (13.4-35.0) L 02/21/18 08:12 Reactive Lymphs % (Man) 0 % 02/21/18 08:12 Monocytes % (Manual) 2.0 % (0.0-7.3) 02/21/18 08:12 Eosinophils % (Manual) 9.0 % (0.0-4.3) H 02/21/18 08:12 Basophils % (Manual) 0 % (0.0-1.8) 02/21/18 08:12 Metamyelocytes % 0 % 02/21/18 08:12 Myelocytes % 0 % 02/21/18 08:12 Promyelocytes % 0 % 02/21/18 08:12 Blast Cells % 0 % 02/21/18 08:12 Nucleated RBC % Not Reportable 02/21/18 08:12 Seg Neutrophils # Man 9.6 K/mm3 (1.8-7.7) H 02/21/18 08:12 Band Neutrophils # 0.0 K/mm3 02/21/18 08:12 Lymphocytes # (Manual) 1.0 K/mm3 (1.2-5.4) L 02/21/18 08:12 Abs React Lymphs (Man) 0.0 K/mm3 02/21/18 08:12 Monocytes # (Manual) 0.2 K/mm3 (0.0-0.8) 02/21/18 08:12 Eosinophils # (Manual) 1.1 K/mm3 (0.0-0.4) H 02/21/18 08:12 Basophils # (Manual) 0.0 K/mm3 (0.0-0.1) 02/21/18 08:12 Metamyelocytes # 0.0 K/mm3 02/21/18 08:12 Myelocytes # 0.0 K/mm3 02/21/18 08:12 Promyelocytes # 0.0 K/mm3 02/21/18 08:12 Blast Cells # 0.0 K/mm3 02/21/18 08:12 WBC Morphology Not Reportable 02/21/18 08:12 Hypersegmented Neuts Not Reportable 02/21/18 08:12 Hyposegmented Neuts Not Reportable 02/21/18 08:12 Hypogranular Neuts Not Reportable 02/21/18 08:12 Smudge Cells Not Reportable 02/21/18 08:12 Toxic Granulation Not Reportable 02/21/18 08:12 Toxic Vacuolation Not Reportable 02/21/18 08:12 Dohle Bodies Not Reportable 02/21/18 08:12 Pelger-Huet Anomaly Not Reportable 02/21/18 08:12 Jamari Rods Not Reportable 02/21/18 08:12 Platelet Estimate Consistent w auto 02/21/18 08:12 Clumped Platelets Not Reportable 02/21/18 08:12 Plt Clumps, EDTA Not Reportable 02/21/18 08:12 Large Platelets Not Reportable 02/21/18 08:12 Giant Platelets Not Reportable 02/21/18 08:12 Platelet Satelliting Not Reportable 02/21/18 08:12 Plt Morphology Comment Not Reportable 02/21/18 08:12 RBC Morphology Not Reportable 02/21/18 08:12 Dimorphic RBCs Not Reportable 02/21/18 08:12 Polychromasia Not Reportable 02/21/18 08:12 Hypochromasia 2+ 02/21/18 08:12 Poikilocytosis 1+ 02/21/18 08:12 Anisocytosis 2+ 02/21/18 08:12 Microcytosis 2+ 02/21/18 08:12 Macrocytosis Not Reportable 02/21/18 08:12 Spherocytes Not Reportable 02/21/18 08:12 Pappenheimer Bodies Not Reportable 02/21/18 08:12 Sickle Cells Not Reportable 02/21/18 08:12 Target Cells 1+ 02/21/18 08:12 Tear Drop Cells Not Reportable 02/21/18 08:12 Ovalocytes Not Reportable 02/21/18 08:12 Helmet Cells Not Reportable 02/21/18 08:12 [place] Bodies Not Reportable 02/21/18 08:12 [place] Rings Not Reportable 02/21/18 08:12 [place] Cells Not Reportable 02/21/18 08:12 Bite Cells Not Reportable 02/21/18 08:12 Crenated Cell Not Reportable 02/21/18 08:12 Elliptocytes Not Reportable 02/21/18 08:12 Acanthocytes (Spur) Not Reportable 02/21/18 08:12 Rouleaux Not Reportable 02/21/18 08:12 Hemoglobin C Crystals Not Reportable 02/21/18 08:12 Schistocytes Not Reportable 02/21/18 08:12 Malaria parasites Not Reportable 02/21/18 08:12 Joel Bodies Not Reportable 02/21/18 08:12 Hem Pathologist Commnt No 02/21/18 08:12 Sodium 150 mmol/L (137-145) H 02/23/18 06:03 Potassium 3.2 mmol/L (3.6-5.0) L D 02/23/18 06:03 Chloride 119.6 mmol/L (98-107) H 02/23/18 06:03 Carbon Dioxide 19 mmol/L (22-30) L 02/23/18 06:03 Anion Gap 15 mmol/L 02/23/18 06:03 BUN 19 mg/dL (7-17) H 02/23/18 06:03 Creatinine 0.4 mg/dL (0.7-1.2) L 02/23/18 06:03 Estimated GFR > 60 ml/min 02/23/18 06:03 BUN/Creatinine Ratio 48 % 02/23/18 06:03 Glucose 102 mg/dL (65-100) H 02/23/18 06:03 POC Glucose 129 (70-105) H 02/21/18 00:00 Lactic Acid 1.40 mmol/L (0.7-2.0) 02/19/18 21:10 Calcium 8.6 mg/dL (8.4-10.2) 02/23/18 06:03 Phosphorus 2.50 mg/dL (2.5-4.5) D 02/23/18 06:03 Magnesium 2.30 mg/dL (1.7-2.3) 02/23/18 06:03 Total Bilirubin 0.50 mg/dL (0.1-1.2) 02/21/18 08:07 AST 33 units/L (5-40) 02/21/18 08:07 ALT 83 units/L (7-56) H 02/21/18 08:07 Alkaline Phosphatase 92 units/L (35-129) 02/21/18 08:07 Total Protein 7.0 g/dL (6.3-8.2) 02/21/18 08:07 Albumin 3.0 g/dL (3.9-5) L 02/21/18 08:07 Albumin/Globulin Ratio 0.8 % 02/21/18 08:07 Urine Color Red (Yellow) 02/19/18 Unknown Urine Turbidity Cloudy (Clear) 02/19/18 Unknown Urine pH 8.0 (5.0-7.0) H 02/19/18 Unknown Ur Specific [place] 1.013 (1.003-1.030) 02/19/18 Unknown Urine Protein 100 mg/dl mg/dL (Negative) 02/19/18 Unknown Urine Glucose (UA) Neg mg/dL (Negative) 02/19/18 Unknown Urine Ketones Neg mg/dL (Negative) 02/19/18 Unknown Urine Blood Lg (Negative) 02/19/18 Unknown Urine Nitrite Neg (Negative) 02/19/18 Unknown Urine Bilirubin Neg (Negative) 02/19/18 Unknown Urine Urobilinogen 2.0 mg/dL (<2.0) 02/19/18 Unknown Ur Leukocyte Esterase Lg (Negative) 02/19/18 Unknown Urine WBC (Auto) > 182.0 /HPF (0.0-6.0) H 02/19/18 Unknown Urine RBC (Auto) > 182.0 /HPF (0.0-6.0) 02/19/18 Unknown Urine Bacteria (Auto) 3+ /HPF (Negative) 02/19/18 Unknown Urine WBC Clumps 3+ /HPF 02/19/18 Unknown Nutrition/Malnutrition Assess - Dietary Evaluation Nutrition/Malnutrition Findings: Nutrition Notes Start: 02/21/18 14:12 Freq: Status: Active Protocol: Document 02/23/18 08:30 CP (Rec: 02/23/18 08:36 CP [id number]) Co-Sign 02/23/18 08:30 LP Nutrition Notes Need for Assessment generated from: MD Order Initial or Follow up Reassessment Current Diagnosis Sepsis Stroke Other Pertinent Diagnosis Pneumonia, UTI, acute encephalopathy, DVT, Current Diet TPN at 100 mL/hr Labs/Tests Na 150 K 3.2 Pertinent Medications Reviewed. Height 5 ft 5 in Weight 99.8 kg [place] Body Weight (lbs) 125.0 BMI 36.6 Subjective/Other Information Day 3 TPN infusing at goal rate (100 ml/hr). Pt/ unresponsive d/t AMS. Percent of energy/protein needs met: 48%/100% Burn Absent Trauma Absent #1 Nutrition Diagnosis Inadequate oral intake Diagnosis Progress(for reassessment Continues documentation) Is patient on ventilator? No Is Patient Ambulatory and/or Out of Bed No REE-([place]-confined to bed) 1946.256 Kcal/Kg value to use for calculation 15 Approximate Energy Requirements Using 1497 kcal/Kg Calculation Used for Recommendations Kcal/kg Additional Notes Protein:62-78g(0.8-1 g/kg AdjBW) AdjBW 78kg Fluids: 1mL/kcal Nutrition Intervention Nutrition Support: Day 3 PPN at 100 mls/hr, osmolality 616, 80 mEq K, 20 mmols phos, MVI, MTE, thiamine Kcal 720 Protein (gm) 78 Carbohydrates (gm) 120 Fat (gm) 0 Fluid (mL) 2,400 Fiber (gm) 0 Goal #1 PN meeting energy/protein needs as best as possible Anticipated Discharge Needs: Unable to determine at this time Follow-Up By: 02/24/18 Additional Comments Labs: BMP Phos Mg
--- NOTE | 2018-02-23 14:56 | Gastroenterology Progress Note ---
Addendum entered and electronically signed by QUENTIN SAWANT MD 02/23/18 18:36: Patient seen and examined. Agree with A/P and recommendations as stated. Appreciate surgery consult and recommendations regarding abdominal wound from previous PEG. Agree with plan for keep new PEG to suction and allowing the wound to heal. TPN for nutrition in the meantime. - will sign off. please call with questions. Original Note: Assessment and Plan This is a 52 yo female from [facility], chronic vegetative state, h/o CVA, subdural hematoma and baseline aphasia admitted for sepsis with fever and tachycardia. GI consulted for evaluation of PEG tube. - Patient Problems (1) PEG tube malfunction Current Visit: Yes Status: Chronic Plan to address problem: Patient with old PEG site with the enlargening opening and infection s/p removal with chronic drainage and new PEG tube placement adjacent to the old PEG site at [facility]. 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 -surgery following with recommendations for PEG to suction for now which will hopefully decrease drainage (less drainage in ostomy today) and help facilitate tract closer with plans to monitor over the next few weeks and consider surgical intervention with ligation of the tract if no improvement (agree with plan) -Keep NPO for now and continue TPN -continue broad spec antibiotic coverage -continue supportive care -no further GI recommendations at this time- further management per surgery -will sign off, please call if ended Subjective Date of service: 02/23/18 Principal diagnosis: malfunctioning PEG Interval history: No acute distress. PEG to LIS with no output. Minimal drainage in ostomy bag fr om old PEG site. Objective - Constitutional Vitals: Temp Pulse Resp BP Pulse Ox 98.3 F 99 H 12 106/70 100 02/23/18 08:27 02/23/18 11:28 02/23/18 10:00 02/23/18 11:28 02/23/18 10:00 General appearance: no acute distress, other (nonverbal) - Respiratory Respiratory: bilateral: diminished - Cardiovascular Rhythm: regular Heart Sounds: Present: S1 & S2 - Gastrointestinal General gastrointestinal: Present: soft, non-distended, normal bowel sounds, other (+PEG, ostomy bag over old PEG site with minimal drainage) - Labs CBC & Chem 7: 02/23/18 06:03 02/23/18 06:03 Labs: Laboratory Results - last 24 hr 02/23/18 02/23/18 06:03 06:03 WBC 9.6 RBC 4.08 Hgb 7.5 L Hct 24.0 L MCV 59 L MCH 18 L MCHC 31 RDW 25.4 H Plt Count 227 Sodium 150 H Potassium 3.2 L D Chloride 119.6 H Carbon Dioxide 19 L Anion Gap 15 BUN 19 H Creatinine 0.4 L Estimated GFR > 60 BUN/Creatinine Ratio 48 Glucose 102 H Calcium 8.6 Phosphorus 2.50 D Magnesium 2.30
--- NOTE | 2018-02-23 15:36 | Consultation ---
History of Present Illness - Reason for Consult Consult date: 02/23/18 Staph Epidermis Bacteremia Requesting physician: TOMEKA BAH - History of Present Illness This patient is a 52--year-old female , presenting from a senior living with a past medical history of subdural hematoma and cerebrovascular accident that left her baseline aphasic and dysphagia. She presented in the ED on 02/19/18 with Fever. Upon further examination, patient had a PEG tube which was malfunctioning and removed. The PEG tube hole is healing and continues to drain gastric fluid. On admission WBC 15.4, Creatinine 0.7,, Temperature 100.3, HR 145, BP 127/95. U/A was consistent to UTI, Chest xray shows hazy opacity left lung base concerning for atelectasis vs pneumonia, CT of abdomen and pelvis reveal current PEG tube with distal tip in anterior mid stomach, no fluid collection to suggest abscess, also has IVC filter. Patient is nonverbal at baseline. No family at bedside. History obtained from chart review. Past History Past Medical History: stroke Past Surgical History: Other (PEG tube) Social history: other (from senior living) Medications and Allergies Allergies Allergy/AdvReac Type Severity Reaction Status Date / Time No Known Allergies Allergy Unverified 02/19/18 18:32 Home Medications Medication Instructions Recorded Confirmed Last Taken Type Unobtainable 02/20/18 02/20/18 Unknown History Active Meds: Active Medications Acetaminophen (Tylenol) 650 mg PO Q4H PRN PRN Reason: Fever >101 Cefepime HCl (Maxipime/Ns 2 Gm/100 Ml) 2 gm in 100 mls @ 200 mls/hr IV Q8H [facility]; Protocol Last Admin: 02/23/18 11:27 Dose: 200 mls/hr Documented by: Azithromycin 500 mg/ Sodium (Chloride) 250 mls @ 250 mls/hr IV Q24HR [facility] Last Admin: 02/23/18 11:29 Dose: 250 mls/hr Documented by: Amino Acids/Electrolytes/Dextrose (Tpn Adult) 2,400 mls @ 100 mls/hr IV DAILY@1999 [facility]; Protocol Stop: 02/23/18 19:59 Last Admin: 02/22/18 22:04 Dose: 100 mls/hr Documented by: Amino Acids/Electrolytes/Dextrose (Tpn Adult) 2,400 mls @ 100 mls/hr IV DAILY @1999 [facility]; Protocol Stop: 02/24/18 19:59 Potassium Chloride (Kcl 10meq/100ml) 10 meq in 100 mls @ 100 mls/hr IV Q1H [facility] Stop: 02/23/18 17:59 Losartan Potassium (Cozaar) 25 mg PO QDAY [facility] Last Admin: 02/23/18 11:28 Dose: Not Given Documented by: Metoprolol Tartrate (Lopressor) 25 mg PO BID [facility] Last Admin: 02/23/18 11:28 Dose: Not Given Documented by: Ondansetron HCl (Zofran) 4 mg IV Q8H PRN PRN Reason: Nausea And Vomiting Pantoprazole Sodium (Protonix) 40 mg IV QDAY [facility] Last Admin: 02/23/18 11:27 Dose: 40 mg Documented by: Review of Systems ROS unobtainable: due to mental status Physical Examination - Physical Exam Narrative exam: Constitutional: Somnolent, traumtic brain subdural hemorhage, nonverbal . No acute distress Head, Ears, Nose: Normocephalic, atraumatic. External ears, nose normal Eyes: Conjunctivae/corneas clear. No icterus. No ptosis. Neck: Supple, no meningeal signs Oral: unable to assess Cardiovascular: S1, S2 normal. Respiratory: Good air entry, clear to auscultation bilaterally GI: +Gastric fistula Musculoskeletal: No pedal edema, no cyanosis. Skin: No rash or abscess. Hem/Lymphatic: No palpable cervical or supraclavicular nodes. No lymphangitis Psych: Mood : somnolent Neurological: somnolent - Constitutional Vitals: Vital Signs Temp Pulse Resp BP Pulse Ox 98.3 F 99 H 12 106/70 100 02/23/18 08:27 02/23/18 11:28 02/23/18 10:00 02/23/18 11:28 02/23/18 10:00 Temperature -Last 24 Hours Temperature 98.3 F Temperature 98.4 F Temperature 98.9 F Temperature 98.3 F Temperature 98.6 F Results - Labs CBC & Chem 7: 02/23/18 06:03 02/23/18 06:03 Labs: Abnormal lab results 02/23/18 02/23/18 Range/Units 06:03 06:03 Hgb 7.5 L (10.1-14.3) gm/dl Hct 24.0 L (30.3-42.9) % MCV 59 L (79-97) fl MCH 18 L (28-32) pg RDW 25.4 H (13.2-15.2) % Sodium 150 H (137-145) mmol/L Potassium 3.2 L D (3.6-5.0) mmol/L Chloride 119.6 H (98-107) mmol/L Carbon Dioxide 19 L (22-30) mmol/L BUN 19 H (7-17) mg/dL Creatinine 0.4 L (0.7-1.2) mg/dL Glucose 102 H (65-100) mg/dL Assessment and Plan Imaging 02/19/18 Chest xray: Hazy opacity left lung base concerning for atelectasis vis pneumonia 02/21/18 - CT Abdomen/Pelvis: Metal artifact from right Hip arthroplast and IVC Filter. Current PEG tube with distal tip in anterior mid stomach. Previous PEG tube tract slightly more lateral with adjacent fat stranding. This may reflect edema, inflammation, or infection. No fluid collection to suggest abscess. Cultures 02/19/2018 Blood; Staph.epidermis, 4 out of 4 bottles A/P: 1. Sepsis on Admission: evidenced by leukocytosis, fever and tachycardia. Staph Epidermis, 4 out of 4 bottles. Source most likely PICC line, U/A consistent with UTI. 2. Staph Epidermis Bacteremia: Right PICC line needed for TPN. Will treat with vancomycim and order follow up cultures to ensure clearance. 3. Gastric Fistula: Peg tube malfunction 4. UTI: U/A consistent with UTI. Neurogenic bladder with chronic indwelling catheter. 5. 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 Plan: -Order TTE -Discontinue Cefepime and Azithromycin -Continue Vancomycin -f/u blood cultures -Blood cultures ordered to ensure clearance [facility] M: [phone] O:[phone]
[2018-02-23] MEDS ORDERED: VANCOMYCIN PHARMACY TO DOSE IV SCH (16:00)
[2018-02-23 18:07] LABS: Hematocrit 24.1 % (30.3-42.9); Hemoglobin 7.3 gm/dl (10.1-14.3)
[2018-02-23] MEDS: KCL 10MEQ/100ML 10 MEQ/100 ML BAG IV SCH ×2 (19:19→21:23)
[2018-02-23] MEDS: VANCOMYCIN 1,500 MG in NACL 0.9% 500 ML 500 ML IV SCH (19:19)
[2018-02-23] MEDS ORDERED: TPN ADULT 2,400 ML IV SCH (20:00)
[2018-02-24] MEDS: VANCOMYCIN 1,500 MG in NACL 0.9% 500 ML 500 ML IV SCH ×2 (01:46→09:49)
[2018-02-24 07:16] LABS: Hematocrit 21.4 % (30.3-42.9); Hemoglobin 6.7 gm/dl (10.1-14.3); Mean Corpuscular HGB Conc 31 % (30-34); Platelet Count 193 K/mm3 (140-440); Red Blood Count 3.62 M/mm3 (3.65-5.03)
[2018-02-24 07:17] LABS: Mean Corpuscular Volume 59 fl (79-97)
[2018-02-24 07:18] LABS: Red Cell Distribution Width 25.5 % (13.2-15.2)
[2018-02-24 07:37] LABS: BUN/Creatinine Ratio 40; Blood Urea Nitrogen 16 mg/dL (7-17); Calcium 8.6 mg/dL (8.4-10.2); Hemolysis Index 0
--- NOTE | 2018-02-24 08:16 | Progress Note ---
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 In addition, there was evidence of UTI and possible afib with RVR. She was also found to have a malfunctioning PEG tube. pCXR Impression: Hazy opacity left lung base concerning for atelectasis verus pneumonia, remote granulomatous disease. -Sepsis secondary to urinary tract infection and possible pneumonia: Continue IV antibiotics, follow cultures -UTI (urinary tract infection): treat with abx, urine culture not sent. -Acute encephalopathy Secondary to sepsis and UTI: treat the infection -Possible LLL NH/HAP Pneumonia with MRSE (staph epidermis) bacteremia: continue abx, consulted ID -Hypernatremia: IV D5W for now -Hyperkalemia, treated now hypokalemia: give small kcl iv -PEG tube malfunction, old PEG site is draining, so anything you put in new PEG it goes thru old PEG site via a fistula: appreciate GI input, continue TPN, LIS to PEG to try and close the fistula -Acquired gastric fistula: appreciated GS input, PEG to LIS -?Atrial fibrillation with RVR: Cardiology consulted -DVT prophylaxis: Lovenox 40 mg subcutaneous daily -Drop in HCT: repeat h/h Full code new issue: MRSE (staph epidermis) bacteremia, most likely line infection per ID, awaiting finalization of repeat blood ctx to be negative to do another picc transfer out of [facility] to [facility] with remote transfuse 2 units prbc History Interval history: Patient was seen and examined. Follow-up on current diagnosis of fevers. Overnight uneventful. Imaging, nursing note, chart, labs and old chart reviewed. Hospitalist Physical - Physical exam Narrative exam: Gen: severe ill appearing, nonverbal, chronically debilitated, HEENT: NCAT, EOMI, PERRL, OP and mm dry Neck: supple, no adenopathy, no thyromegaly, no JVD CVS/Heart: Regular tachycardia normal S1S2, pulses present bilaterally Chest/Lungs: diminished bs bilateral Symmetrical chest expansion, good air entry bilaterally GI/Abdomen: PEG with bag over it, draining brown substance, ?bile vs fecal mater ial, +bowel sounds, no guarding or rebound /Bladder: mobley in place Extermity/Skin: leg atrophic, foot drop bilaterally MSK: no FROM x 4 Neuro: CN 2-12 grossly intact, doesn't follow commands, Psych: unresponsive - Constitutional Vitals: Temp Pulse Resp BP Pulse Ox 98.9 F 106 H 18 117/66 100 02/24/18 04:48 02/24/18 04:49 02/24/18 04:48 02/24/18 04:48 02/24/18 04:49 General appearance: Present: no acute distress Results - Labs CBC & Chem 7: 02/24/18 Unknown 02/24/18 Unknown Labs: Laboratory Last Values WBC 9.3 K/mm3 (4.5-11.0) 02/24/18 Unknown RBC 3.62 M/mm3 (3.65-5.03) L 02/24/18 Unknown Hgb 6.7 gm/dl (10.1-14.3) L 02/24/18 Unknown Hct 21.4 % (30.3-42.9) L 02/24/18 Unknown MCV 59 fl (79-97) L 02/24/18 Unknown MCH 19 pg (28-32) L 02/24/18 Unknown MCHC 31 % (30-34) 02/24/18 Unknown RDW 25.5 % (13.2-15.2) H 02/24/18 Unknown Plt Count 193 K/mm3 (140-440) 02/24/18 Unknown Add Manual Diff Complete 02/21/18 08:12 Total Counted 100 02/21/18 08:12 Seg Neuts % (Manual) 81.0 % (40.0-70.0) H 02/21/18 08:12 Band Neutrophils % 0 % 02/21/18 08:12 Lymphocytes % (Manual) 8.0 % (13.4-35.0) L 02/21/18 08:12 Reactive Lymphs % (Man) 0 % 02/21/18 08:12 Monocytes % (Manual) 2.0 % (0.0-7.3) 02/21/18 08:12 Eosinophils % (Manual) 9.0 % (0.0-4.3) H 02/21/18 08:12 Basophils % (Manual) 0 % (0.0-1.8) 02/21/18 08:12 Metamyelocytes % 0 % 02/21/18 08:12 Myelocytes % 0 % 02/21/18 08:12 Promyelocytes % 0 % 02/21/18 08:12 Blast Cells % 0 % 02/21/18 08:12 Nucleated RBC % Not Reportable 02/21/18 08:12 Seg Neutrophils # Man 9.6 K/mm3 (1.8-7.7) H 02/21/18 08:12 Band Neutrophils # 0.0 K/mm3 02/21/18 08:12 Lymphocytes # (Manual) 1.0 K/mm3 (1.2-5.4) L 02/21/18 08:12 Abs React Lymphs (Man) 0.0 K/mm3 02/21/18 08:12 Monocytes # (Manual) 0.2 K/mm3 (0.0-0.8) 02/21/18 08:12 Eosinophils # (Manual) 1.1 K/mm3 (0.0-0.4) H 02/21/18 08:12 Basophils # (Manual) 0.0 K/mm3 (0.0-0.1) 02/21/18 08:12 Metamyelocytes # 0.0 K/mm3 02/21/18 08:12 Myelocytes # 0.0 K/mm3 02/21/18 08:12 Promyelocytes # 0.0 K/mm3 02/21/18 08:12 Blast Cells # 0.0 K/mm3 02/21/18 08:12 WBC Morphology Not Reportable 02/21/18 08:12 Hypersegmented Neuts Not Reportable 02/21/18 08:12 Hyposegmented Neuts Not Reportable 02/21/18 08:12 Hypogranular Neuts Not Reportable 02/21/18 08:12 Smudge Cells Not Reportable 02/21/18 08:12 Toxic Granulation Not Reportable 02/21/18 08:12 Toxic Vacuolation Not Reportable 02/21/18 08:12 Dohle Bodies Not Reportable 02/21/18 08:12 Pelger-Huet Anomaly Not Reportable 02/21/18 08:12 Jamari Rods Not Reportable 02/21/18 08:12 Platelet Estimate Consistent w auto 02/21/18 08:12 Clumped Platelets Not Reportable 02/21/18 08:12 Plt Clumps, EDTA Not Reportable 02/21/18 08:12 Large Platelets Not Reportable 02/21/18 08:12 Giant Platelets Not Reportable 02/21/18 08:12 Platelet Satelliting Not Reportable 02/21/18 08:12 Plt Morphology Comment Not Reportable 02/21/18 08:12 RBC Morphology Not Reportable 02/21/18 08:12 Dimorphic RBCs Not Reportable 02/21/18 08:12 Polychromasia Not Reportable 02/21/18 08:12 Hypochromasia 2+ 02/21/18 08:12 Poikilocytosis 1+ 02/21/18 08:12 Anisocytosis 2+ 02/21/18 08:12 Microcytosis 2+ 02/21/18 08:12 Macrocytosis Not Reportable 02/21/18 08:12 Spherocytes Not Reportable 02/21/18 08:12 Pappenheimer Bodies Not Reportable 02/21/18 08:12 Sickle Cells Not Reportable 02/21/18 08:12 Target Cells 1+ 02/21/18 08:12 Tear Drop Cells Not Reportable 02/21/18 08:12 Ovalocytes Not Reportable 02/21/18 08:12 Helmet Cells Not Reportable 02/21/18 08:12 [place] Bodies Not Reportable 02/21/18 08:12 [place] Rings Not Reportable 02/21/18 08:12 [place] Cells Not Reportable 02/21/18 08:12 Bite Cells Not Reportable 02/21/18 08:12 Crenated Cell Not Reportable 02/21/18 08:12 Elliptocytes Not Reportable 02/21/18 08:12 Acanthocytes (Spur) Not Reportable 02/21/18 08:12 Rouleaux Not Reportable 02/21/18 08:12 Hemoglobin C Crystals Not Reportable 02/21/18 08:12 Schistocytes Not Reportable 02/21/18 08:12 Malaria parasites Not Reportable 02/21/18 08:12 Joel Bodies Not Reportable 02/21/18 08:12 Hem Pathologist Commnt No 02/21/18 08:12 Sodium 139 mmol/L (137-145) D 02/24/18 Unknown Potassium 4.9 mmol/L (3.6-5.0) D 02/24/18 Unknown Chloride 109.8 mmol/L (98-107) H 02/24/18 Unknown Carbon Dioxide 18 mmol/L (22-30) L 02/24/18 Unknown Anion Gap 16 mmol/L 02/24/18 Unknown BUN 16 mg/dL (7-17) 02/24/18 Unknown Creatinine 0.4 mg/dL (0.7-1.2) L 02/24/18 Unknown Estimated GFR > 60 ml/min 02/24/18 Unknown BUN/Creatinine Ratio 40 % 02/24/18 Unknown Glucose 318 mg/dL (65-100) H 02/24/18 Unknown POC Glucose 129 (70-105) H 02/21/18 00:00 Lactic Acid 1.40 mmol/L (0.7-2.0) 02/19/18 21:10 Calcium 8.6 mg/dL (8.4-10.2) 02/24/18 Unknown Phosphorus 4.70 mg/dL (2.5-4.5) H D 02/24/18 Unknown Magnesium 2.10 mg/dL (1.7-2.3) 02/24/18 Unknown Total Bilirubin 0.50 mg/dL (0.1-1.2) 02/21/18 08:07 AST 33 units/L (5-40) 02/21/18 08:07 ALT 83 units/L (7-56) H 02/21/18 08:07 Alkaline Phosphatase 92 units/L (35-129) 02/21/18 08:07 Total Protein 7.0 g/dL (6.3-8.2) 02/21/18 08:07 Albumin 3.0 g/dL (3.9-5) L 02/21/18 08:07 Albumin/Globulin Ratio 0.8 % 02/21/18 08:07 Urine Color Red (Yellow) 02/19/18 Unknown Urine Turbidity Cloudy (Clear) 02/19/18 Unknown Urine pH 8.0 (5.0-7.0) H 02/19/18 Unknown Ur Specific [place] 1.013 (1.003-1.030) 02/19/18 Unknown Urine Protein 100 mg/dl mg/dL (Negative) 02/19/18 Unknown Urine Glucose (UA) Neg mg/dL (Negative) 02/19/18 Unknown Urine Ketones Neg mg/dL (Negative) 02/19/18 Unknown Urine Blood Lg (Negative) 02/19/18 Unknown Urine Nitrite Neg (Negative) 02/19/18 Unknown Urine Bilirubin Neg (Negative) 02/19/18 Unknown Urine Urobilinogen 2.0 mg/dL (<2.0) 02/19/18 Unknown Ur Leukocyte Esterase Lg (Negative) 02/19/18 Unknown Urine WBC (Auto) > 182.0 /HPF (0.0-6.0) H 02/19/18 Unknown Urine RBC (Auto) > 182.0 /HPF (0.0-6.0) 02/19/18 Unknown Urine Bacteria (Auto) 3+ /HPF (Negative) 02/19/18 Unknown Urine WBC Clumps 3+ /HPF 02/19/18 Unknown Nutrition/Malnutrition Assess - Dietary Evaluation Nutrition/Malnutrition Findings: Nutrition Notes Start: 02/21/18 14:12 Freq: Status: Active Protocol: Document 02/23/18 08:30 CP (Rec: 02/23/18 08:36 CP [id number]) Co-Sign 02/23/18 08:30 LP Nutrition Notes Need for Assessment generated from: MD Order Initial or Follow up Reassessment Current Diagnosis Sepsis Stroke Other Pertinent Diagnosis Pneumonia, UTI, acute encephalopathy, DVT, Current Diet TPN at 100 mL/hr Labs/Tests Na 150 K 3.2 Pertinent Medications Reviewed. Height 5 ft 5 in Weight 99.8 kg Ralph Body Weight (lbs) 125.0 BMI 36.6 Subjective/Other Information Day 3 TPN infusing at goal rate (100 ml/hr). Pt/ unresponsive d/t AMS. Percent of energy/protein needs met: 48%/100% Burn Absent Trauma Absent #1 Nutrition Diagnosis Inadequate oral intake Diagnosis Progress(for reassessment Continues documentation) Is patient on ventilator? No Is Patient Ambulatory and/or Out of Bed No REE-([facility]-confined to bed) 1946.256 Kcal/Kg value to use for calculation 15 Approximate Energy Requirements Using 1497 kcal/Kg Calculation Used for Recommendations Kcal/kg Additional Notes Protein:62-78g(0.8-1 g/kg AdjBW) AdjBW 78kg Fluids: 1mL/kcal Nutrition Intervention Nutrition Support: Day 3 PPN at 100 mls/hr, osmolality 616, 80 mEq K, 20 mmols phos, MVI, MTE, thiamine Kcal 720 Protein (gm) 78 Carbohydrates (gm) 120 Fat (gm) 0 Fluid (mL) 2,400 Fiber (gm) 0 Goal #1 PN meeting energy/protein needs as best as possible Anticipated Discharge Needs: Unable to determine at this time Follow-Up By: 02/24/18 Additional Comments Labs: BMP Phos Mg
--- NOTE | 2018-02-24 09:22 | Progress Note ---
Assessment and Plan Imaging 02/19/18 Chest xray: Hazy opacity left lung base concerning for atelectasis vis pneumonia 02/21/18 - CT Abdomen/Pelvis: Metal artifact from right Hip arthroplast and IVC Filter. Current PEG tube with distal tip in anterior mid stomach. Previous PEG tube tract slightly more lateral with adjacent fat stranding. This may reflect edema, inflammation, or infection. No fluid collection to suggest abscess. Cultures 02/19/2018 Blood; Staph.epidermis, 4 out of 4 bottles 02/23/2018 Blood: in progress A/P: 1. Sepsis on Admission: evidenced by leukocytosis, fever and tachycardia. Staph Epidermis, 4 out of 4 bottles. Source most likely PICC line, U/A consistent with UTI. 2. CoNS Bacteremia: source most likely [place] PICC line. Right PICC line needed for TPN to help heal gastric fistula. Will treat with vancomycim and order follow up cultures to ensure clearance. Once bacteremia is clear, we can get the existing PICC line removed and a new one can be placed on the contralateral arm. 3. Gastric Fistula: Peg tube malfunction 4. UTI: U/A consistent with UTI. Neurogenic bladder with chronic indwelling catheter. 5. 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 Plan: -f/u TTE -Continue Vancomycin, D2 -f/u blood cultures -Blood cultures ordered to ensure clearance, Once bacteremia is clear, we can get the existing PICC line removed and a new one can be placed on the contralateral arm. Dr. Ruiz will be rounding in the Hospital this weekend , . Clementina Swanson NP [facility] M: [phone] O:[phone] Subjective Date of service: 02/24/18 Principal diagnosis: malfunctioning PEG Interval history: Patient seen and examined, non verbal at baseline. No family at bedside. Nurse notes, labs and reports reviewed. Objective - Exam Narrative Exam: Constitutional: Somnolent, traumtic brain subdural hemorhage, nonverbal . No acute distress Head, Ears, Nose: Normocephalic, atraumatic. External ears, nose normal Eyes: Conjunctivae/corneas clear. No icterus. No ptosis. Neck: Supple, no meningeal signs Oral: unable to assess Cardiovascular: S1, S2 normal. Respiratory: Good air entry, clear to auscultation bilaterally GI: +Gastric fistula Musculoskeletal: No pedal edema, no cyanosis. Skin: No rash or abscess. Hem/Lymphatic: No palpable cervical or supraclavicular nodes. No lymphangitis Psych: Mood : somnolent Neurological: somnolent - Constitutional Vitals: Vital Signs Temp Pulse Resp BP Pulse Ox 98.0 F 94 H 20 112/57 96 02/24/18 07:43 02/24/18 07:43 02/24/18 07:43 02/24/18 07:43 02/24/18 07:43 Temperature -Last 24 Hours Temperature 98.0 F Temperature 98.9 F Temperature 98.4 F Temperature 98.4 F Temperature 97.3 F - Labs CBC & Chem 7: 02/24/18 Unknown 02/24/18 Unknown Labs: Abnormal lab results 02/23/18 02/24/18 02/24/18 Range/Units 15:34 Unknown Unknown RBC 3.62 L (3.65-5.03) M/mm3 Hgb 7.3 L 6.7 L (10.1-14.3) gm/dl Hct 24.1 L 21.4 L (30.3-42.9) % MCV 59 L (79-97) fl MCH 19 L (28-32) pg RDW 25.5 H (13.2-15.2) % Chloride 109.8 H (98-107) mmol/L Carbon Dioxide 18 L (22-30) mmol/L Creatinine 0.4 L (0.7-1.2) mg/dL Glucose 318 H (65-100) mg/dL Phosphorus 4.70 H D (2.5-4.5) mg/dL
[2018-02-24 09:37] LABS: BUN/Creatinine Ratio 43; Blood Urea Nitrogen 17 mg/dL (7-17); Calcium 8.6 mg/dL (8.4-10.2); Hemolysis Index 0
[2018-02-24] MEDS: PROTONIX IV SCH (09:50)
[2018-02-24] MEDS: COZAAR PO SCH (10:00)
[2018-02-24] MEDS: LOPRESSOR PO SCH (10:00)
[2018-02-24] MEDS ORDERED: NACL 0.9% 500 ML 500 ML IV NR (13:30)
[2018-02-24] MEDS ORDERED: TPN ADULT 2,400 ML IV SCH (20:00)
[2018-02-24] MEDS ORDERED: INTRALIPID 20% 250 ML IV SCH (20:00)
[2018-02-25] MEDS: LOPRESSOR PO SCH ×3 (01:19→22:26)
[2018-02-25] MEDS: VANCOMYCIN 1,500 MG in NACL 0.9% 500 ML 500 ML IV SCH ×2 (07:28→07:29)
[2018-02-25] MEDS ORDERED: VANCOMYCIN PHARMACY TO DOSE IV SCH (08:00)
[2018-02-25 08:25] LABS: Hemoglobin 7.8 gm/dl (10.1-14.3); Mean Corpuscular HGB Conc 31 % (30-34); Platelet Count 206 K/mm3 (140-440); Red Blood Count 4.12 M/mm3 (3.65-5.03)
[2018-02-25 08:35] LABS: BUN/Creatinine Ratio 30; Blood Urea Nitrogen 12 mg/dL (7-17); Calcium 8.4 mg/dL (8.4-10.2); Hemolysis Index 0
[2018-02-25 08:45] LABS: Mean Corpuscular Volume 61 fl (79-97); Red Cell Distribution Width 28.2 % (13.2-15.2)
[2018-02-25] MEDS: PROTONIX IV SCH (09:11)
--- NOTE | 2018-02-25 10:48 | Progress Note ---
Assessment and Plan - Patient Problems (1) Acquired gastric fistula Current Visit: Yes Status: Acute Plan to address problem: Pt stable. This is a chronically drainage tract from a previous PEG tube. She continues to drain a fair amount from the old PEG site. In looking at the CT again, I think that the problem is the old PEG tract is between most of the stomach body and the new PEG. Therefore, all the drainage is able to empty from the old PEG site before getting to the new PEG site. I think that our only option may be to surgically divide the old PEG tract. I will reach out to family and see how they want to proceed. Please call with questions. time=10min Subjective Date of service: 02/25/18 Patient Reports: Positive: other (patient continues to drain from old PEG site) Objective Vital Signs - 12hr 02/24/18 02/25/18 02/25/18 23:58 00:00 01:19 Temperature 97.8 F 97.7 F Pulse Rate 95 H 92 H Respiratory 18 18 Rate Blood Pressure 120/63 113/65 O2 Sat by Pulse 95 98 Oximetry 02/25/18 02/25/18 05:22 09:26 Temperature 98.3 F Pulse Rate 101 H Respiratory 16 Rate Blood Pressure 126/63 O2 Sat by Pulse 100 100 Oximetry - General physical appearance no distress, no pain - Respiratory normal expansion, normal respiratory effort - Abdomen soft, not tender, other (ostomy bag with greenish/brownish drainage. no output from PEG site. ) - Integumentary no rash, no growths, no abnormal pigmentation - Labs 02/25/18 Unknown 02/25/18 Unknown Diabetes panel 02/25/18 Range/Units Unknown Sodium 146 H (137-145) mmol/L Potassium 3.4 L (3.6-5.0) mmol/L Chloride 115.2 H (98-107) mmol/L Carbon Dioxide 20 L (22-30) mmol/L BUN 12 (7-17) mg/dL Creatinine 0.4 L (0.7-1.2) mg/dL Glucose 95 (65-100) mg/dL Calcium 8.4 (8.4-10.2) mg/dL Calcium panel 02/25/18 Range/Units Unknown Calcium 8.4 (8.4-10.2) mg/dL Phosphorus 2.60 (2.5-4.5) mg/dL Pituitary panel 02/25/18 Range/Units Unknown Sodium 146 H (137-145) mmol/L Potassium 3.4 L (3.6-5.0) mmol/L Chloride 115.2 H (98-107) mmol/L Carbon Dioxide 20 L (22-30) mmol/L BUN 12 (7-17) mg/dL Creatinine 0.4 L (0.7-1.2) mg/dL Glucose 95 (65-100) mg/dL Calcium 8.4 (8.4-10.2) mg/dL Adrenal panel 02/25/18 Range/Units Unknown Sodium 146 H (137-145) mmol/L Potassium 3.4 L (3.6-5.0) mmol/L Chloride 115.2 H (98-107) mmol/L Carbon Dioxide 20 L (22-30) mmol/L BUN 12 (7-17) mg/dL Creatinine 0.4 L (0.7-1.2) mg/dL Glucose 95 (65-100) mg/dL Calcium 8.4 (8.4-10.2) mg/dL
[2018-02-25] MEDS: COZAAR PO SCH (13:15)
--- NOTE | 2018-02-25 16:20 | Progress Note ---
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 In addition, there was evidence of UTI and possible afib with RVR. She was also found to have a malfunctioning PEG tube. pCXR Impression: Hazy opacity left lung base concerning for atelectasis verus pneumonia, remote granulomatous disease. -Acquired gastric fistula: appreciated GS input, PEG to LIS==>"This is a chronically drainage tract from a previous PEG tube. She continues to drain a f air amount from the old PEG site. In looking at the CT again, I think that the problem is the old PEG tract is between most of the stomach body and the new PEG. Therefore, all the drainage is able to empty from the old PEG site before getting to the new PEG site. I think that our only option may be to surgically divide the old PEG tract. I will reach out to family and see how they want to proceed" per Dr. Sawyer. -Sepsis secondary to urinary tract infection and possible pneumonia: Continue IV antibiotics, follow cultures -UTI (urinary tract infection): treat with abx, urine culture not sent. -Acute encephalopathy Secondary to sepsis and UTI: treat the infection -Possible LLL NH/HAP Pneumonia with MRSE (staph epidermis) bacteremia: continue abx, consulted ID -Hypernatremia: IV D5W for now -Hyperkalemia, treated now hypokalemia: replaced -PEG tube malfunction, old PEG site is draining, so anything you put in new PEG it goes thru old PEG site via a fistula: appreciate GI input, continue TPN, LIS to PEG to try and close the fistula - unlikely, Atrial fibrillation with RVR, Cardiology was consulted -DVT prophylaxis: Lovenox 40 mg subcutaneous daily -Drop in HCT: repeat h/h, s/p transfusion of 1 units prbc -MRSE (staph epidermis) bacteremia, most likely line infection per ID, awaiting finalization of repeat blood ctx to be negative to do another picc 02/25/18 I called and spoke with Antonio at [phone] @ [phone], he is okay with surgery to fix PEG site History Interval history: Patient was seen and examined. Follow-up on current diagnosis of fevers. Ove rnight uneventful. Imaging, nursing note, chart, labs and old chart reviewed. Hospitalist Physical - Physical exam Narrative exam: Gen: severe ill appearing, nonverbal, chronically debilitated, HEENT: NCAT, EOMI, PERRL, OP and mm dry Neck: supple, no adenopathy, no thyromegaly, no JVD CVS/Heart: Regular tachycardia normal S1S2, pulses present bilaterally Chest/Lungs: diminished bs bilateral Symmetrical chest expansion, good air entry bilaterally GI/Abdomen: PEG with bag over it, draining brown substance, ?bile vs fecal material, +bowel sounds, no guarding or rebound /Bladder: mobley in place Extermity/Skin: leg atrophic, foot drop bilaterally MSK: no FROM x 4 Neuro: CN 2-12 grossly intact, doesn't follow commands, Psych: unresponsive - Constitutional Vitals: Temp Pulse Resp BP Pulse Ox 98.3 F 101 H 16 126/63 100 02/25/18 05:22 02/25/18 13:15 02/25/18 05:22 02/25/18 13:15 02/25/18 09:26 General appearance: Present: no acute distress Results - Labs CBC & Chem 7: 02/25/18 Unknown 02/25/18 Unknown Labs: Laboratory Last Values WBC 10.0 K/mm3 (4.5-11.0) 02/25/18 Unknown RBC 4.12 M/mm3 (3.65-5.03) 02/25/18 Unknown Hgb 7.8 gm/dl (10.1-14.3) L 02/25/18 Unknown Hct 25.0 % (30.3-42.9) L 02/25/18 Unknown MCV 61 fl (79-97) L 02/25/18 Unknown MCH 19 pg (28-32) L 02/25/18 Unknown MCHC 31 % (30-34) 02/25/18 Unknown RDW 28.2 % (13.2-15.2) H 02/25/18 Unknown Plt Count 206 K/mm3 (140-440) 02/25/18 Unknown Add Manual Diff Complete 02/21/18 08:12 Total Counted 100 02/21/18 08:12 Seg Neuts % (Manual) 81.0 % (40.0-70.0) H 02/21/18 08:12 Band Neutrophils % 0 % 02/21/18 08:12 Lymphocytes % (Manual) 8.0 % (13.4-35.0) L 02/21/18 08:12 Reactive Lymphs % (Man) 0 % 02/21/18 08:12 Monocytes % (Manual) 2.0 % (0.0-7.3) 02/21/18 08:12 Eosinophils % (Manual) 9.0 % (0.0-4.3) H 02/21/18 08:12 Basophils % (Manual) 0 % (0.0-1.8) 02/21/18 08:12 Metamyelocytes % 0 % 02/21/18 08:12 Myelocytes % 0 % 02/21/18 08:12 Promyelocytes % 0 % 02/21/18 08:12 Blast Cells % 0 % 02/21/18 08:12 Nucleated RBC % Not Reportable 02/21/18 08:12 Seg Neutrophils # Man 9.6 K/mm3 (1.8-7.7) H 02/21/18 08:12 Band Neutrophils # 0.0 K/mm3 02/21/18 08:12 Lymphocytes # (Manual) 1.0 K/mm3 (1.2-5.4) L 02/21/18 08:12 Abs React Lymphs (Man) 0.0 K/mm3 02/21/18 08:12 Monocytes # (Manual) 0.2 K/mm3 (0.0-0.8) 02/21/18 08:12 Eosinophils # (Manual) 1.1 K/mm3 (0.0-0.4) H 02/21/18 08:12 Basophils # (Manual) 0.0 K/mm3 (0.0-0.1) 02/21/18 08:12 Metamyelocytes # 0.0 K/mm3 02/21/18 08:12 Myelocytes # 0.0 K/mm3 02/21/18 08:12 Promyelocytes # 0.0 K/mm3 02/21/18 08:12 Blast Cells # 0.0 K/mm3 02/21/18 08:12 WBC Morphology Not Reportable 02/21/18 08:12 Hypersegmented Neuts Not Reportable 02/21/18 08:12 Hyposegmented Neuts Not Reportable 02/21/18 08:12 Hypogranular Neuts Not Reportable 02/21/18 08:12 Smudge Cells Not Reportable 02/21/18 08:12 Toxic Granulation Not Reportable 02/21/18 08:12 Toxic Vacuolation Not Reportable 02/21/18 08:12 Dohle Bodies Not Reportable 02/21/18 08:12 Pelger-Huet Anomaly Not Reportable 02/21/18 08:12 Jamari Rods Not Reportable 02/21/18 08:12 Platelet Estimate Consistent w auto 02/21/18 08:12 Clumped Platelets Not Reportable 02/21/18 08:12 Plt Clumps, EDTA Not Reportable 02/21/18 08:12 Large Platelets Not Reportable 02/21/18 08:12 Giant Platelets Not Reportable 02/21/18 08:12 Platelet Satelliting Not Reportable 02/21/18 08:12 Plt Morphology Comment Not Reportable 02/21/18 08:12 RBC Morphology Not Reportable 02/21/18 08:12 Dimorphic RBCs Not Reportable 02/21/18 08:12 Polychromasia Not Reportable 02/21/18 08:12 Hypochromasia 2+ 02/21/18 08:12 Poikilocytosis 1+ 02/21/18 08:12 Anisocytosis 2+ 02/21/18 08:12 Microcytosis 2+ 02/21/18 08:12 Macrocytosis Not Reportable 02/21/18 08:12 Spherocytes Not Reportable 02/21/18 08:12 Pappenheimer Bodies Not Reportable 02/21/18 08:12 Sickle Cells Not Reportable 02/21/18 08:12 Target Cells 1+ 02/21/18 08:12 Tear Drop Cells Not Reportable 02/21/18 08:12 Ovalocytes Not Reportable 02/21/18 08:12 Helmet Cells Not Reportable 02/21/18 08:12 [place] Bodies Not Reportable 02/21/18 08:12 [place] Rings Not Reportable 02/21/18 08:12 [place] Cells Not Reportable 02/21/18 08:12 Bite Cells Not Reportable 02/21/18 08:12 Crenated Cell Not Reportable 02/21/18 08:12 Elliptocytes Not Reportable 02/21/18 08:12 Acanthocytes (Spur) Not Reportable 02/21/18 08:12 Rouleaux Not Reportable 02/21/18 08:12 Hemoglobin C Crystals Not Reportable 02/21/18 08:12 Schistocytes Not Reportable 02/21/18 08:12 Malaria parasites Not Reportable 02/21/18 08:12 Joel Bodies Not Reportable 02/21/18 08:12 Hem Pathologist Commnt No 02/21/18 08:12 Sodium 146 mmol/L (137-145) H 02/25/18 Unknown Potassium 3.4 mmol/L (3.6-5.0) L 02/25/18 Unknown Chloride 115.2 mmol/L (98-107) H 02/25/18 Unknown Carbon Dioxide 20 mmol/L (22-30) L 02/25/18 Unknown Anion Gap 14 mmol/L 02/25/18 Unknown BUN 12 mg/dL (7-17) 02/25/18 Unknown Creatinine 0.4 mg/dL (0.7-1.2) L 02/25/18 Unknown Estimated GFR > 60 ml/min 02/25/18 Unknown BUN/Creatinine Ratio 30 % 02/25/18 Unknown Glucose 95 mg/dL (65-100) 02/25/18 Unknown POC Glucose 129 (70-105) H 02/21/18 00:00 Lactic Acid 1.40 mmol/L (0.7-2.0) 02/19/18 21:10 Calcium 8.4 mg/dL (8.4-10.2) 02/25/18 Unknown Phosphorus 2.60 mg/dL (2.5-4.5) 02/25/18 Unknown Magnesium 2.00 mg/dL (1.7-2.3) 02/25/18 Unknown Total Bilirubin 0.50 mg/dL (0.1-1.2) 02/21/18 08:07 AST 33 units/L (5-40) 02/21/18 08:07 ALT 83 units/L (7-56) H 02/21/18 08:07 Alkaline Phosphatase 92 units/L (35-129) 02/21/18 08:07 Total Protein 7.0 g/dL (6.3-8.2) 02/21/18 08:07 Albumin 3.0 g/dL (3.9-5) L 02/21/18 08:07 Albumin/Globulin Ratio 0.8 % 02/21/18 08:07 Urine Color Red (Yellow) 02/19/18 Unknown Urine Turbidity Cloudy (Clear) 02/19/18 Unknown Urine pH 8.0 (5.0-7.0) H 02/19/18 Unknown Ur Specific [place] 1.013 (1.003-1.030) 02/19/18 Unknown Urine Protein 100 mg/dl mg/dL (Negative) 02/19/18 Unknown Urine Glucose (UA) Neg mg/dL (Negative) 02/19/18 Unknown Urine Ketones Neg mg/dL (Negative) 02/19/18 Unknown Urine Blood Lg (Negative) 02/19/18 Unknown Urine Nitrite Neg (Negative) 02/19/18 Unknown Urine Bilirubin Neg (Negative) 02/19/18 Unknown Urine Urobilinogen 2.0 mg/dL (<2.0) 02/19/18 Unknown Ur Leukocyte Esterase Lg (Negative) 02/19/18 Unknown Urine WBC (Auto) > 182.0 /HPF (0.0-6.0) H 02/19/18 Unknown Urine RBC (Auto) > 182.0 /HPF (0.0-6.0) 02/19/18 Unknown Urine Bacteria (Auto) 3+ /HPF (Negative) 02/19/18 Unknown Urine WBC Clumps 3+ /HPF 02/19/18 Unknown Vancomycin Trough 45.0 ug/mL (5.0-20.0) H 02/24/18 17:13 Blood Type B POSITIVE 02/24/18 14:40 Antibody Screen Negative 02/24/18 14:40 Crossmatch See Detail 02/24/18 14:40 Nutrition/Malnutrition Assess - Dietary Evaluation Nutrition/Malnutrition Findings: Nutrition Notes Start: 02/21/18 14:12 Freq: Status: Active Protocol: Document 02/24/18 08:37 TW (Rec: 02/24/18 08:39 TW [id number]) Co-Sign 02/24/18 08:37 LP Nutrition Notes Initial or Follow up Reassessment Current Diagnosis Sepsis Stroke Other Pertinent Diagnosis Pneumonia, UTI, acute encephalopathy, DVT, Current Diet TPN at 100 mL/hr Labs/Tests Na: 146 K: 3.3 Pertinent Medications Reviewed. Height 5 ft 5 in Weight 99.8 kg [place] Body Weight (lbs) 125.0 BMI 36.6 Subjective/Other Information Day 4 TPN. Pt. not in room 457 . Per RN, pt. getting transferred to room 377. Pt. not yet on 3rd floor. Percent of energy/protein needs met: 48%/100% Burn Absent Trauma Absent #1 Nutrition Diagnosis Inadequate oral intake Diagnosis Progress(for reassessment Continues documentation) Is patient on ventilator? No Is Patient Ambulatory and/or Out of Bed No REE-([facility]-confined to bed) 1946.256 Kcal/Kg value to use for calculation 15 Approximate Energy Requirements Using 1497 kcal/Kg Calculation Used for Recommendations Kcal/kg Additional Notes Protein:62-78g(0.8-1 g/kg AdjBW) AdjBW 78kg Fluids: 1mL/kcal Nutrition Intervention Nutrition Support: Day 4 PPN at 100 mls/hr, osmolality 624, K:100 mEq, MVI , Lipids Kcal 1,220 Protein (gm) 78 Carbohydrates (gm) 120 Fat (gm) 50 Fluid (mL) 2,650 Fiber (gm) 0 Goal #1 PN meeting energy/protein needs as best as possible Anticipated Discharge Needs: Unable to determine at this time Follow-Up By: 02/25/18 Additional Comments Labs: PENELOPE Mejia Mag
[2018-02-25] MEDS ORDERED: TPN ADULT 2,400 ML IV SCH (20:00)
[2018-02-26 06:49] LABS: Hematocrit 24.7 % (30.3-42.9); Hemoglobin 7.8 gm/dl (10.1-14.3); Mean Corpuscular HGB Conc 32 % (30-34); Platelet Count 225 K/mm3 (140-440)
[2018-02-26 06:51] LABS: Mean Corpuscular Volume 60 fl (79-97); Red Cell Distribution Width 28.6 % (13.2-15.2)
[2018-02-26 07:10] LABS: BUN/Creatinine Ratio 33; Blood Urea Nitrogen 10 mg/dL (7-17); Calcium 8.9 mg/dL (8.4-10.2); Hemolysis Index 0
--- NOTE | 2018-02-26 08:46 | Progress Note ---
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 In addition, there was evidence of UTI and possible afib with RVR. She was also found to have a malfunctioning PEG tube. pCXR Impression: Hazy opacity left lung base concerning for atelectasis verus pneumonia, remote granulomatous disease. -Acquired gastric fistula: appreciated GS input, PEG to LIS==>"This is a chronically drainage tract from a previous PEG tube. She continues to drain a f air amount from the old PEG site. In looking at the CT again, I think that the problem is the old PEG tract is between most of the stomach body and the new PEG. Therefore, all the drainage is able to empty from the old PEG site before getting to the new PEG site. I think that our only option may be to surgically divide the old PEG tract. I will reach out to family and see how they want to proceed" per Dr. Sawyer. -Sepsis secondary to urinary tract infection and possible pneumonia: Continue IV antibiotics, follow cultures -UTI (urinary tract infection): treat with abx, urine culture not sent. -Acute encephalopathy Secondary to sepsis and UTI: treat the infection -Possible LLL NH/HAP Pneumonia with MRSE (staph epidermis) bacteremia: continue abx, consulted ID -Hypernatremia: IV D5W for now -Hyperkalemia, treated now hypokalemia: replaced -PEG tube malfunction, old PEG site is draining, so anything you put in new PEG it goes thru old PEG site via a fistula: appreciate GI input, continue TPN, LIS to PEG to try and close the fistula - unlikely, Atrial fibrillation with RVR, Cardiology was consulted -DVT prophylaxis: Lovenox 40 mg subcutaneous daily -Drop in HCT: repeat h/h, s/p transfusion of 1 units prbc -MRSE (staph epidermis) bacteremia, most likely line infection per ID, awaiting finalization of repeat blood ctx to be negative to do another picc 02/25/18 I called and spoke with Antonio at [phone] @ [phone], he is okay with surgery to fix PEG site History Interval history: Patient was seen and examined. Follow-up on current diagnosis of fevers. Ove rnight uneventful. Imaging, nursing note, chart, labs and old chart reviewed. Hospitalist Physical - Physical exam Narrative exam: Gen: severe ill appearing, nonverbal, chronically debilitated, HEENT: NCAT, EOMI, PERRL, OP and mm dry Neck: supple, no adenopathy, no thyromegaly, no JVD CVS/Heart: Regular tachycardia normal S1S2, pulses present bilaterally Chest/Lungs: diminished bs bilateral Symmetrical chest expansion, good air entry bilaterally GI/Abdomen: PEG with bag over it, draining brown substance, ?bile vs fecal material, +bowel sounds, no guarding or rebound /Bladder: mobley in place Extermity/Skin: leg atrophic, foot drop bilaterally MSK: no FROM x 4 Neuro: CN 2-12 grossly intact, doesn't follow commands, Psych: unresponsive - Constitutional Vitals: Temp Pulse Resp BP Pulse Ox 98.7 F 116 H 20 120/85 98 02/26/18 04:55 02/26/18 04:52 02/26/18 04:55 02/26/18 04:52 02/26/18 04:52 General appearance: Present: no acute distress Results - Labs CBC & Chem 7: 02/26/18 06:10 02/26/18 06:10 Labs: Laboratory Last Values WBC 8.4 K/mm3 (4.5-11.0) 02/26/18 06:10 RBC 4.10 M/mm3 (3.65-5.03) 02/26/18 06:10 Hgb 7.8 gm/dl (10.1-14.3) L 02/26/18 06:10 Hct 24.7 % (30.3-42.9) L 02/26/18 06:10 MCV 60 fl (79-97) L 02/26/18 06:10 MCH 19 pg (28-32) L 02/26/18 06:10 MCHC 32 % (30-34) 02/26/18 06:10 RDW 28.6 % (13.2-15.2) H 02/26/18 06:10 Plt Count 225 K/mm3 (140-440) 02/26/18 06:10 Add Manual Diff Complete 02/21/18 08:12 Total Counted 100 02/21/18 08:12 Seg Neuts % (Manual) 81.0 % (40.0-70.0) H 02/21/18 08:12 Band Neutrophils % 0 % 02/21/18 08:12 Lymphocytes % (Manual) 8.0 % (13.4-35.0) L 02/21/18 08:12 Reactive Lymphs % (Man) 0 % 02/21/18 08:12 Monocytes % (Manual) 2.0 % (0.0-7.3) 02/21/18 08:12 Eosinophils % (Manual) 9.0 % (0.0-4.3) H 02/21/18 08:12 Basophils % (Manual) 0 % (0.0-1.8) 02/21/18 08:12 Metamyelocytes % 0 % 02/21/18 08:12 Myelocytes % 0 % 02/21/18 08:12 Promyelocytes % 0 % 02/21/18 08:12 Blast Cells % 0 % 02/21/18 08:12 Nucleated RBC % Not Reportable 02/21/18 08:12 Seg Neutrophils # Man 9.6 K/mm3 (1.8-7.7) H 02/21/18 08:12 Band Neutrophils # 0.0 K/mm3 02/21/18 08:12 Lymphocytes # (Manual) 1.0 K/mm3 (1.2-5.4) L 02/21/18 08:12 Abs React Lymphs (Man) 0.0 K/mm3 02/21/18 08:12 Monocytes # (Manual) 0.2 K/mm3 (0.0-0.8) 02/21/18 08:12 Eosinophils # (Manual) 1.1 K/mm3 (0.0-0.4) H 02/21/18 08:12 Basophils # (Manual) 0.0 K/mm3 (0.0-0.1) 02/21/18 08:12 Metamyelocytes # 0.0 K/mm3 02/21/18 08:12 Myelocytes # 0.0 K/mm3 02/21/18 08:12 Promyelocytes # 0.0 K/mm3 02/21/18 08:12 Blast Cells # 0.0 K/mm3 02/21/18 08:12 WBC Morphology Not Reportable 02/21/18 08:12 Hypersegmented Neuts Not Reportable 02/21/18 08:12 Hyposegmented Neuts Not Reportable 02/21/18 08:12 Hypogranular Neuts Not Reportable 02/21/18 08:12 Smudge Cells Not Reportable 02/21/18 08:12 Toxic Granulation Not Reportable 02/21/18 08:12 Toxic Vacuolation Not Reportable 02/21/18 08:12 Dohle Bodies Not Reportable 02/21/18 08:12 Pelger-Huet Anomaly Not Reportable 02/21/18 08:12 Jamari Rods Not Reportable 02/21/18 08:12 Platelet Estimate Consistent w auto 02/21/18 08:12 Clumped Platelets Not Reportable 02/21/18 08:12 Plt Clumps, EDTA Not Reportable 02/21/18 08:12 Large Platelets Not Reportable 02/21/18 08:12 Giant Platelets Not Reportable 02/21/18 08:12 Platelet Satelliting Not Reportable 02/21/18 08:12 Plt Morphology Comment Not Reportable 02/21/18 08:12 RBC Morphology Not Reportable 02/21/18 08:12 Dimorphic RBCs Not Reportable 02/21/18 08:12 Polychromasia Not Reportable 02/21/18 08:12 Hypochromasia 2+ 02/21/18 08:12 Poikilocytosis 1+ 02/21/18 08:12 Anisocytosis 2+ 02/21/18 08:12 Microcytosis 2+ 02/21/18 08:12 Macrocytosis Not Reportable 02/21/18 08:12 Spherocytes Not Reportable 02/21/18 08:12 Pappenheimer Bodies Not Reportable 02/21/18 08:12 Sickle Cells Not Reportable 02/21/18 08:12 Target Cells 1+ 02/21/18 08:12 Tear Drop Cells Not Reportable 02/21/18 08:12 Ovalocytes Not Reportable 02/21/18 08:12 Helmet Cells Not Reportable 02/21/18 08:12 [place] Bodies Not Reportable 02/21/18 08:12 [place] Rings Not Reportable 02/21/18 08:12 [place] Cells Not Reportable 02/21/18 08:12 Bite Cells Not Reportable 02/21/18 08:12 Crenated Cell Not Reportable 02/21/18 08:12 Elliptocytes Not Reportable 02/21/18 08:12 Acanthocytes (Spur) Not Reportable 02/21/18 08:12 Rouleaux Not Reportable 02/21/18 08:12 Hemoglobin C Crystals Not Reportable 02/21/18 08:12 Schistocytes Not Reportable 02/21/18 08:12 Malaria parasites Not Reportable 02/21/18 08:12 Joel Bodies Not Reportable 02/21/18 08:12 Hem Pathologist Commnt No 02/21/18 08:12 Sodium 145 mmol/L (137-145) 02/26/18 06:10 Potassium 3.8 mmol/L (3.6-5.0) 02/26/18 06:10 Chloride 111.4 mmol/L (98-107) H 02/26/18 06:10 Carbon Dioxide 22 mmol/L (22-30) 02/26/18 06:10 Anion Gap 15 mmol/L 02/26/18 06:10 BUN 10 mg/dL (7-17) 02/26/18 06:10 Creatinine 0.3 mg/dL (0.7-1.2) L 02/26/18 06:10 Estimated GFR > 60 ml/min 02/26/18 06:10 BUN/Creatinine Ratio 33 % 02/26/18 06:10 Glucose 99 mg/dL (65-100) 02/26/18 06:10 POC Glucose 98 (70-105) 02/26/18 07:43 Lactic Acid 1.40 mmol/L (0.7-2.0) 02/19/18 21:10 Calcium 8.9 mg/dL (8.4-10.2) 02/26/18 06:10 Phosphorus 2.60 mg/dL (2.5-4.5) 02/26/18 06:10 Magnesium 2.00 mg/dL (1.7-2.3) 02/26/18 06:10 Total Bilirubin 0.50 mg/dL (0.1-1.2) 02/21/18 08:07 AST 33 units/L (5-40) 02/21/18 08:07 ALT 83 units/L (7-56) H 02/21/18 08:07 Alkaline Phosphatase 92 units/L (35-129) 02/21/18 08:07 Total Protein 7.0 g/dL (6.3-8.2) 02/21/18 08:07 Albumin 3.0 g/dL (3.9-5) L 02/21/18 08:07 Albumin/Globulin Ratio 0.8 % 02/21/18 08:07 Urine Color Red (Yellow) 02/19/18 Unknown Urine Turbidity Cloudy (Clear) 02/19/18 Unknown Urine pH 8.0 (5.0-7.0) H 02/19/18 Unknown Ur Specific [place] 1.013 (1.003-1.030) 02/19/18 Unknown Urine Protein 100 mg/dl mg/dL (Negative) 02/19/18 Unknown Urine Glucose (UA) Neg mg/dL (Negative) 02/19/18 Unknown Urine Ketones Neg mg/dL (Negative) 02/19/18 Unknown Urine Blood Lg (Negative) 02/19/18 Unknown Urine Nitrite Neg (Negative) 02/19/18 Unknown Urine Bilirubin Neg (Negative) 02/19/18 Unknown Urine Urobilinogen 2.0 mg/dL (<2.0) 02/19/18 Unknown Ur Leukocyte Esterase Lg (Negative) 02/19/18 Unknown Urine WBC (Auto) > 182.0 /HPF (0.0-6.0) H 02/19/18 Unknown Urine RBC (Auto) > 182.0 /HPF (0.0-6.0) 02/19/18 Unknown Urine Bacteria (Auto) 3+ /HPF (Negative) 02/19/18 Unknown Urine WBC Clumps 3+ /HPF 02/19/18 Unknown Vancomycin Trough 45.0 ug/mL (5.0-20.0) H 02/24/18 17:13 Random Vancomycin 8.0 ug/mL (0-40.0) 02/26/18 06:10 Blood Type B POSITIVE 02/24/18 14:40 Antibody Screen Negative 02/24/18 14:40 Crossmatch See Detail 02/24/18 14:40 Nutrition/Malnutrition Assess - Dietary Evaluation Nutrition/Malnutrition Findings: Nutrition Notes Start: 02/21/18 14:12 Freq: Status: Active Protocol: Document 02/25/18 16:17 NHALL (Rec: 02/25/18 16:24 [id number]) Nutrition Notes Initial or Follow up Reassessment Current Diagnosis Sepsis Stroke Other Pertinent Diagnosis Pneumonia, UTI, acute encephalopathy, DVT, Current Diet TPN at 100 mL/hr Labs/Tests Na 146 K 3.4 Cl 115.2 CO2 - 20 Pertinent Medications Reviewed Height 5 ft 5 in Weight 104.4 kg [place] Body Weight (lbs) 125.0 BMI 38.2 Weight change and time frame Current wt obtained from bed scale Subjective/Other Information Day 5 PN. Percent of energy/protein needs met: 46% energy 100% pro Burn Absent Trauma Absent #1 Nutrition Diagnosis Inadequate oral intake Diagnosis Progress(for reassessment Continues documentation) Is patient on ventilator? No Is Patient Ambulatory and/or Out of Bed No REE-([facility]-confined to bed) 2000.396 Kcal/Kg value to use for calculation 15 Approximate Energy Requirements Using 1566 kcal/Kg Calculation Used for Recommendations Kcal/kg Additional Notes Pro needs 0.8-1g/kg adjBW: 64- 81g/day Fluid needs 1ml/kcal Nutrition Intervention Nutrition Support: Continue PN at 100ml/hr: MVI, 150mEq K. Osmolality: 645. Kcal 720 Protein (gm) 78 Carbohydrates (gm) 120 Fat (gm) 0 Fluid (mL) 2,400 Fiber (gm) 0 Goal #1 PN to meet energy/protein needs as best as possible Follow-Up By: 02/26/18 Additional Comments Labs in am: BMP, Mg, Phos
[2018-02-26] MEDS: PROTONIX IV SCH (09:13)
[2018-02-26] MEDS: LOPRESSOR PO SCH ×2 (09:45→22:00)
[2018-02-26] MEDS: COZAAR PO SCH (09:46)
[2018-02-26] MEDS: VANCOMYCIN 1,750 MG in NACL 0.9% 500 ML 500 ML IV SCH (10:55)
--- NOTE | 2018-02-26 11:27 | Event Note ---
Date: 02/26/18 Attempted to call . Left voice mail. I will try again tomorrow. Need to make a decision on how we proceed with the PEG tube problem.
[2018-02-26] MEDS ORDERED: TPN ADULT IV SCH (20:00)
[2018-02-27 05:25] LABS: Hematocrit 26.3 % (30.3-42.9); Hemoglobin 8.2 gm/dl (10.1-14.3); Mean Corpuscular HGB Conc 31 % (30-34); Platelet Count 234 K/mm3 (140-440); Red Blood Count 4.37 M/mm3 (3.65-5.03)
[2018-02-27 05:28] LABS: Mean Corpuscular Volume 60 fl (79-97); Red Cell Distribution Width 27.9 % (13.2-15.2)
[2018-02-27 05:49] LABS: BUN/Creatinine Ratio 33; Blood Urea Nitrogen 10 mg/dL (7-17); Hemolysis Index 4
--- NOTE | 2018-02-27 10:15 | Progress Note ---
Assessment and Plan Imaging 02/19/18 Chest xray: Hazy opacity left lung base concerning for atelectasis vis pneumonia 02/21/18 - CT Abdomen/Pelvis: Metal artifact from right Hip arthroplast and IVC Filter. Current PEG tube with distal tip in anterior mid stomach. Previous PEG tube tract slightly more lateral with adjacent fat stranding. This may reflect edema, inflammation, or infection. No fluid collection to suggest abscess. Cultures 02/19/2018 Blood; Staph.epidermis, 4 out of 4 bottles 02/23/2018 Blood: No growth to erick A/P: 1. Sepsis on Admission: evidenced by leukocytosis, fever and tachycardia. Staph Epidermis, 4 out of 4 bottles. Source most likely PICC line, U/A consistent with UTI. 2. CoNS Bacteremia: source most likely [place] PICC line. Right PICC line needed for TPN to help heal gastric fistula. Will treat with vancomycim and order follow up cultures to ensure clearance. Can d/c existing PICC and place a new one in the left arm. Order placed. 3. Gastric Fistula: Peg tube malfunction 4. UTI: U/A consistent with UTI. Neurogenic bladder with chronic indwelling catheter. 5. 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 Plan: -f/u TTE -Continue Vancomycin, until 03/01/18 -f/u blood cultures -d/c existing PICC, right arm -PICC line ordered left arm Clementina Swanson NP [facility] M: [id number] O:[phone] Subjective Date of service: 02/27/18 Principal diagnosis: malfunctioning PEG Interval history: Patient seen and examined, non verbal at baseline. No family at bedside. Nurse notes, labs and reports reviewed. Objective - Exam Narrative Exam: Constitutional: Somnolent, traumtic brain subdural hemorhage, nonverbal . No acute distress Head, Ears, Nose: Normocephalic, atraumatic. External ears, nose normal Eyes: Conjunctivae/corneas clear. No icterus. No ptosis. Neck: Supple, no meningeal signs Oral: unable to assess Cardiovascular: S1, S2 normal. Respiratory: Good air entry, clear to auscultation bilaterally GI: +Gastric fistula Musculoskeletal: No pedal edema, no cyanosis. Skin: No rash or abscess. Hem/Lymphatic: No palpable cervical or supraclavicular nodes. No lymphangitis Psych: Mood : somnolent Neurological: somnolent - Constitutional Vitals: Vital Signs Temp Pulse Resp BP Pulse Ox 97.8 F 111 H 18 126/81 100 02/27/18 04:24 02/27/18 04:24 02/27/18 04:24 02/27/18 04:24 02/27/18 04:24 Temperature -Last 24 Hours Temperature 97.8 F Temperature 98.3 F Temperature 98.5 F Temperature 98.4 F - Labs CBC & Chem 7: 02/27/18 05:10 02/27/18 05:10 Labs: Abnormal lab results 02/26/18 02/27/18 02/27/18 Range/Units 11:25 05:10 05:10 Hgb 8.2 L (10.1-14.3) gm/dl Hct 26.3 L (30.3-42.9) % MCV 60 L (79-97) fl MCH 19 L (28-32) pg RDW 27.9 H (13.2-15.2) % Creatinine 0.3 L (0.7-1.2) mg/dL POC Glucose 106 H (70-105)
[2018-02-27] MEDS: VANCOMYCIN 1,750 MG in NACL 0.9% 500 ML 500 ML IV SCH (11:16)
[2018-02-27] MEDS: COZAAR PO SCH (11:17)
[2018-02-27] MEDS: LOPRESSOR PO SCH ×2 (11:17→22:00)
[2018-02-27] MEDS: PROTONIX IV SCH (11:18)
--- NOTE | 2018-02-27 13:40 | Progress Note ---
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 In addition, there was evidence of UTI and possible afib with RVR. She was also found to have a malfunctioning PEG tube. pCXR Impression: Hazy opacity left lung base concerning for atelectasis verus pneumonia, remote granulomatous disease. -Acquired gastric fistula: appreciated GS input, PEG to LIS==>"This is a chronically drainage tract from a previous PEG tube. She continues to drain a f air amount from the old PEG site. In looking at the CT again, I think that the problem is the old PEG tract is between most of the stomach body and the new PEG. Therefore, all the drainage is able to empty from the old PEG site before getting to the new PEG site. I think that our only option may be to surgically divide the old PEG tract. I will reach out to family and see how they want to proceed" per Dr. Sawyer. -Sepsis secondary to urinary tract infection and possible pneumonia: Continue IV antibiotics, follow cultures -UTI (urinary tract infection): treat with abx, urine culture not sent. -Acute encephalopathy Secondary to sepsis and UTI: treat the infection -Possible LLL NH/HAP Pneumonia with MRSE (staph epidermis) bacteremia: continue abx, consulted ID -Hypernatremia: IV D5W for now -Hyperkalemia, treated now hypokalemia: replaced -PEG tube malfunction, old PEG site is draining, so anything you put in new PEG it goes thru old PEG site via a fistula: appreciate GI input, continue TPN, LIS to PEG to try and close the fistula - unlikely, Atrial fibrillation with RVR, Cardiology was consulted -DVT prophylaxis: Lovenox 40 mg subcutaneous daily -Drop in HCT: repeat h/h, s/p transfusion of 1 units prbc -MRSE (staph epidermis) bacteremia, most likely line infection per ID, awaiting finalization of repeat blood ctx to be negative to do another picc 02/27/18 I called and spoke with Antonio at [phone] @ [phone], he did speak with Dr. Sawyer and wants to proceed with surgery History Interval history: Patient was seen and examined. Follow-up on current diagnosis of fevers. Overnight uneventful. Imaging, nursing note, chart, labs and old chart reviewed . Hospitalist Physical - Physical exam Narrative exam: Gen: severe ill appearing, nonverbal, chronically debilitated, HEENT: NCAT, EOMI, PERRL, OP and mm dry Neck: supple, no adenopathy, no thyromegaly, no JVD CVS/Heart: Regular tachycardia normal S1S2, pulses present bilaterally Chest/Lungs: diminished bs bilateral Symmetrical chest expansion, good air entry bilaterally GI/Abdomen: PEG with bag over it, draining brown substance, ?bile vs fecal material, +bowel sounds, no guarding or rebound /Bladder: mobley in place Extermity/Skin: leg atrophic, foot drop bilaterally MSK: no FROM x 4 Neuro: CN 2-12 grossly intact, doesn't follow commands, Psych: unresponsive - Constitutional Vitals: Temp Pulse Resp BP Pulse Ox 97.8 F 111 H 18 126/81 99 02/27/18 04:24 02/27/18 04:24 02/27/18 04:24 02/27/18 04:24 02/27/18 10:00 General appearance: Present: no acute distress Results - Labs CBC & Chem 7: 02/27/18 05:10 02/27/18 05:10 Labs: Laboratory Last Values WBC 9.1 K/mm3 (4.5-11.0) 02/27/18 05:10 RBC 4.37 M/mm3 (3.65-5.03) 02/27/18 05:10 Hgb 8.2 gm/dl (10.1-14.3) L 02/27/18 05:10 Hct 26.3 % (30.3-42.9) L 02/27/18 05:10 MCV 60 fl (79-97) L 02/27/18 05:10 MCH 19 pg (28-32) L 02/27/18 05:10 MCHC 31 % (30-34) 02/27/18 05:10 RDW 27.9 % (13.2-15.2) H 02/27/18 05:10 Plt Count 234 K/mm3 (140-440) 02/27/18 05:10 Add Manual Diff Complete 02/21/18 08:12 Total Counted 100 02/21/18 08:12 Seg Neuts % (Manual) 81.0 % (40.0-70.0) H 02/21/18 08:12 Band Neutrophils % 0 % 02/21/18 08:12 Lymphocytes % (Manual) 8.0 % (13.4-35.0) L 02/21/18 08:12 Reactive Lymphs % (Man) 0 % 02/21/18 08:12 Monocytes % (Manual) 2.0 % (0.0-7.3) 02/21/18 08:12 Eosinophils % (Manual) 9.0 % (0.0-4.3) H 02/21/18 08:12 Basophils % (Manual) 0 % (0.0-1.8) 02/21/18 08:12 Metamyelocytes % 0 % 02/21/18 08:12 Myelocytes % 0 % 02/21/18 08:12 Promyelocytes % 0 % 02/21/18 08:12 Blast Cells % 0 % 02/21/18 08:12 Nucleated RBC % Not Reportable 02/21/18 08:12 Seg Neutrophils # Man 9.6 K/mm3 (1.8-7.7) H 02/21/18 08:12 Band Neutrophils # 0.0 K/mm3 02/21/18 08:12 Lymphocytes # (Manual) 1.0 K/mm3 (1.2-5.4) L 02/21/18 08:12 Abs React Lymphs (Man) 0.0 K/mm3 02/21/18 08:12 Monocytes # (Manual) 0.2 K/mm3 (0.0-0.8) 02/21/18 08:12 Eosinophils # (Manual) 1.1 K/mm3 (0.0-0.4) H 02/21/18 08:12 Basophils # (Manual) 0.0 K/mm3 (0.0-0.1) 02/21/18 08:12 Metamyelocytes # 0.0 K/mm3 02/21/18 08:12 Myelocytes # 0.0 K/mm3 02/21/18 08:12 Promyelocytes # 0.0 K/mm3 02/21/18 08:12 Blast Cells # 0.0 K/mm3 02/21/18 08:12 WBC Morphology Not Reportable 02/21/18 08:12 Hypersegmented Neuts Not Reportable 02/21/18 08:12 Hyposegmented Neuts Not Reportable 02/21/18 08:12 Hypogranular Neuts Not Reportable 02/21/18 08:12 Smudge Cells Not Reportable 02/21/18 08:12 Toxic Granulation Not Reportable 02/21/18 08:12 Toxic Vacuolation Not Reportable 02/21/18 08:12 Dohle Bodies Not Reportable 02/21/18 08:12 Pelger-Huet Anomaly Not Reportable 02/21/18 08:12 Jamari Rods Not Reportable 02/21/18 08:12 Platelet Estimate Consistent w auto 02/21/18 08:12 Clumped Platelets Not Reportable 02/21/18 08:12 Plt Clumps, EDTA Not Reportable 02/21/18 08:12 Large Platelets Not Reportable 02/21/18 08:12 Giant Platelets Not Reportable 02/21/18 08:12 Platelet Satelliting Not Reportable 02/21/18 08:12 Plt Morphology Comment Not Reportable 02/21/18 08:12 RBC Morphology Not Reportable 02/21/18 08:12 Dimorphic RBCs Not Reportable 02/21/18 08:12 Polychromasia Not Reportable 02/21/18 08:12 Hypochromasia 2+ 02/21/18 08:12 Poikilocytosis 1+ 02/21/18 08:12 Anisocytosis 2+ 02/21/18 08:12 Microcytosis 2+ 02/21/18 08:12 Macrocytosis Not Reportable 02/21/18 08:12 Spherocytes Not Reportable 02/21/18 08:12 Pappenheimer Bodies Not Reportable 02/21/18 08:12 Sickle Cells Not Reportable 02/21/18 08:12 Target Cells 1+ 02/21/18 08:12 Tear Drop Cells Not Reportable 02/21/18 08:12 Ovalocytes Not Reportable 02/21/18 08:12 Helmet Cells Not Reportable 02/21/18 08:12 [place] Bodies Not Reportable 02/21/18 08:12 [place] Rings Not Reportable 02/21/18 08:12 [place] Cells Not Reportable 02/21/18 08:12 Bite Cells Not Reportable 02/21/18 08:12 Crenated Cell Not Reportable 02/21/18 08:12 Elliptocytes Not Reportable 02/21/18 08:12 Acanthocytes (Spur) Not Reportable 02/21/18 08:12 Rouleaux Not Reportable 02/21/18 08:12 Hemoglobin C Crystals Not Reportable 02/21/18 08:12 Schistocytes Not Reportable 02/21/18 08:12 Malaria parasites Not Reportable 02/21/18 08:12 Joel Bodies Not Reportable 02/21/18 08:12 Hem Pathologist Commnt No 02/21/18 08:12 Sodium 141 mmol/L (137-145) 02/27/18 05:10 Potassium 4.6 mmol/L (3.6-5.0) D 02/27/18 05:10 Chloride 106.7 mmol/L (98-107) 02/27/18 05:10 Carbon Dioxide 24 mmol/L (22-30) 02/27/18 05:10 Anion Gap 15 mmol/L 02/27/18 05:10 BUN 10 mg/dL (7-17) 02/27/18 05:10 Creatinine 0.3 mg/dL (0.7-1.2) L 02/27/18 05:10 Estimated GFR > 60 ml/min 02/27/18 05:10 BUN/Creatinine Ratio 33 % 02/27/18 05:10 Glucose 96 mg/dL (65-100) 02/27/18 05:10 POC Glucose 101 (70-105) 02/27/18 11:30 Lactic Acid 1.40 mmol/L (0.7-2.0) 02/19/18 21:10 Calcium 9.0 mg/dL (8.4-10.2) 02/27/18 05:10 Phosphorus 3.10 mg/dL (2.5-4.5) 02/27/18 05:10 Magnesium 1.90 mg/dL (1.7-2.3) 02/27/18 05:10 Total Bilirubin 0.50 mg/dL (0.1-1.2) 02/21/18 08:07 AST 33 units/L (5-40) 02/21/18 08:07 ALT 83 units/L (7-56) H 02/21/18 08:07 Alkaline Phosphatase 92 units/L (35-129) 02/21/18 08:07 Total Protein 7.0 g/dL (6.3-8.2) 02/21/18 08:07 Albumin 3.0 g/dL (3.9-5) L 02/21/18 08:07 Albumin/Globulin Ratio 0.8 % 02/21/18 08:07 Urine Color Red (Yellow) 02/19/18 Unknown Urine Turbidity Cloudy (Clear) 02/19/18 Unknown Urine pH 8.0 (5.0-7.0) H 02/19/18 Unknown Ur Specific [place] 1.013 (1.003-1.030) 02/19/18 Unknown Urine Protein 100 mg/dl mg/dL (Negative) 02/19/18 Unknown Urine Glucose (UA) Neg mg/dL (Negative) 02/19/18 Unknown Urine Ketones Neg mg/dL (Negative) 02/19/18 Unknown Urine Blood Lg (Negative) 02/19/18 Unknown Urine Nitrite Neg (Negative) 02/19/18 Unknown Urine Bilirubin Neg (Negative) 02/19/18 Unknown Urine Urobilinogen 2.0 mg/dL (<2.0) 02/19/18 Unknown Ur Leukocyte Esterase Lg (Negative) 02/19/18 Unknown Urine WBC (Auto) > 182.0 /HPF (0.0-6.0) H 02/19/18 Unknown Urine RBC (Auto) > 182.0 /HPF (0.0-6.0) 02/19/18 Unknown Urine Bacteria (Auto) 3+ /HPF (Negative) 02/19/18 Unknown Urine WBC Clumps 3+ /HPF 02/19/18 Unknown Vancomycin Trough 45.0 ug/mL (5.0-20.0) H 02/24/18 17:13 Random Vancomycin 8.0 ug/mL (0-40.0) 02/26/18 06:10 Blood Type B POSITIVE 02/24/18 14:40 Antibody Screen Negative 02/24/18 14:40 Crossmatch See Detail 02/24/18 14:40 Nutrition/Malnutrition Assess - Dietary Evaluation Nutrition/Malnutrition Findings: Nutrition Notes Start: 02/21/18 14:12 Freq: Status: Active Protocol: Document 02/26/18 10:41 ELVIRA (Rec: 02/26/18 10:45 ELVIRA [id number] 1) Nutrition Notes Initial or Follow up Reassessment Current Diagnosis Sepsis Stroke Other Pertinent Diagnosis Pneumonia, UTI, acute encephalopathy, DVT, Current Diet TPN at 100 mL/hr Labs/Tests Cl 111.4 Pertinent Medications Reviewed Height 5 ft 5 in Weight 104.4 kg [place] Body Weight (lbs) 125.0 BMI 38.2 Subjective/Other Information Day 6 PPN. Percent of energy/protein needs met: 58% energy 100% pro Burn Absent Trauma Absent #1 Nutrition Diagnosis Inadequate oral intake Diagnosis Progress(for reassessment Continues documentation) Is patient on ventilator? No Is Patient Ambulatory and/or Out of Bed No REE-([facility]-confined to bed) 2000.396 Kcal/Kg value to use for calculation 15 Approximate Energy Requirements Using 1566 kcal/Kg Calculation Used for Recommendations Kcal/kg Additional Notes Pro needs 0.8-1g/kg adjBW: 64- 81g/day Fluid needs 1ml/kcal Nutrition Intervention Nutrition Support: Decrease PN rate to 83.33ml/hr : MVI, 3.9% amino acids, 8.8% dextrose. Osmolality: 910. Kcal 907 Protein (gm) 78 Carbohydrates (gm) 175 Fat (gm) 0 Fluid (mL) 2,000 Fiber (gm) 0 Goal #1 PN to meet energy/protein needs as best as possible Anticipated Discharge Needs: Unable to determine at this time Follow-Up By: 02/27/18 Additional Comments Labs in am: BMP, Mg, Phos
--- NOTE | 2018-02-27 15:57 | Event Note ---
Date: 02/27/18 Spoke with today. I explained my recommendations and my rationale for surgery. He was in agreement. Consent was obtained for diagnostic laparoscopy and division of gastric cutaneous fistula. Dr. Yeung was updated.
--- NOTE | 2018-02-27 16:35 | Anesthesia Consultation ---
Anesthesia Consult and Med Hx Date of service: 02/28/18 - Pre-Operative Health Status ASA Pre-Surgery Classification: ASA4 Proposed Anesthetic Plan: General - Pre-Anesthesia Comment Pre-Anesthesia Comments: Pt is for laparoscopy and repair of gastrocutaneous fistula. She is S/P traumatic subdural hematoma and was admitted from [place] due to UTI/ Sepsis/ Dehydration. She has CXR suspicious for atelactasis vs pneumonia. Phone consent for surgery was obtained from her Antonio Sanchez @ [phone]. - Pulmonary Hx Smoking: No Hx Asthma: No COPD: No Hx Pneumonia: No - Cardiovascular System Hx Hypertension: Yes Hx Heart Attack/AMI: No (unknown) - Endocrine Hx End Stage Renal Disease: No - Hematic Hx Anemia: Yes (Hgb 8.2) - Additional Comments Anesthesia Medical History Comments: Unable to evaluate airway due to patients chronic vegetative state. She was evaluated by cardiology for suspected A Fib but this was ruled out. Hypernatremia seen on admission has corrected.
[2018-02-27] MEDS ORDERED: INTRALIPID 20% 250 ML IV SCH (20:00)
[2018-02-27] MEDS ORDERED: TPN ADULT 1,999.92 ML IV SCH (20:00)
[2018-02-28 07:34] LABS: Alanine Aminotransferase 33 units/L (7-56); BUN/Creatinine Ratio 33; Blood Urea Nitrogen 10 mg/dL (7-17); Calcium 9.1 mg/dL (8.4-10.2); Hemolysis Index 0
--- NOTE | 2018-02-28 09:16 | Progress Note ---
Assessment and Plan Imaging 02/19/18 Chest xray: Hazy opacity left lung base concerning for atelectasis vis pneumonia 02/21/18 - CT Abdomen/Pelvis: Metal artifact from right Hip arthroplast and IVC Filter. Current PEG tube with distal tip in anterior mid stomach. Previous PEG tube tract slightly more lateral with adjacent fat stranding. This may reflect edema, inflammation, or infection. No fluid collection to suggest abscess. Cultures 02/19/2018 Blood; Staph.epidermis, 4 out of 4 bottles 02/23/2018 Blood: No growth thus far A/P: 1. Sepsis on Admission: evidenced by leukocytosis, fever and tachycardia. Staph Epidermis, 4 out of 4 bottles. Source most likely PICC line, U/A consistent with UTI. 2. CoNS Bacteremia: source most likely [place] PICC line. Right PICC line needed for TPN to help heal gastric fistula. Will treat with vancomycim and order follow up cultures to ensure clearance. Can d/c existing PICC and place a new one in the left arm. Order placed. 3. Gastric Fistula: Peg tube malfunction- s/p division of gastric cutaneous fistula 02/27/18 4. UTI: U/A consistent with UTI. Neurogenic bladder with chronic indwelling catheter. 5. 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 Plan: -Continue Vancomycin, until 03/01/18 -f/u blood cultures -d/c existing PICC, right arm -PICC line ordered left arm Clementina Swanson NP [facility] M: [id number] O:[phone] Subjective Date of service: 02/28/18 Principal diagnosis: malfunctioning PEG Interval history: Patient seen and examined, non verbal at baseline. No family at bedside. Nurse notes, labs and reports reviewed. Patient on the way to surgery. Objective - Exam Narrative Exam: Constitutional: Somnolent, traumtic brain subdural hemorhage, nonverbal . No acute distress Head, Ears, Nose: Normocephalic, atraumatic. External ears, nose normal Eyes: Conjunctivae/corneas clear. No icterus. No ptosis. Neck: Supple, no meningeal signs Oral: unable to assess Cardiovascular: S1, S2 normal. Respiratory: Good air entry, clear to auscultation bilaterally GI: +Gastric fistula Musculoskeletal: No pedal edema, no cyanosis. Skin: No rash or abscess. Hem/Lymphatic: No palpable cervical or supraclavicular nodes. No lymphangitis Psych: Mood : somnolent Neurological: somnolent - Constitutional Vitals: Vital Signs Temp Pulse Resp BP Pulse Ox 99.2 F 119 H 20 150/80 99 02/28/18 05:10 02/28/18 05:10 02/28/18 05:10 02/28/18 05:10 02/28/18 08:35 Temperature -Last 24 Hours Temperature 99.2 F Temperature 99.3 F Temperature 98.3 F Temperature 98.7 F Temperature 99.6 F - Labs CBC & Chem 7: 02/27/18 05:10 02/28/18 05:45 Labs: Abnormal lab results 02/28/18 02/28/18 Range/Units 00:00 05:45 Creatinine 0.3 L (0.7-1.2) mg/dL Glucose 114 H (65-100) mg/dL POC Glucose 118 H (70-105) Albumin 3.0 L (3.9-5) g/dL
[2018-02-28] MEDS: COZAAR PO SCH (10:00)
[2018-02-28] MEDS ORDERED: ZEMURON IV ONE ×3 (10:49→14:03)
[2018-02-28] MEDS ORDERED: XYLOCAINE MPF 2% ONE (10:49)
[2018-02-28] MEDS ORDERED: DIPRIVAN 10 MG/ML IV ONE (10:50)
[2018-02-28] MEDS ORDERED: SUBLIMAZE ONE (10:50)
[2018-02-28] MEDS: PROTONIX IV SCH (11:19)
[2018-02-28] MEDS: LOPRESSOR PO SCH (11:19)
[2018-02-28] MEDS: VANCOMYCIN 1,750 MG in NACL 0.9% 500 ML 500 ML IV SCH (11:19)
--- NOTE | 2018-02-28 11:31 | Progress Note ---
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 In addition, there was evidence of UTI and possible afib with RVR. She was also found to have a malfunctioning PEG tube. pCXR Impression: Hazy opacity left lung base concerning for atelectasis verus pneumonia, remote granulomatous disease. -Acquired gastric fistula: appreciated GS input, PEG to LIS==>"This is a chronically drainage tract from a previous PEG tube. She continues to drain a f air amount from the old PEG site. In looking at the CT again, I think that the problem is the old PEG tract is between most of the stomach body and the new PEG. Therefore, all the drainage is able to empty from the old PEG site before getting to the new PEG site. I think that our only option may be to surgically divide the old PEG tract. I will reach out to family and see how they want to proceed" per Dr. Sawyer. -Sepsis secondary to urinary tract infection and possible pneumonia: Continue IV antibiotics, follow cultures -UTI (urinary tract infection): treat with abx, urine culture not sent. -Acute encephalopathy Secondary to sepsis and UTI: treat the infection -Possible LLL NH/HAP Pneumonia with MRSE (staph epidermis) bacteremia: continue abx, consulted ID -Hypernatremia: IV D5W for now -Hyperkalemia, treated now hypokalemia: replaced -PEG tube malfunction, old PEG site is draining, so anything you put in new PEG it goes thru old PEG site via a fistula: appreciate GI input, continue TPN, LIS to PEG to try and close the fistula - unlikely, Atrial fibrillation with RVR, Cardiology was consulted -DVT prophylaxis: Lovenox 40 mg subcutaneous daily -Drop in HCT: repeat h/h, s/p transfusion of 1 units prbc -MRSE (staph epidermis) bacteremia, most likely line infection per ID, awaiting finalization of repeat blood ctx to be negative to do another picc 02/27/18 I called and spoke with Antonio at [phone] @ 2320, he did speak with Dr. Sawyer and wants to proceed with surgery History Interval history: Patient was seen and examined. Follow-up on current diagnosis of fevers. Overnight uneventful. Imaging, nursing note, chart, labs and old chart reviewed . Hospitalist Physical - Physical exam Narrative exam: Gen: severe ill appearing, nonverbal, chronically debilitated, HEENT: NCAT, EOMI, PERRL, OP and mm dry Neck: supple, no adenopathy, no thyromegaly, no JVD CVS/Heart: Regular tachycardia normal S1S2, pulses present bilaterally Chest/Lungs: diminished bs bilateral Symmetrical chest expansion, good air entry bilaterally GI/Abdomen: PEG with bag over it, draining brown substance, ?bile vs fecal material, +bowel sounds, no guarding or rebound /Bladder: mobley in place Extermity/Skin: leg atrophic, foot drop bilaterally MSK: no FROM x 4 Neuro: CN 2-12 grossly intact, doesn't follow commands, Psych: unresponsive - Constitutional Vitals: Temp Pulse Resp BP Pulse Ox 99.2 F 110 H 20 150/80 99 02/28/18 05:10 02/28/18 11:19 02/28/18 05:10 02/28/18 05:10 02/28/18 08:35 General appearance: Present: no acute distress Results - Labs CBC & Chem 7: 02/27/18 05:10 02/28/18 05:45 Labs: Laboratory Last Values WBC 9.1 K/mm3 (4.5-11.0) 02/27/18 05:10 RBC 4.37 M/mm3 (3.65-5.03) 02/27/18 05:10 Hgb 8.2 gm/dl (10.1-14.3) L 02/27/18 05:10 Hct 26.3 % (30.3-42.9) L 02/27/18 05:10 MCV 60 fl (79-97) L 02/27/18 05:10 MCH 19 pg (28-32) L 02/27/18 05:10 MCHC 31 % (30-34) 02/27/18 05:10 RDW 27.9 % (13.2-15.2) H 02/27/18 05:10 Plt Count 234 K/mm3 (140-440) 02/27/18 05:10 Add Manual Diff Complete 02/21/18 08:12 Total Counted 100 02/21/18 08:12 Seg Neuts % (Manual) 81.0 % (40.0-70.0) H 02/21/18 08:12 Band Neutrophils % 0 % 02/21/18 08:12 Lymphocytes % (Manual) 8.0 % (13.4-35.0) L 02/21/18 08:12 Reactive Lymphs % (Man) 0 % 02/21/18 08:12 Monocytes % (Manual) 2.0 % (0.0-7.3) 02/21/18 08:12 Eosinophils % (Manual) 9.0 % (0.0-4.3) H 02/21/18 08:12 Basophils % (Manual) 0 % (0.0-1.8) 02/21/18 08:12 Metamyelocytes % 0 % 02/21/18 08:12 Myelocytes % 0 % 02/21/18 08:12 Promyelocytes % 0 % 02/21/18 08:12 Blast Cells % 0 % 02/21/18 08:12 Nucleated RBC % Not Reportable 02/21/18 08:12 Seg Neutrophils # Man 9.6 K/mm3 (1.8-7.7) H 02/21/18 08:12 Band Neutrophils # 0.0 K/mm3 02/21/18 08:12 Lymphocytes # (Manual) 1.0 K/mm3 (1.2-5.4) L 02/21/18 08:12 Abs React Lymphs (Man) 0.0 K/mm3 02/21/18 08:12 Monocytes # (Manual) 0.2 K/mm3 (0.0-0.8) 02/21/18 08:12 Eosinophils # (Manual) 1.1 K/mm3 (0.0-0.4) H 02/21/18 08:12 Basophils # (Manual) 0.0 K/mm3 (0.0-0.1) 02/21/18 08:12 Metamyelocytes # 0.0 K/mm3 02/21/18 08:12 Myelocytes # 0.0 K/mm3 02/21/18 08:12 Promyelocytes # 0.0 K/mm3 02/21/18 08:12 Blast Cells # 0.0 K/mm3 02/21/18 08:12 WBC Morphology Not Reportable 02/21/18 08:12 Hypersegmented Neuts Not Reportable 02/21/18 08:12 Hyposegmented Neuts Not Reportable 02/21/18 08:12 Hypogranular Neuts Not Reportable 02/21/18 08:12 Smudge Cells Not Reportable 02/21/18 08:12 Toxic Granulation Not Reportable 02/21/18 08:12 Toxic Vacuolation Not Reportable 02/21/18 08:12 Dohle Bodies Not Reportable 02/21/18 08:12 Pelger-Huet Anomaly Not Reportable 02/21/18 08:12 Jamari Rods Not Reportable 02/21/18 08:12 Platelet Estimate Consistent w auto 02/21/18 08:12 Clumped Platelets Not Reportable 02/21/18 08:12 Plt Clumps, EDTA Not Reportable 02/21/18 08:12 Large Platelets Not Reportable 02/21/18 08:12 Giant Platelets Not Reportable 02/21/18 08:12 Platelet Satelliting Not Reportable 02/21/18 08:12 Plt Morphology Comment Not Reportable 02/21/18 08:12 RBC Morphology Not Reportable 02/21/18 08:12 Dimorphic RBCs Not Reportable 02/21/18 08:12 Polychromasia Not Reportable 02/21/18 08:12 Hypochromasia 2+ 02/21/18 08:12 Poikilocytosis 1+ 02/21/18 08:12 Anisocytosis 2+ 02/21/18 08:12 Microcytosis 2+ 02/21/18 08:12 Macrocytosis Not Reportable 02/21/18 08:12 Spherocytes Not Reportable 02/21/18 08:12 Pappenheimer Bodies Not Reportable 02/21/18 08:12 Sickle Cells Not Reportable 02/21/18 08:12 Target Cells 1+ 02/21/18 08:12 Tear Drop Cells Not Reportable 02/21/18 08:12 Ovalocytes Not Reportable 02/21/18 08:12 Helmet Cells Not Reportable 02/21/18 08:12 [place] Bodies Not Reportable 02/21/18 08:12 [place] Rings Not Reportable 02/21/18 08:12 [place] Cells Not Reportable 02/21/18 08:12 Bite Cells Not Reportable 02/21/18 08:12 Crenated Cell Not Reportable 02/21/18 08:12 Elliptocytes Not Reportable 02/21/18 08:12 Acanthocytes (Spur) Not Reportable 02/21/18 08:12 Rouleaux Not Reportable 02/21/18 08:12 Hemoglobin C Crystals Not Reportable 02/21/18 08:12 Schistocytes Not Reportable 02/21/18 08:12 Malaria parasites Not Reportable 02/21/18 08:12 Joel Bodies Not Reportable 02/21/18 08:12 Hem Pathologist Commnt No 02/21/18 08:12 Sodium 139 mmol/L (137-145) 02/28/18 05:45 Potassium 4.5 mmol/L (3.6-5.0) 02/28/18 05:45 Chloride 103.8 mmol/L (98-107) 02/28/18 05:45 Carbon Dioxide 24 mmol/L (22-30) 02/28/18 05:45 Anion Gap 16 mmol/L 02/28/18 05:45 BUN 10 mg/dL (7-17) 02/28/18 05:45 Creatinine 0.3 mg/dL (0.7-1.2) L 02/28/18 05:45 Estimated GFR > 60 ml/min 02/28/18 05:45 BUN/Creatinine Ratio 33 % 02/28/18 05:45 Glucose 114 mg/dL (65-100) H 02/28/18 05:45 POC Glucose 102 (70-105) 02/28/18 05:08 Lactic Acid 1.40 mmol/L (0.7-2.0) 02/19/18 21:10 Calcium 9.1 mg/dL (8.4-10.2) 02/28/18 05:45 Phosphorus 3.70 mg/dL (2.5-4.5) 02/28/18 05:45 Magnesium 1.80 mg/dL (1.7-2.3) 02/28/18 05:45 Total Bilirubin 0.40 mg/dL (0.1-1.2) 02/28/18 05:45 AST 28 units/L (5-40) 02/28/18 05:45 ALT 33 units/L (7-56) 02/28/18 05:45 Alkaline Phosphatase 82 units/L (35-129) 02/28/18 05:45 Total Protein 7.3 g/dL (6.3-8.2) 02/28/18 05:45 Albumin 3.0 g/dL (3.9-5) L 02/28/18 05:45 Albumin/Globulin Ratio 0.7 % 02/28/18 05:45 Urine Color Red (Yellow) 02/19/18 Unknown Urine Turbidity Cloudy (Clear) 02/19/18 Unknown Urine pH 8.0 (5.0-7.0) H 02/19/18 Unknown Ur Specific [place] 1.013 (1.003-1.030) 02/19/18 Unknown Urine Protein 100 mg/dl mg/dL (Negative) 02/19/18 Unknown Urine Glucose (UA) Neg mg/dL (Negative) 02/19/18 Unknown Urine Ketones Neg mg/dL (Negative) 02/19/18 Unknown Urine Blood Lg (Negative) 02/19/18 Unknown Urine Nitrite Neg (Negative) 02/19/18 Unknown Urine Bilirubin Neg (Negative) 02/19/18 Unknown Urine Urobilinogen 2.0 mg/dL (<2.0) 02/19/18 Unknown Ur Leukocyte Esterase Lg (Negative) 02/19/18 Unknown Urine WBC (Auto) > 182.0 /HPF (0.0-6.0) H 02/19/18 Unknown Urine RBC (Auto) > 182.0 /HPF (0.0-6.0) 02/19/18 Unknown Urine Bacteria (Auto) 3+ /HPF (Negative) 02/19/18 Unknown Urine WBC Clumps 3+ /HPF 02/19/18 Unknown Vancomycin Trough 45.0 ug/mL (5.0-20.0) H 02/24/18 17:13 Random Vancomycin 8.0 ug/mL (0-40.0) 02/26/18 06:10 Blood Type B POSITIVE 02/28/18 09:58 Antibody Screen Negative 02/28/18 09:58 Crossmatch See Detail 02/24/18 14:40 Nutrition/Malnutrition Assess - Dietary Evaluation Nutrition/Malnutrition Findings: Nutrition Notes Start: 02/21/18 14:12 Freq: Status: Active Protocol: Document 02/28/18 11:14 TW (Rec: 02/28/18 11:17 TW [id number]) Co-Sign 02/28/18 11:14 LP Nutrition Notes Initial or Follow up Reassessment Current Diagnosis Sepsis Stroke Other Pertinent Diagnosis Pneumonia, UTI, acute encephalopathy, DVT, Current Diet TPN at 83.33mL/hr Labs/Tests Reviewed Pertinent Medications Reviewed Height 5 ft 5 in Weight 104.5 kg [place] Body Weight (lbs) 125.0 BMI 38.3 Subjective/Other Information Day 8 CPN. Burn Absent Trauma Absent #1 Nutrition Diagnosis Inadequate oral intake Diagnosis Progress(for reassessment Continues documentation) Is patient on ventilator? No Is Patient Ambulatory and/or Out of Bed No REE-([facility]-confined to bed) 2002.596 Kcal/Kg value to use for calculation 15 Approximate Energy Requirements Using 1568 kcal/Kg Calculation Used for Recommendations Kcal/kg Additional Notes Pro needs 0.8-1g/kg adjBW: 64- 81g/day Fluid needs 1ml/kcal Nutrition Intervention Nutrition Support: Continue CPN at 83.33mL/hr: Goal #1 PN to meet energy/protein needs as best as possible Anticipated Discharge Needs: Unable to determine at this time Follow-Up By: 03/01/18 Additional Comments Labs in AM: BMP, Mg, Phos
[2018-02-28] MEDS ORDERED: NACL 0.9% 1000 ML 1,000 ML IV SCH (12:23)
[2018-02-28] MEDS ORDERED: MARCAINE 0.25% INFILTRATI ONE ×2 (13:20→14:32)
[2018-02-28] MEDS ORDERED: XYLOCAINE 1% 20 mL ONE (13:20)
[2018-02-28] MEDS ORDERED: NEO SYNEPHRINE/NS Syringe(OR USE) IV ONE (14:09)
[2018-02-28] MEDS ORDERED: ROBINUL ONE (14:20)
[2018-02-28] MEDS ORDERED: BLOXIVERZ ONE (14:20)
[2018-02-28] MEDS ORDERED: XYLOCAINE 1% 20 mL INFILTRATI ONE (14:33)
[2018-02-28] MEDS ORDERED: NACL 0.9% IR ONE (14:34)
--- NOTE | 2018-02-28 14:54 | Post Operative Note ---
Pre-op diagnosis: gastrocutaneous fistula Post-op diagnosis: same Findings: distinct tract of stomach up to abdominal wall. It was separate from current PEG tube Procedure: Dx Lap Lap division of gastrocutaneous fistula. Anesthesia: DEEPTIA Surgeon: ZAHIRA PIZARRO Product Management Consultant: TARUN BOWIE Estimated blood loss: minimal Pathology: list (portion of gastrocutaneous fistula) Specimen disposition: to lab Condition: stable Disposition: PACU
[2018-02-28] MEDS ORDERED: ZOFRAN ONE (14:55)
--- NOTE | 2018-02-28 15:59 | Post Anesthesia Evaluation ---
- Post Anesthesia Evaluation Patient Participated: No (returned to baseline mentation; alert but non- communicative) Airway Patent: Yes Stable Respiratory Function: Yes Nausea/Vomiting: No Temp > 96.8F: Yes Pain Manageable: Yes Adequeate Hydration: Yes Anesthesia Complications: No
--- NOTE | 2018-02-28 17:45 | Operative Report ---
PREOPERATIVE DIAGNOSIS: Gastrocutaneous fistula. POSTOPERATIVE DIAGNOSIS: Gastrocutaneous fistula. PROCEDURE: 1. Diagnostic laparoscopy. 2. Laparoscopic closure of gastrocutaneous fistula. 3. Debridement of remaining fistula tract. ATTENDING SURGEON: Brian Sawyer MD DEPUTY CHIEF COUNSEL: Dr. Maya. ANESTHESIA: General. ESTIMATED BLOOD LOSS: Minimal. FLUIDS: 400 mL. FINDINGS: Two distinct portions of the stomach that were adhered to the anterior abdominal wall. The right side was clearly the PEG tube. We checked with manipulation of the PEG tube. The left side was the fistula. No other abnormalities were identified. SPECIMEN: Portion of gastrocutaneous fistula. DRAINS: None. COMPLICATIONS: None. DISPOSITION: Stable, transport to Recovery. INDICATIONS: This is a 52-year-old female, who has had chronic drainage from an old PEG tube site. Conservative care was initiated; however, she continued to have drainage. Based on her anatomy and the location of the PEG tube, it appeared as though most of the stomach was to the left of the fistula and that was the path of least resistance for drainage. Therefore, we felt that a surgical division was necessary. Procedure, risks, benefits were explained to . Risks included but are not limited to infection, bleeding, pain, injury to surrounding structures, possible need for further procedures in the future. understood and consented. OPERATIVE PROCEDURE: The patient was brought to the operating room and placed on the table in supine position. After adequate general anesthesia was established, the patient was prepped and draped in the usual sterile fashion. All pressure points were padded. After time-out was done, I began by placing a Veress needle through the umbilicus and was able to insufflate without difficulty. Then, using the Optiview technique, I placed a 5 mm port through that same location. We entered the peritoneal cavity safely. There was no injury to the underlying structures. We then proceeded to examine the area of the stomach. The patient was placed in reverse Trendelenburg position. We had very clear distinct portions of the stomach that were adhered to the anterior abdominal wall. I placed a 12 mm port in the left lower quadrant and then used that to fire a laparoscopic stapler with a green load across the tract as close to the anterior abdominal wall as possible we confirmed which tract we needed to divide. We knew from the outside that the fistula was to the left of the PEG tube, on the inside we manipulated the PEG and confirmed, which tract was which. We fired the stapler. There was a small residual amount of tract tissue left. The staple line was hemostatic against the stomach. There was no leaking. I felt that it would be best to try to pull down more of the tract and divided with a stapler. A 5 mm port was placed on the right side of the abdomen and used to pull down the remainder of the tract, I used Harmonic scalpel to dissect out as much of the tract as I could and then we fired another load. Additional tract was excised. The staple line was very close to the anterior abdominal wall now. We removed that specimen from the 12 mm port site with the port itself and passed off the table in a sterile fashion. Using the Lefty-Kurtis fascial closure device we closed the fascia at the left lower quadrant port site with 0 Vicryl stitch. Abdomen was desufflated, ports were removed. Additional local was injected into all the port sites and the skin was closed with 4-0 Monocryl subcuticular stitches where the tract had previously been. That area was debrided with a curette and irrigated out and then packed with packing tape. Please note at the beginning of the case I had closed this area with a 2-0 silk stitch to minimize contamination into the field and then we covered it with a Tegaderm. The patient tolerated procedure well. There were no complications. All counts were correct at the end of the case. I spoke with the at the end of the case by phone. He was very appreciative of our help. JOB# [id number] GIL/JIM
[2018-02-28] MEDS ORDERED: TPN ADULT 1,999.92 ML IV SCH (20:00)
[2018-03-01 07:25] LABS: BUN/Creatinine Ratio 33; Blood Urea Nitrogen 10 mg/dL (7-17); Calcium 8.8 mg/dL (8.4-10.2); Hemolysis Index 12
--- NOTE | 2018-03-01 08:03 | Progress Note ---
Assessment and Plan - Patient Problems (1) Acquired gastric fistula Current Visit: Yes Status: Acute Plan to address problem: Pt stable. s/p division of fistula tract - 02/28/18 - POD#1. No drainage from tract site. Rec: 1) PEG to intermittent suction for 5 days. Then, may start tube feeds. 2) may use PEG for meds only 3) start dressing changes to fistula tract Please call with questions. Subjective Date of service: 03/01/18 Patient Reports: Positive: other (no events) Objective Vital Signs - 12hr 02/28/18 02/28/18 02/28/18 20:23 22:00 23:59 Temperature 99.3 F Pulse Rate 107 H 112 H Respiratory 20 18 Rate Blood Pressure 101/72 O2 Sat by Pulse 100 100 97 Oximetry 03/01/18 05:22 Temperature 98.3 F Pulse Rate 118 H Respiratory 20 Rate Blood Pressure 101/82 O2 Sat by Pulse 97 Oximetry - General physical appearance no distress, no pain, other (awake) - Respiratory normal expansion, normal respiratory effort - Abdomen soft, not tender, not distended, not guarding, not rigid, other (no drainage on fistula dressing; thin gastric fluid with pink tinge) - Labs 02/27/18 05:10 03/01/18 05:53 Diabetes panel 03/01/18 Range/Units 05:53 Sodium 142 (137-145) mmol/L Potassium 4.7 (3.6-5.0) mmol/L Chloride 104.6 (98-107) mmol/L Carbon Dioxide 26 (22-30) mmol/L BUN 10 (7-17) mg/dL Creatinine 0.3 L (0.7-1.2) mg/dL Glucose 108 H (65-100) mg/dL Calcium 8.8 (8.4-10.2) mg/dL Calcium panel 03/01/18 Range/Units 05:53 Calcium 8.8 (8.4-10.2) mg/dL Phosphorus 3.40 (2.5-4.5) mg/dL Pituitary panel 03/01/18 Range/Units 05:53 Sodium 142 (137-145) mmol/L Potassium 4.7 (3.6-5.0) mmol/L Chloride 104.6 (98-107) mmol/L Carbon Dioxide 26 (22-30) mmol/L BUN 10 (7-17) mg/dL Creatinine 0.3 L (0.7-1.2) mg/dL Glucose 108 H (65-100) mg/dL Calcium 8.8 (8.4-10.2) mg/dL Adrenal panel 03/01/18 Range/Units 05:53 Sodium 142 (137-145) mmol/L Potassium 4.7 (3.6-5.0) mmol/L Chloride 104.6 (98-107) mmol/L Carbon Dioxide 26 (22-30) mmol/L BUN 10 (7-17) mg/dL Creatinine 0.3 L (0.7-1.2) mg/dL Glucose 108 H (65-100) mg/dL Calcium 8.8 (8.4-10.2) mg/dL
--- NOTE | 2018-03-01 09:20 | Progress Note ---
Assessment and Plan Imaging 02/19/18 Chest xray: Hazy opacity left lung base concerning for atelectasis vis pneumonia 02/21/18 - CT Abdomen/Pelvis: Metal artifact from right Hip arthroplast and IVC Filter. Current PEG tube with distal tip in anterior mid stomach. Previous PEG tube tract slightly more lateral with adjacent fat stranding. This may reflect edema, inflammation, or infection. No fluid collection to suggest abscess. Cultures 02/19/2018 Blood; Staph.epidermis, 4 out of 4 bottles 02/23/2018 Blood: No growth thus far A/P: 1. Sepsis on Admission: evidenced by leukocytosis, fever and tachycardia. Staph Epidermis, 4 out of 4 bottles. Source most likely PICC line, U/A consistent with UTI. 2. CoNS Bacteremia: source most likely [place] PICC line. Right PICC line needed for TPN to help heal gastric fistula. Will treat with vancomycim and order follow up cultures to ensure clearance. Can d/c existing PICC and place a new one in the left arm. Order placed. 3. Gastric Fistula: Peg tube malfunction- s/p division of gastric cutaneous fistula 02/27/18 4. UTI: U/A consistent with UTI. Neurogenic bladder with chronic indwelling catheter. 5. 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 Plan: -Continue Vancomycin, last dose today [facility] M: [id number] O:[phone] Subjective Date of service: 03/01/18 Principal diagnosis: malfunctioning PEG Interval history: Patient seen and examined, non verbal at baseline. No family at bedside. Nurse notes, labs and reports reviewed. PICC line nurse at bedside. Objective - Exam Narrative Exam: Constitutional: Somnolent, traumtic brain subdural hemorhage, nonverbal . No acute distress Head, Ears, Nose: Normocephalic, atraumatic. External ears, nose normal Eyes: Conjunctivae/corneas clear. No icterus. No ptosis. Neck: Supple, no meningeal signs Oral: unable to assess Cardiovascular: S1, S2 normal. Respiratory: Good air entry, clear to auscultation bilaterally GI: +Gastric fistula Musculoskeletal: No pedal edema, no cyanosis. Skin: No rash or abscess. Hem/Lymphatic: No palpable cervical or supraclavicular nodes. No lymphangitis Psych: Mood : somnolent Neurological: somnolent - Constitutional Vitals: Vital Signs Temp Pulse Resp BP Pulse Ox 98.3 F 118 H 20 101/82 97 03/01/18 05:22 03/01/18 05:22 03/01/18 05:22 03/01/18 05:22 03/01/18 08:48 Temperature -Last 24 Hours Temperature 98.3 F Temperature 99.3 F Temperature 97.5 F Temperature 97.0 F Temperature 98.3 F Temperature 98.1 F Temperature 99.2 F - Labs CBC & Chem 7: 02/27/18 05:10 03/01/18 05:53 Labs: Abnormal lab results 02/28/18 03/01/18 03/01/18 Range/Units 17:49 00:17 05:53 Creatinine 0.3 L (0.7-1.2) mg/dL Glucose 108 H (65-100) mg/dL POC Glucose 149 H 140 H (70-105)
[2018-03-01] MEDS: PROTONIX IV SCH (10:19)
--- NOTE | 2018-03-01 11:00 | Progress Note ---
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 In addition, there was evidence of UTI and possible afib with RVR. She was also found to have a malfunctioning PEG tube. pCXR Impression: Hazy opacity left lung base concerning for atelectasis verus pneumonia, remote granulomatous disease. -Acquired gastric fistula: appreciated GS input, PEG to LIS==>"This is a chronically drainage tract from a previous PEG tube. She continues to drain a f air amount from the old PEG site. In looking at the CT again, I think that the problem is the old PEG tract is between most of the stomach body and the new PEG. Therefore, all the drainage is able to empty from the old PEG site before getting to the new PEG site. I think that our only option may be to surgically divide the old PEG tract. I will reach out to family and see how they want to proceed" per Dr. Sawyer. -Sepsis secondary to urinary tract infection and possible pneumonia: Continue IV antibiotics, follow cultures -UTI (urinary tract infection): treat with abx, urine culture not sent. -Acute encephalopathy Secondary to sepsis and UTI: treat the infection -Possible LLL NH/HAP Pneumonia with MRSE (staph epidermis) bacteremia: continue abx, consulted ID -Hypernatremia: IV D5W for now -Hyperkalemia, treated now hypokalemia: replaced -PEG tube malfunction, old PEG site is draining, so anything you put in new PEG it goes thru old PEG site via a fistula: appreciate GI input, continue TPN, LIS to PEG to try and close the fistula - unlikely, Atrial fibrillation with RVR, Cardiology was consulted -DVT prophylaxis: Lovenox 40 mg subcutaneous daily -Drop in HCT: repeat h/h, s/p transfusion of 1 units prbc -MRSE (staph epidermis) bacteremia, most likely line infection per ID, awaiting finalization of repeat blood ctx to be negative to do another picc 02/27/18 I called and spoke with Antonio at [phone] @ [phone], he did speak with Dr. Sawyer and wants to proceed with surgery 02/28/18: Op Report Finding: Distinct tract of stomach up to abdominal wall, separate from current PEG tube Procedure: Dx lap, Lap division of gastrocutaneous fistula 03/01/18: new picc line today. Will need 5 more days of TPN then restart PEG feeding per Dr. Sawyer then discharge back to OR History Interval history: Patient was seen and examined. Follow-up on current diagnosis of fevers. Overnight uneventful. Imaging, nursing note, chart, labs and old chart reviewed. Hospitalist Physical - Physical exam Narrative exam: Gen: severe ill appearing, nonverbal, chronically debilitated, HEENT: NCAT, EOMI, PERRL, OP and mm dry Neck: supple, no adenopathy, no thyromegaly, no JVD CVS/Heart: Regular tachycardia normal S1S2, pulses present bilaterally Chest/Lungs: diminished bs bilateral Symmetrical chest expansion, good air entry bilaterally GI/Abdomen: PEG with bag over it, draining brown substance, ?bile vs fecal material, +bowel sounds, no guarding or rebound /Bladder: mobley in place Extermity/Skin: leg atrophic, foot drop bilaterally MSK: no FROM x 4 Neuro: CN 2-12 grossly intact, doesn't follow commands, Psych: unresponsive - Constitutional Vitals: Temp Pulse Resp BP Pulse Ox 98.3 F 118 H 20 101/82 97 03/01/18 05:22 03/01/18 05:22 03/01/18 05:22 03/01/18 05:22 03/01/18 08:48 General appearance: Present: no acute distress Results - Labs CBC & Chem 7: 02/27/18 05:10 03/01/18 05:53 Labs: Laboratory Last Values WBC 9.1 K/mm3 (4.5-11.0) 02/27/18 05:10 RBC 4.37 M/mm3 (3.65-5.03) 02/27/18 05:10 Hgb 8.2 gm/dl (10.1-14.3) L 02/27/18 05:10 Hct 26.3 % (30.3-42.9) L 02/27/18 05:10 MCV 60 fl (79-97) L 02/27/18 05:10 MCH 19 pg (28-32) L 02/27/18 05:10 MCHC 31 % (30-34) 02/27/18 05:10 RDW 27.9 % (13.2-15.2) H 02/27/18 05:10 Plt Count 234 K/mm3 (140-440) 02/27/18 05:10 Add Manual Diff Complete 02/21/18 08:12 Total Counted 100 02/21/18 08:12 Seg Neuts % (Manual) 81.0 % (40.0-70.0) H 02/21/18 08:12 Band Neutrophils % 0 % 02/21/18 08:12 Lymphocytes % (Manual) 8.0 % (13.4-35.0) L 02/21/18 08:12 Reactive Lymphs % (Man) 0 % 02/21/18 08:12 Monocytes % (Manual) 2.0 % (0.0-7.3) 02/21/18 08:12 Eosinophils % (Manual) 9.0 % (0.0-4.3) H 02/21/18 08:12 Basophils % (Manual) 0 % (0.0-1.8) 02/21/18 08:12 Metamyelocytes % 0 % 02/21/18 08:12 Myelocytes % 0 % 02/21/18 08:12 Promyelocytes % 0 % 02/21/18 08:12 Blast Cells % 0 % 02/21/18 08:12 Nucleated RBC % Not Reportable 02/21/18 08:12 Seg Neutrophils # Man 9.6 K/mm3 (1.8-7.7) H 02/21/18 08:12 Band Neutrophils # 0.0 K/mm3 02/21/18 08:12 Lymphocytes # (Manual) 1.0 K/mm3 (1.2-5.4) L 02/21/18 08:12 Abs React Lymphs (Man) 0.0 K/mm3 02/21/18 08:12 Monocytes # (Manual) 0.2 K/mm3 (0.0-0.8) 02/21/18 08:12 Eosinophils # (Manual) 1.1 K/mm3 (0.0-0.4) H 02/21/18 08:12 Basophils # (Manual) 0.0 K/mm3 (0.0-0.1) 02/21/18 08:12 Metamyelocytes # 0.0 K/mm3 02/21/18 08:12 Myelocytes # 0.0 K/mm3 02/21/18 08:12 Promyelocytes # 0.0 K/mm3 02/21/18 08:12 Blast Cells # 0.0 K/mm3 02/21/18 08:12 WBC Morphology Not Reportable 02/21/18 08:12 Hypersegmented Neuts Not Reportable 02/21/18 08:12 Hyposegmented Neuts Not Reportable 02/21/18 08:12 Hypogranular Neuts Not Reportable 02/21/18 08:12 Smudge Cells Not Reportable 02/21/18 08:12 Toxic Granulation Not Reportable 02/21/18 08:12 Toxic Vacuolation Not Reportable 02/21/18 08:12 Dohle Bodies Not Reportable 02/21/18 08:12 Pelger-Huet Anomaly Not Reportable 02/21/18 08:12 Jamari Rods Not Reportable 02/21/18 08:12 Platelet Estimate Consistent w auto 02/21/18 08:12 Clumped Platelets Not Reportable 02/21/18 08:12 Plt Clumps, EDTA Not Reportable 02/21/18 08:12 Large Platelets Not Reportable 02/21/18 08:12 Giant Platelets Not Reportable 02/21/18 08:12 Platelet Satelliting Not Reportable 02/21/18 08:12 Plt Morphology Comment Not Reportable 02/21/18 08:12 RBC Morphology Not Reportable 02/21/18 08:12 Dimorphic RBCs Not Reportable 02/21/18 08:12 Polychromasia Not Reportable 02/21/18 08:12 Hypochromasia 2+ 02/21/18 08:12 Poikilocytosis 1+ 02/21/18 08:12 Anisocytosis 2+ 02/21/18 08:12 Microcytosis 2+ 02/21/18 08:12 Macrocytosis Not Reportable 02/21/18 08:12 Spherocytes Not Reportable 02/21/18 08:12 Pappenheimer Bodies Not Reportable 02/21/18 08:12 Sickle Cells Not Reportable 02/21/18 08:12 Target Cells 1+ 02/21/18 08:12 Tear Drop Cells Not Reportable 02/21/18 08:12 Ovalocytes Not Reportable 02/21/18 08:12 Helmet Cells Not Reportable 02/21/18 08:12 Dumont-Thomas Bodies Not Reportable 02/21/18 08:12 Richton Rings Not Reportable 02/21/18 08:12 Crane Cells Not Reportable 02/21/18 08:12 Bite Cells Not Reportable 02/21/18 08:12 Crenated Cell Not Reportable 02/21/18 08:12 Elliptocytes Not Reportable 02/21/18 08:12 Acanthocytes (Spur) Not Reportable 02/21/18 08:12 Rouleaux Not Reportable 02/21/18 08:12 Hemoglobin C Crystals Not Reportable 02/21/18 08:12 Schistocytes Not Reportable 02/21/18 08:12 Malaria parasites Not Reportable 02/21/18 08:12 Joel Bodies Not Reportable 02/21/18 08:12 Hem Pathologist Commnt No 02/21/18 08:12 Sodium 142 mmol/L (137-145) 03/01/18 05:53 Potassium 4.7 mmol/L (3.6-5.0) 03/01/18 05:53 Chloride 104.6 mmol/L (98-107) 03/01/18 05:53 Carbon Dioxide 26 mmol/L (22-30) 03/01/18 05:53 Anion Gap 16 mmol/L 03/01/18 05:53 BUN 10 mg/dL (7-17) 03/01/18 05:53 Creatinine 0.3 mg/dL (0.7-1.2) L 03/01/18 05:53 Estimated GFR > 60 ml/min 03/01/18 05:53 BUN/Creatinine Ratio 33 % 03/01/18 05:53 Glucose 108 mg/dL (65-100) H 03/01/18 05:53 POC Glucose 93 (70-105) 03/01/18 06:45 Lactic Acid 1.40 mmol/L (0.7-2.0) 02/19/18 21:10 Calcium 8.8 mg/dL (8.4-10.2) 03/01/18 05:53 Phosphorus 3.40 mg/dL (2.5-4.5) 03/01/18 05:53 Magnesium 1.80 mg/dL (1.7-2.3) 03/01/18 05:53 Total Bilirubin 0.40 mg/dL (0.1-1.2) 02/28/18 05:45 AST 28 units/L (5-40) 02/28/18 05:45 ALT 33 units/L (7-56) 02/28/18 05:45 Alkaline Phosphatase 82 units/L (35-129) 02/28/18 05:45 Total Protein 7.3 g/dL (6.3-8.2) 02/28/18 05:45 Albumin 3.0 g/dL (3.9-5) L 02/28/18 05:45 Albumin/Globulin Ratio 0.7 % 02/28/18 05:45 Urine Color Red (Yellow) 02/19/18 Unknown Urine Turbidity Cloudy (Clear) 02/19/18 Unknown Urine pH 8.0 (5.0-7.0) H 02/19/18 Unknown Ur Specific [place]loan 1.013 (1.003-1.030) 02/19/18 Unknown Urine Protein 100 mg/dl mg/dL (Negative) 02/19/18 Unknown Urine Glucose (UA) Neg mg/dL (Negative) 02/19/18 Unknown Urine Ketones Neg mg/dL (Negative) 02/19/18 Unknown Urine Blood Lg (Negative) 02/19/18 Unknown Urine Nitrite Neg (Negative) 02/19/18 Unknown Urine Bilirubin Neg (Negative) 02/19/18 Unknown Urine Urobilinogen 2.0 mg/dL (<2.0) 02/19/18 Unknown Ur Leukocyte Esterase Lg (Negative) 02/19/18 Unknown Urine WBC (Auto) > 182.0 /HPF (0.0-6.0) H 02/19/18 Unknown Urine RBC (Auto) > 182.0 /HPF (0.0-6.0) 02/19/18 Unknown Urine Bacteria (Auto) 3+ /HPF (Negative) 02/19/18 Unknown Urine WBC Clumps 3+ /HPF 02/19/18 Unknown Vancomycin Trough 45.0 ug/mL (5.0-20.0) H 02/24/18 17:13 Random Vancomycin 8.0 ug/mL (0-40.0) 02/26/18 06:10 Blood Type B POSITIVE 02/28/18 09:58 Antibody Screen Negative 02/28/18 09:58 Crossmatch See Detail 02/24/18 14:40 Nutrition/Malnutrition Assess - Dietary Evaluation Nutrition/Malnutrition Findings: Nutrition Notes Start: 02/21/18 14:12 Freq: Status: Active Protocol: Document 02/28/18 11:14 TW (Rec: 02/28/18 11:17 TW [id number]) Co-Sign 02/28/18 11:14 LP Nutrition Notes Initial or Follow up Reassessment Current Diagnosis Sepsis Stroke Other Pertinent Diagnosis Pneumonia, UTI, acute encephalopathy, DVT, Current Diet TPN at 83.33mL/hr Labs/Tests Reviewed Pertinent Medications Reviewed Height 5 ft 5 in Weight 104.5 kg [place] Body Weight (lbs) 125.0 BMI 38.3 Subjective/Other Information Day 8 CPN. Pt not in room d/t a laparcsopy and division of gastric cutaneous fistula. Percent of energy/protein needs met: 62%/100% Burn Absent Trauma Absent #1 Nutrition Diagnosis Inadequate oral intake Diagnosis Progress(for reassessment Continues documentation) Is patient on ventilator? No Is Patient Ambulatory and/or Out of Bed No REE-([facility]-confined to bed) 2002.596 Kcal/Kg value to use for calculation 15 Approximate Energy Requirements Using 1568 kcal/Kg Calculation Used for Recommendations Kcal/kg Additional Notes Pro needs 0.8-1g/kg adjBW: 64- 81g/day Fluid needs 1ml/kcal Nutrition Intervention Nutrition Support: Continue CPN at 83.33mL/hr: MTE, MVI, 13.8% Dextrose Osmolarity: 1186 Kcal 1,247 Protein (gm) 78 Carbohydrates (gm) 275 Fat (gm) 0 Fluid (mL) 2,000 Fiber (gm) 0 Goal #1 PN to meet energy/protein needs as best as possible Anticipated Discharge Needs: Unable to determine at this time Follow-Up By: 03/01/18 Additional Comments Labs in AM: BMP, Mg, Phos
[2018-03-01] MEDS: VANCOMYCIN 1,750 MG in NACL 0.9% 500 ML 500 ML IV SCH (11:39)
[2018-03-01] MEDS: COZAAR PO SCH (11:40)
[2018-03-01] MEDS: LOPRESSOR PO SCH (11:40)
--- NOTE | 2018-03-01 12:27 | XRay Report ---
AP CHEST: HISTORY: Left arm PICC placement The right arm PICC is unchanged since 02/19/18 terminating near the cavoatrial junction. A new left arm PICC has been inserted which terminates in the right atrium. Consider retraction by 3-4 cm. Mild cardiomegaly is stable. The lungs are clear. Chronic granulomatous findings are stable. IMPRESSION: Left arm PICC as described. Mild cardiomegaly. Lungs clear.
[2018-03-01] MEDS ORDERED: TPN ADULT 1,999.92 ML IV SCH (20:00)
[2018-03-01] MEDS ORDERED: INTRALIPID 20% 250 ML IV SCH (20:00)
[2018-03-02 05:53] LABS: BUN/Creatinine Ratio 25; Blood Urea Nitrogen 10 mg/dL (7-17); Calcium 8.8 mg/dL (8.4-10.2); Hemolysis Index 0
--- NOTE | 2018-03-02 09:25 | Progress Note ---
Assessment and Plan Imaging 02/19/18 Chest xray: Hazy opacity left lung base concerning for atelectasis vis pneumonia 02/21/18 - CT Abdomen/Pelvis: Metal artifact from right Hip arthroplast and IVC Filter. Current PEG tube with distal tip in anterior mid stomach. Previous PEG tube tract slightly more lateral with adjacent fat stranding. This may reflect edema, inflammation, or infection. No fluid collection to suggest abscess. Cultures 02/19/2018 Blood; Staph.epidermis, 4 out of 4 bottles 02/23/2018 Blood: No growth thus far A/P: 1. Sepsis on Admission: Improved, Spiking fevers. Staph Epidermis, 4 out of 4 bottles. Source most likely PICC line, U/A consistent with UTI. 2. CoNS Bacteremia: source most likely [place] PICC line. Right PICC line needed for TPN to help heal gastric fistula. Will treat with vancomycim and order follow up cultures to ensure clearance. Can d/c existing PICC and place a new one in the left arm. Order placed. 3. Gastric Fistula: Peg tube malfunction- s/p division of gastric cutaneous fistula 02/27/18 4. UTI: U/A consistent with UTI. Neurogenic bladder with chronic indwelling catheter. 5. 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 Plan: -Continue Vancomycin for one more day, Spiking fevers -Monitor fevers [facility] M: [phone] O:[phone] Subjective Date of service: 03/02/18 Principal diagnosis: malfunctioning PEG Interval history: Patient seen and examined, non verbal at baseline. No family at bedside. Nurse n otes, labs and reports reviewed. Objective - Exam Narrative Exam: Constitutional: Somnolent, traumtic brain subdural hemorhage, nonverbal . No acute distress Head, Ears, Nose: Normocephalic, atraumatic. External ears, nose normal Eyes: Conjunctivae/corneas clear. No icterus. No ptosis. Neck: Supple, no meningeal signs Oral: unable to assess Cardiovascular: S1, S2 normal. Respiratory: Good air entry, clear to auscultation bilaterally GI: +Gastric fistula Musculoskeletal: No pedal edema, no cyanosis. Skin: No rash or abscess. Hem/Lymphatic: No palpable cervical or supraclavicular nodes. No lymphangitis Psych: Mood : somnolent Neurological: somnolent - Constitutional Vitals: Vital Signs Temp Pulse Resp BP Pulse Ox 99.1 F 128 H 20 102/69 100 03/02/18 05:08 03/02/18 05:08 03/02/18 05:08 03/02/18 05:08 03/02/18 09:16 Temperature -Last 24 Hours Temperature 99.1 F Temperature 99.3 F Temperature 99.4 F Temperature 100.2 F - Labs CBC & Chem 7: 02/27/18 05:10 03/02/18 05:00 Labs: Abnormal lab results 03/01/18 03/01/18 03/02/18 Range/Units 11:33 16:47 00:14 Creatinine (0.7-1.2) mg/dL POC Glucose 117 H 118 H 112 H (70-105) 03/02/18 03/02/18 Range/Units 05:00 06:10 Creatinine 0.4 L (0.7-1.2) mg/dL POC Glucose 109 H (70-105)
[2018-03-02] MEDS: COZAAR PO SCH (11:15)
[2018-03-02] MEDS: PROTONIX IV SCH (11:15)
[2018-03-02] MEDS: LOPRESSOR PO SCH (11:16)
[2018-03-02] MEDS ORDERED: VANCOMYCIN PHARMACY TO DOSE IV SCH (14:00)
--- NOTE | 2018-03-02 16:07 | Progress Note ---
Assessment and Plan - Patient Problems (1) Acute encephalopathy Current Visit: Yes Status: Acute Plan to address problem: Secondary to sepsis and UTI (2) Sepsis Current Visit: Yes Status: Acute Qualifiers: Sepsis type: sepsis due to unspecified organism Qualified Code(s): A41.9 - Sepsis, unspecified organism Plan to address problem: Sepsis secondary to urinary tract infection and possible pneumonia Resolved On Vancomycin for Staph Epidermidis (3) UTI (urinary tract infection) Current Visit: Yes Status: Acute Qualifiers: Urinary tract infection type: acute cystitis Plan to address problem: Resolved (4) Pneumonia Current Visit: Yes Status: Acute Qualifiers: Pneumonia type: aspiration pneumonia Laterality: left Lung location: lower lobe of lung Qualified Code(s): J18.1 - Lobar pneumonia, unspecified organism Plan to address problem: Possible aspiration Resolved (5) Hypernatremia Current Visit: Yes Status: Acute (6) Cerebrovascular accident Current Visit: Yes Status: Chronic Qualifiers: CVA mechanism: unspecified Qualified Code(s): I63.9 - Cerebral infarction, unspecified Plan to address problem: Supportive care (7) PEG tube malfunction Current Visit: Yes Status: Chronic Plan to address problem: Acquired gastric fistula: appreciated Gen Surgery input, PEG to LIS==>"This is a chronically drainage tract from a previous PEG tube. She continues to drain a fair amount from the old PEG site. In looking at the CT again, I think that the problem is the old PEG tract is between most of the stomach body and the new PEG. Therefore, all the drainage is able to empty from the old PEG site before getting to the new PEG site. Will defer to General surgery--Dr Sawyer and Dr Maya Peg tube feedings to start on Tuesday/Tuesday03/06/18 - (8) Atrial fibrillation with RVR Current Visit: Yes Status: Acute Plan to address problem: Stable rhythm (9) DVT prophylaxis Current Visit: Yes Status: Acute Plan to address problem: Lovenox 40 mg subcutaneous daily and GI prophylaxis (10) Full code status Current Visit: Yes Status: Acute Plan to address problem: Discussed DO NOT RESUSCITATE but patient's wants everything to be done (11) Discharge planning issues Current Visit: Yes Status: Acute Plan to address problem: Patient is from [facility] , once stable patient never discharged back to residential Subjective Date of service: 03/02/18 Principal diagnosis: malfunctioning PEG Interval history: 52-year-old -Turkish female with history of subdural hematoma and cerebrovascular accident was baseline is aphasic and dysphagia admitted for sepsis and UTI. Patient has a PEG tube which was malfunctioning and was removed. The PEG tube hole is healing and still draining some gastric fluid. Patient is apparently on TPN as per the . CODE STATUS was discussed. wants her to be full code. Patient is being treated for sepsis urinary tract infection and hypernatremia---At time of admission Objective - Exam Narrative Exam: Patient is aphasic and decreased responsive - Constitutional Vitals: Vital Signs - 12hr 03/02/18 03/02/18 03/02/18 05:08 09:16 11:53 Temperature 99.1 F 99.7 F H Pulse Rate 128 H 114 H Respiratory 20 22 Rate Blood Pressure 102/69 100/56 O2 Sat by Pulse 96 100 99 Oximetry General appearance: Present: no acute distress, well-nourished - EENT Eyes: PERRL, EOM intact ENT: hearing intact, clear oral mucosa Ears: bilateral: normal - Neck Neck: supple, normal ROM - Respiratory Respiratory effort: normal Respiratory: bilateral: CTA - Breasts Breasts: normal - Cardiovascular Heart rate: 78 Rhythm: regular Heart Sounds: Present: S1 & S2. Absent: gallop, rub Extremities: pulses intact, No edema, normal color, Full ROM - Gastrointestinal General gastrointestinal: Present: soft, non-tender, non-distended, normal bowel sounds Rectal Exam: deferred - Genitourinary Female genitourinary: normal - Integumentary Integumentary: clear, warm, dry - Musculoskeletal Musculoskeletal: generalized weakness - Psychiatric Psychiatric: other - Allied health notes Allied health notes reviewed: nursing, case management - Labs CBC & Chem 7: 02/27/18 05:10 03/02/18 05:00 Labs: Abnormal lab results 03/01/18 03/02/18 03/02/18 Range/Units 16:47 00:14 05:00 Creatinine 0.4 L (0.7-1.2) mg/dL POC Glucose 118 H 112 H (70-105) 03/02/18 03/02/18 Range/Units 06:10 11:58 Creatinine (0.7-1.2) mg/dL POC Glucose 109 H 120 H (70-105)
[2018-03-02] MEDS ORDERED: TPN ADULT 1,999.92 ML IV SCH (20:00)
[2018-03-02] MEDS: VANCOMYCIN 2,000 MG in NACL 0.9% 500 ML 500 ML IV SCH (22:42)
[2018-03-03 06:14] LABS: Hematocrit 24.5 % (30.3-42.9); Hemoglobin 7.6 gm/dl (10.1-14.3); Mean Corpuscular HGB Conc 31 % (30-34); Platelet Count 267 K/mm3 (140-440); Red Blood Count 4.18 M/mm3 (3.65-5.03)
[2018-03-03 06:17] LABS: Mean Corpuscular Volume 59 fl (79-97); Red Cell Distribution Width 27.7 % (13.2-15.2)
[2018-03-03 06:34] LABS: BUN/Creatinine Ratio 30; Blood Urea Nitrogen 9 mg/dL (7-17); Calcium 8.9 mg/dL (8.4-10.2); Hemolysis Index 0
[2018-03-03 07:08] LABS: Basophils % (Manual) 0 % (0.0-1.8); Total Cells Counted 100
[2018-03-03 07:11] LABS: Anisocytosis 2+; Hypochromasia 2+; Poikilocytosis 1+; Target Cells 1+
[2018-03-03 07:12] LABS: Platelet Estimate Consistent w Auto
--- NOTE | 2018-03-03 09:05 | Progress Note ---
Assessment and Plan Imaging 02/19/18 Chest xray: Hazy opacity left lung base concerning for atelectasis vis pneumonia 02/21/18 - CT Abdomen/Pelvis: Metal artifact from right Hip arthroplast and IVC Filter. Current PEG tube with distal tip in anterior mid stomach. Previous PEG tube tract slightly more lateral with adjacent fat stranding. This may reflect edema, inflammation, or infection. No fluid collection to suggest abscess. Cultures 02/19/2018 Blood; Staph.epidermis, 4 out of 4 bottles 02/23/2018 Blood: No growth thus far A/P: 1. Sepsis on Admission: leukocytosis trending up, 9.1 -->12.1. fevers improving. Staph Epidermis, 4 out of 4 bottles. Source most likely PICC line, U/A consistent with UTI. 2. CoNS Bacteremia: source most likely [place] PICC line. Right PICC line needed for TPN to help heal gastric fistula. Will treat with vancomycim and order follow up cultures to ensure clearance. New PICC line left arm. New transient fevers, monitor closely. 3. Gastric Fistula: Peg tube malfunction- s/p division of gastric cutaneous fistula 02/27/18 4. UTI: U/A consistent with UTI. Neurogenic bladder with chronic indwelling catheter. 5. 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 Plan: -Continue Vancomycin -Monitor fevers -Continue to monitor leukocytosis Dr. Latham will be specifications checker and rounding in the hospital this weekend, . Clementina Swanson NP [facility] M: [id number] O:[phone] Subjective Date of service: 03/03/18 Principal diagnosis: malfunctioning PEG Interval history: Patient seen and examined, non verbal at baseline. No family at bedside. Nurse notes, labs and reports reviewed. Objective - Exam Narrative Exam: Constitutional: Somnolent, traumtic brain subdural hemorhage, nonverbal . No acute distress Head, Ears, Nose: Normocephalic, atraumatic. External ears, nose normal Eyes: Conjunctivae/corneas clear. No icterus. No ptosis. Neck: Supple, no meningeal signs Oral: unable to assess Cardiovascular: S1, S2 normal. Respiratory: Good air entry, clear to auscultation bilaterally GI: +Gastric fistula Musculoskeletal: No pedal edema, no cyanosis. Skin: No rash or abscess. Hem/Lymphatic: No palpable cervical or supraclavicular nodes. No lymphangitis Psych: Mood : somnolent Neurological: somnolent Lines; left PICC - Constitutional Vitals: Vital Signs Temp Pulse Resp BP Pulse Ox 99.9 F H 110 H 24 111/72 100 03/03/18 04:57 03/03/18 04:57 03/03/18 04:57 03/03/18 04:57 03/03/18 04:57 Temperature -Last 24 Hours Temperature 99.9 F Temperature 99.3 F Temperature 98.3 F Temperature 98.9 F Temperature 99.7 F - Labs CBC & Chem 7: 03/03/18 05:50 03/03/18 05:50 Labs: Abnormal lab results 03/02/18 03/02/18 03/03/18 Range/Units 11:58 16:20 00:45 WBC (4.5-11.0) K/mm3 Hgb (10.1-14.3) gm/dl Hct (30.3-42.9) % MCV (79-97) fl MCH (28-32) pg RDW (13.2-15.2) % Monocytes % (Manual) (0.0-7.3) % Eosinophils % (Manual) (0.0-4.3) % Monocytes # (Manual) (0.0-0.8) K/mm3 Eosinophils # (Manual) (0.0-0.4) K/mm3 Creatinine (0.7-1.2) mg/dL Glucose (65-100) mg/dL POC Glucose 120 H 116 H 111 H (70-105) 03/03/18 03/03/18 03/03/18 Range/Units 05:50 05:50 06:27 WBC 12.1 H (4.5-11.0) K/mm3 Hgb 7.6 L (10.1-14.3) gm/dl Hct 24.5 L (30.3-42.9) % MCV 59 L (79-97) fl MCH 18 L (28-32) pg RDW 27.7 H (13.2-15.2) % Monocytes % (Manual) 8.0 H (0.0-7.3) % Eosinophils % (Manual) 7.0 H (0.0-4.3) % Monocytes # (Manual) 1.0 H (0.0-0.8) K/mm3 Eosinophils # (Manual) 0.8 H (0.0-0.4) K/mm3 Creatinine 0.3 L (0.7-1.2) mg/dL Glucose 104 H (65-100) mg/dL POC Glucose 110 H (70-105)
[2018-03-03] MEDS: PROTONIX IV SCH (11:50)
[2018-03-03] MEDS: COZAAR PO SCH (11:51)
[2018-03-03] MEDS: LOPRESSOR PO SCH ×2 (11:51→22:09)
--- NOTE | 2018-03-03 17:47 | Progress Note ---
Assessment and Plan - Patient Problems (1) Acute encephalopathy Current Visit: Yes Status: Acute Plan to address problem: Secondary to sepsis and UTI (2) Sepsis Current Visit: Yes Status: Acute Qualifiers: Sepsis type: sepsis due to unspecified organism Qualified Code(s): A41.9 - Sepsis, unspecified organism Plan to address problem: Sepsis secondary to urinary tract infection and possible pneumonia Resolved On Vancomycin for Staph Epidermidis (3) UTI (urinary tract infection) Current Visit: Yes Status: Acute Qualifiers: Urinary tract infection type: acute cystitis Plan to address problem: Resolved (4) Pneumonia Current Visit: Yes Status: Acute Qualifiers: Pneumonia type: aspiration pneumonia Laterality: left Lung location: lower lobe of lung Plan to address problem: Possible aspiration Resolved (5) Hypernatremia Current Visit: Yes Status: Acute Plan to address problem: Resolved D/c IV D5w (6) Cerebrovascular accident Current Visit: Yes Status: Chronic Qualifiers: CVA mechanism: unspecified Qualified Code(s): I63.9 - Cerebral infarction, unspecified Plan to address problem: Supportive care (7) PEG tube malfunction Current Visit: Yes Status: Chronic Plan to address problem: Acquired gastric fistula: appreciated Gen Surgery input, PEG to LIS==>"This is a chronically drainage tract from a previous PEG tube. She continues to drain a fair amount from the old PEG site. In looking at the CT again, I think that the problem is the old PEG tract is between most of the stomach body and the new PEG. Therefore, all the drainage is able to empty from the old PEG site before getting to the new PEG site. Will defer to General surgery--Dr Sawyer and Dr Maya Peg tube feedings to start on Tuesday/Tuesday03/06/18 - (8) Atrial fibrillation with RVR Current Visit: Yes Status: Acute Plan to address problem: Stable rhythm (9) DVT prophylaxis Current Visit: Yes Status: Acute Plan to address problem: Lovenox 40 mg subcutaneous daily and GI prophylaxis (10) Full code status Current Visit: Yes Status: Acute Plan to address problem: Discussed DO NOT RESUSCITATE but patient's wants everything to be done (11) Discharge planning issues Current Visit: Yes Status: Acute Plan to address problem: Patient is from [facility] , once stable patient to be [facility] back [facility] Subjective Date of service: 03/03/18 Principal diagnosis: malfunctioning PEG Interval history: 52-year-old -Sud[place] female with history of subdural hematoma and cerebrovascular accident was baseline is aphasic and dysphagia admitted for sepsis and UTI. Patient has a PEG tube which was malfunctioning and was removed. The PEG tube hole is healing and still draining some gastric fluid. Patient is apparently on TPN as per the . CODE STATUS was discussed. wants her to be full code. Patient is being treated for sepsis urinary tract infection and hypernatremia Objective - Exam Narrative Exam: Patient is aphasic and decreased responsive - Constitutional Vitals: Vital Signs - 12hr 03/03/18 03/03/18 11:30 11:51 Temperature 98.9 F Pulse Rate 114 H Respiratory 20 Rate Blood Pressure 128/69 128/69 O2 Sat by Pulse 99 Oximetry General appearance: Present: no acute distress, well-nourished - EENT Eyes: PERRL, EOM intact ENT: hearing intact, clear oral mucosa Ears: bilateral: normal - Neck Neck: supple, normal ROM - Respiratory Respiratory effort: normal Respiratory: bilateral: CTA - Breasts Breasts: normal - Cardiovascular Heart rate: 78 Rhythm: regular Heart Sounds: Present: S1 & S2. Absent: gallop, rub Extremities: pulses intact, No edema, normal color, Full ROM - Gastrointestinal General gastrointestinal: Present: soft, non-tender, non-distended, normal bowel sounds - Genitourinary Female genitourinary: normal - Integumentary Integumentary: clear, warm, dry - Musculoskeletal Musculoskeletal: 1, strength equal bilaterally - Allied health notes Allied health notes reviewed: nursing - Labs CBC & Chem 7: 03/03/18 05:50 03/03/18 05:50 Labs: Abnormal lab results 03/03/18 03/03/18 03/03/18 Range/Units 00:45 05:50 05:50 WBC 12.1 H (4.5-11.0) K/mm3 Hgb 7.6 L (10.1-14.3) gm/dl Hct 24.5 L (30.3-42.9) % MCV 59 L (79-97) fl MCH 18 L (28-32) pg RDW 27.7 H (13.2-15.2) % Monocytes % (Manual) 8.0 H (0.0-7.3) % Eosinophils % (Manual) 7.0 H (0.0-4.3) % Monocytes # (Manual) 1.0 H (0.0-0.8) K/mm3 Eosinophils # (Manual) 0.8 H (0.0-0.4) K/mm3 Creatinine 0.3 L (0.7-1.2) mg/dL Glucose 104 H (65-100) mg/dL POC Glucose 111 H (70-105) 03/03/18 03/03/18 03/03/18 Range/Units 06:27 11:02 17:06 WBC (4.5-11.0) K/mm3 Hgb (10.1-14.3) gm/dl Hct (30.3-42.9) % MCV (79-97) fl MCH (28-32) pg RDW (13.2-15.2) % Monocytes % (Manual) (0.0-7.3) % Eosinophils % (Manual) (0.0-4.3) % Monocytes # (Manual) (0.0-0.8) K/mm3 Eosinophils # (Manual) (0.0-0.4) K/mm3 Creatinine (0.7-1.2) mg/dL Glucose (65-100) mg/dL POC Glucose 110 H 139 H 121 H (70-105)
[2018-03-03] MEDS: VANCOMYCIN 2,000 MG in NACL 0.9% 500 ML 500 ML IV SCH (18:41)
[2018-03-03] MEDS ORDERED: TPN ADULT 1,999.92 ML IV SCH (20:00)
[2018-03-03] MEDS ORDERED: INTRALIPID 20% 250 ML IV SCH (20:00)
[2018-03-03] MEDS: VANCOMYCIN 1,750 MG in NACL 0.9% 500 ML 500 ML IV SCH (22:02)
[2018-03-04 06:24] LABS: BUN/Creatinine Ratio 28; Blood Urea Nitrogen 11 mg/dL (7-17); Calcium 9.1 mg/dL (8.4-10.2); Hemolysis Index 0
[2018-03-04] MEDS: PROTONIX IV SCH (11:03)
[2018-03-04] MEDS: LOPRESSOR PO SCH ×3 (11:03→21:14)
[2018-03-04] MEDS: COZAAR PO SCH (11:03)
--- NOTE | 2018-03-04 12:31 | Progress Note ---
Assessment and Plan - Patient Problems (1) Acquired gastric fistula Current Visit: Yes Status: Acute Plan to address problem: Pt stable. s/p division of fistula tract - 02/28/18 - POD#4. No drainage from tract site. Rec: 1) May start tube feeds tomorrow. start slow and gradually increase. Would check residuals every 4 hours to make sure excess pressure is not building up. 2) Continue dressing changes to fistula tract until healed. Please call with questions. Subjective Date of service: 03/04/18 Patient Reports: Positive: other (no new issues) Objective Vital Signs - 12hr 03/04/18 03/04/18 05:32 11:03 Temperature 99.5 F Pulse Rate 120 H 120 H Respiratory 20 Rate Blood Pressure 119/73 O2 Sat by Pulse 100 Oximetry - General physical appearance no distress, no pain - Respiratory normal expansion, normal respiratory effort - Abdomen soft, not tender, not distended, other (PEG drainage is essentially clear. Fistula wound has mesalt packing. ) - Integumentary no rash, no growths, no abnormal pigmentation - Labs 03/03/18 05:50 03/04/18 Unknown Diabetes panel 03/04/18 Range/Units Unknown Sodium 138 (137-145) mmol/L Potassium 4.4 (3.6-5.0) mmol/L Chloride 99.7 (98-107) mmol/L Carbon Dioxide 29 (22-30) mmol/L BUN 11 (7-17) mg/dL Creatinine 0.4 L (0.7-1.2) mg/dL Glucose 96 (65-100) mg/dL Calcium 9.1 (8.4-10.2) mg/dL Calcium panel 03/04/18 Range/Units Unknown Calcium 9.1 (8.4-10.2) mg/dL Phosphorus 3.70 (2.5-4.5) mg/dL Pituitary panel 03/04/18 Range/Units Unknown Sodium 138 (137-145) mmol/L Potassium 4.4 (3.6-5.0) mmol/L Chloride 99.7 (98-107) mmol/L Carbon Dioxide 29 (22-30) mmol/L BUN 11 (7-17) mg/dL Creatinine 0.4 L (0.7-1.2) mg/dL Glucose 96 (65-100) mg/dL Calcium 9.1 (8.4-10.2) mg/dL Adrenal panel 03/04/18 Range/Units Unknown Sodium 138 (137-145) mmol/L Potassium 4.4 (3.6-5.0) mmol/L Chloride 99.7 (98-107) mmol/L Carbon Dioxide 29 (22-30) mmol/L BUN 11 (7-17) mg/dL Creatinine 0.4 L (0.7-1.2) mg/dL Glucose 96 (65-100) mg/dL Calcium 9.1 (8.4-10.2) mg/dL
[2018-03-04] MEDS: TYLENOL PO PRN (15:02)
[2018-03-04] MEDS ORDERED: TPN ADULT 1,999.92 ML IV SCH (20:00)
[2018-03-04] MEDS: VANCOMYCIN 1,750 MG in NACL 0.9% 500 ML 500 ML IV SCH (21:00)
--- NOTE | 2018-03-05 06:06 | Progress Note ---
Assessment and Plan - Patient Problems (1) Acute encephalopathy Current Visit: Yes Status: Acute Plan to address problem: Secondary to sepsis and UTI (2) Sepsis Current Visit: Yes Status: Acute Qualifiers: Sepsis type: sepsis due to unspecified organism Qualified Code(s): A41.9 - Sepsis, unspecified organism Plan to address problem: Sepsis secondary to urinary tract infection and possible pneumonia Resolved On Vancomycin for Staph Epidermidis (3) UTI (urinary tract infection) Current Visit: Yes Status: Acute Qualifiers: Urinary tract infection type: acute cystitis Plan to address problem: Resolved (4) Pneumonia Current Visit: Yes Status: Acute Qualifiers: Pneumonia type: aspiration pneumonia Laterality: left Lung location: lower lobe of lung Plan to address problem: Possible aspiration Resolved (5) Hypernatremia Current Visit: Yes Status: Acute Plan to address problem: Resolved D/c IV D5w (6) Cerebrovascular accident Current Visit: Yes Status: Chronic Qualifiers: CVA mechanism: unspecified Qualified Code(s): I63.9 - Cerebral infarction, unspecified Plan to address problem: Supportive care (7) PEG tube malfunction Current Visit: Yes Status: Chronic Plan to address problem: Start tube feeds tomorrow. start slow and gradually increase. Would check residuals every 4 hours to make sure excess pressure is not building up. 2) Continue dressing changes to fistula tract until healed. (8) Atrial fibrillation with RVR Current Visit: Yes Status: Acute Plan to address problem: Stable rhythm (9) DVT prophylaxis Current Visit: Yes Status: Acute Plan to address problem: Lovenox 40 mg subcutaneous daily and GI prophylaxis (10) Full code status Current Visit: Yes Status: Acute Plan to address problem: Discussed DO NOT RESUSCITATE but patient's wants everything to be done (11) Discharge planning issues Current Visit: Yes Status: Acute Subjective Date of service: 03/04/18 Principal diagnosis: malfunctioning PEG Interval history: 52-year-old -[place] female with history of subdural hematoma and cerebrovascular accident was baseline is aphasic and dysphagia admitted for sepsis and UTI. Patient has a PEG tube which was malfunctioning and was removed. The PEG tube hole is healing and still draining some gastric fluid. Patient is apparently on TPN as per the . CODE STATUS was discussed. wants her to be full code. Patient is being treated for sepsis urinary tract infection and hypernatremia Peg tube feedings stared Objective - Exam Narrative Exam: Patient is aphasic - Constitutional Vitals: Vital Signs - 12hr 03/04/18 03/04/18 03/04/18 19:37 19:38 21:10 Temperature Pulse Rate 108 H Pulse Rate [ 108 H From Monitor] Respiratory 18 Rate Blood Pressure [Left] O2 Sat by Pulse 100 Oximetry 03/05/18 01:23 Temperature 98.6 F Pulse Rate 96 H Pulse Rate [ From Monitor] Respiratory 20 Rate Blood Pressure 97/56 [Left] O2 Sat by Pulse 98 Oximetry General appearance: Present: no acute distress - EENT Eyes: PERRL, EOM intact ENT: hearing intact, clear oral mucosa Ears: bilateral: normal - Neck Neck: supple, normal ROM - Respiratory Respiratory effort: normal Respiratory: bilateral: CTA - Breasts Breasts: normal - Cardiovascular Rhythm: regular Heart Sounds: Present: S1 & S2. Absent: gallop, rub Extremities: pulses intact, No edema, normal color, Full ROM - Gastrointestinal General gastrointestinal: Present: soft, non-tender, non-distended, normal bowel sounds, other (Peg in place ) - Genitourinary Female genitourinary: normal - Integumentary Integumentary: clear, warm, dry - Musculoskeletal Musculoskeletal: 1, strength equal bilaterally - Neurologic Neurologic: moves all extremities - Psychiatric Psychiatric: memory intact, appropriate mood/affect, intact judgment & insight - Labs CBC & Chem 7: 03/03/18 05:50 03/04/18 Unknown Labs: Abnormal lab results 03/04/18 03/04/18 03/04/18 Range/Units 11:44 16:40 Unknown Creatinine 0.4 L (0.7-1.2) mg/dL POC Glucose 120 H 126 H (70-105)
[2018-03-05 07:03] LABS: BUN/Creatinine Ratio 33; Blood Urea Nitrogen 10 mg/dL (7-17); Calcium 8.9 mg/dL (8.4-10.2); Hemolysis Index 0
[2018-03-05] MEDS: LOPRESSOR PO SCH ×2 (11:23→21:33)
[2018-03-05] MEDS: PROTONIX IV SCH (11:23)
[2018-03-05] MEDS: COZAAR PO SCH (11:24)
[2018-03-05] MEDS ORDERED: PANCREAZE DR 10,500 UNIT FEEDTUBE PRN ×2 (11:35→13:35)
[2018-03-05] MEDS ORDERED: SIMPLE SYRUP FEEDTUBE PRN ×4 (11:35→13:35)
[2018-03-05] MEDS ORDERED: SODIUM BICARBONATE FEEDTUBE PRN ×2 (11:35→13:35)
--- NOTE | 2018-03-05 14:48 | Progress Note ---
Assessment and Plan /Sepsis on Admission: - evidenced by leukocytosis, fever and tachycardia. - due to bacteremia with Staph Epidermis, 4 out of 4 bottles. Source most likely PICC line, U/A also consistent with UTI. - cont abx, vancomycin till 03/09/18, TTE negative /Coag negative Staph Bacteremia: - source most likely [place] PICC line which was placed for TPN to help heal gastric fistula. - on vancomycim and order follow up cultures to ensure clearance. - removed existing PICC and placed a new one in the left arm. / Acquired Gastric Fistula: - Peg tube malfunction- s/p division of gastric cutaneous fistula 02/27/18 - if tolerates TF will d/c TPN / UTI: U/A consistent with UTI. Neurogenic bladder with chronic indwelling catheter. 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 In addition, there was evidence of UTI , CXR showed Hazy opacity left lung base concerning for atelactasis pneumonia. Her blood cx grew Stah epi, likely from her PICC line which was placed for TPN. She was also found to have a drainage along with the PEG tube. 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 Per family, patient had old PEG tube, which was removed as it was infected, leaving an abdominal wall opening, which did not heal well. She had a new PEG tube placed at a different site about 1-2 months ago at [facility]. She has been placed on TPN while allowing for the old PEG tube site to heal. GS was consulted and she required division of gastric cutaneous fistula on 02/27/18 for continuous gastric content leakage from the fistula . Her PICC line also replaced. Plan to start TF and monitor for leakage. Need vancomycin till 03/09/18. Radiological study: Imaging 02/19/18 Chest xray: Hazy opacity left lung base concerning for atelectasis vis pneumonia 02/21/18 - CT Abdomen/Pelvis: Metal artifact from right Hip arthroplast and IVC Filter. Current PEG tube with distal tip in anterior mid stomach. Previous PEG tube tract slightly more lateral with adjacent fat stranding. This may reflect edema, inflammation, or infection. No fluid collection to suggest abscess. Hospitalist Physical Gen: obese, nonverbal, chronically vegetative state, HEENT: NCAT, EOMI, PERRL, OP and mm dry Neck: supple, no adenopathy, no thyromegaly, no JVD CVS/Heart: Regular tachycardia normal S1S2, pulses present bilaterally Chest/Lungs: diminished bs bilateral Symmetrical chest expansion, good air entry bilaterally GI/Abdomen: PEG on place, +bowel sounds, no guarding or rebound /Bladder: mobley in place Extermity/Skin: leg atrophic, foot drop bilaterally MSK: no FROM x 4 Neuro: doesn't follow commands, aphasic Psych: unresponsive to verbal commend Subjective Date of service: 03/05/18 Principal diagnosis: malfunctioning PEG Interval history: Pt seen and examined, non verbal No acute issue O/N Objective - Constitutional Vitals: Vital Signs - 12hr 03/05/18 03/05/18 03/05/18 06:00 08:27 11:23 Temperature 99.4 F Pulse Rate 107 H 109 H Respiratory 18 Rate Blood Pressure 111/63 Blood Pressure 105/67 [Left] O2 Sat by Pulse 100 98 Oximetry 03/05/18 03/05/18 11:24 12:36 Temperature 97.8 F Pulse Rate 10 L 110 H Respiratory 20 Rate Blood Pressure 111/63 Blood Pressure 111/63 [Left] O2 Sat by Pulse 98 Oximetry - Labs CBC & Chem 7: 03/03/18 05:50 03/06/18 04:51 Labs: Abnormal lab results 03/04/18 03/05/18 03/05/18 Range/Units 16:40 06:30 07:13 Creatinine 0.3 L (0.7-1.2) mg/dL Glucose 108 H (65-100) mg/dL POC Glucose 126 H 125 H (70-105) Triglycerides 150 H (2-149) mg/dL 03/05/18 Range/Units 11:23 Creatinine (0.7-1.2) mg/dL Glucose (65-100) mg/dL POC Glucose 126 H (70-105) Triglycerides (2-149) mg/dL
[2018-03-05] MEDS ORDERED: TPN ADULT 1,999.92 ML IV SCH (20:00)
[2018-03-05] MEDS: VANCOMYCIN 1,750 MG in NACL 0.9% 500 ML 500 ML IV SCH (21:00)
[2018-03-06 06:08] LABS: BUN/Creatinine Ratio 37; Blood Urea Nitrogen 11 mg/dL (7-17); Hemolysis Index 24
--- NOTE | 2018-03-06 08:31 | Progress Note ---
Assessment and Plan - Patient Problems (1) Acquired gastric fistula Current Visit: Yes Status: Acute Plan to address problem: Pt stable. s/p division of fistula tract - 02/28/18 - POD#6. No drainage from tract site. Appears to be tolerating tube feeds. Rec: 1) Advance tube feeds to goal as tolerated. 2) Continue dressing changes to fistula tract until healed. Please call with questions. Subjective Date of service: 03/06/18 Patient Reports: Positive: other (no reports of intolerance to tube feeds) Objective Vital Signs - 12hr 03/05/18 03/06/18 03/06/18 23:30 05:12 05:32 Temperature 99.6 F 98.5 F Pulse Rate 103 H 108 H 113 H Respiratory 22 22 Rate Blood Pressure 92/51 122/85 O2 Sat by Pulse 99 100 Oximetry 03/06/18 08:07 Temperature Pulse Rate Respiratory Rate Blood Pressure O2 Sat by Pulse 100 Oximetry - General physical appearance no distress, no pain - Respiratory normal expansion, normal respiratory effort - Abdomen soft, not tender, bowel sounds hypoactive, not distended, not guarding, not rigid, other (fistula wound dressing dry) - Labs 03/03/18 05:50 03/06/18 04:51 Diabetes panel 03/05/18 03/06/18 Range/Units 06:30 04:51 Sodium 138 (137-145) mmol/L Potassium 4.7 (3.6-5.0) mmol/L Chloride 102.3 (98-107) mmol/L Carbon Dioxide 25 (22-30) mmol/L BUN 11 (7-17) mg/dL Creatinine 0.3 L (0.7-1.2) mg/dL Glucose 103 H (65-100) mg/dL Calcium 9.0 (8.4-10.2) mg/dL Triglycerides 150 H (2-149) mg/dL Calcium panel 03/06/18 Range/Units 04:51 Calcium 9.0 (8.4-10.2) mg/dL Phosphorus 4.10 (2.5-4.5) mg/dL Pituitary panel 03/06/18 Range/Units 04:51 Sodium 138 (137-145) mmol/L Potassium 4.7 (3.6-5.0) mmol/L Chloride 102.3 (98-107) mmol/L Carbon Dioxide 25 (22-30) mmol/L BUN 11 (7-17) mg/dL Creatinine 0.3 L (0.7-1.2) mg/dL Glucose 103 H (65-100) mg/dL Calcium 9.0 (8.4-10.2) mg/dL Adrenal panel 03/06/18 Range/Units 04:51 Sodium 138 (137-145) mmol/L Potassium 4.7 (3.6-5.0) mmol/L Chloride 102.3 (98-107) mmol/L Carbon Dioxide 25 (22-30) mmol/L BUN 11 (7-17) mg/dL Creatinine 0.3 L (0.7-1.2) mg/dL Glucose 103 H (65-100) mg/dL Calcium 9.0 (8.4-10.2) mg/dL
--- NOTE | 2018-03-06 08:32 | Progress Note ---
Assessment and Plan Imaging 02/19/18 Chest xray: Hazy opacity left lung base concerning for atelectasis vis pneumonia 02/21/18 - CT Abdomen/Pelvis: Metal artifact from right Hip arthroplast and IVC Filter. Current PEG tube with distal tip in anterior mid stomach. Previous PEG tube tract slightly more lateral with adjacent fat stranding. This may reflect edema, inflammation, or infection. No fluid collection to suggest abscess. Cultures 02/19/2018 Blood; Staph.epidermis, 4 out of 4 bottles 02/23/2018 Blood: No growth thus far A/P: 1. Sepsis on Admission: leukocytosis continuing. fevers resolved. Staph Epidermis, 4 out of 4 bottles. Source most likely PICC line, U/A consistent with UTI. 2. CoNS Bacteremia: source most likely [place] PICC line. Will treat with vancomycim and order follow up cultures to ensure clearance. New PICC line left arm. TTE negative 3. 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 Tolerating tube feedings. 4. UTI: U/A consistent with UTI. Neurogenic bladder with chronic indwelling catheter. 5. 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 Plan: -Continue Vancomycin to 03/09/18 -Continue to monitor leukocytosis -repeat chest xray in light of leukocytosis [facility] M: [id number] O:[phone] Subjective Date of service: 03/06/18 Principal diagnosis: malfunctioning PEG Interval history: Patient seen and examined, non verbal at baseline. No family at bedside. Nurse notes, labs and reports reviewed. Objective - Exam Narrative Exam: Constitutional: Somnolent, traumtic brain subdural hemorhage, nonverbal . No acute distress Head, Ears, Nose: Normocephalic, atraumatic. External ears, nose normal Eyes: Conjunctivae/corneas clear. No icterus. No ptosis. Neck: Supple, no meningeal signs Oral: unable to assess Cardiovascular: S1, S2 normal. Respiratory: Good air entry, clear to auscultation bilaterally GI: +Gastric fistula Musculoskeletal: No pedal edema, no cyanosis. Skin: No rash or abscess. Hem/Lymphatic: No palpable cervical or supraclavicular nodes. No lymphangitis Psych: Mood : somnolent Neurological: somnolent Lines; left PICC - Constitutional Vitals: Vital Signs Temp Pulse Resp BP Pulse Ox 98.5 F 113 H 22 122/85 100 03/06/18 05:12 03/06/18 05:32 03/06/18 05:12 03/06/18 05:12 03/06/18 08:07 Temperature -Last 24 Hours Temperature 98.5 F Temperature 99.6 F Temperature 97.9 F Temperature 97.8 F - Labs CBC & Chem 7: 03/03/18 05:50 03/06/18 04:51 Labs: Abnormal lab results 03/05/18 03/05/18 03/05/18 Range/Units 06:30 11:23 17:16 Creatinine (0.7-1.2) mg/dL Glucose (65-100) mg/dL POC Glucose 126 H 137 H (70-105) Triglycerides 150 H (2-149) mg/dL 03/05/18 03/06/18 03/06/18 Range/Units 23:59 04:51 06:56 Creatinine 0.3 L (0.7-1.2) mg/dL Glucose 103 H (65-100) mg/dL POC Glucose 125 H 112 H (70-105) Triglycerides (2-149) mg/dL
[2018-03-06] MEDS ORDERED: SODIUM BICARBONATE FEEDTUBE PRN ×2 (10:16→10:19)
[2018-03-06] MEDS ORDERED: SIMPLE SYRUP FEEDTUBE PRN ×4 (10:16→10:19)
[2018-03-06] MEDS ORDERED: PANCREAZE DR 10,500 UNIT FEEDTUBE PRN ×2 (10:16→10:19)
[2018-03-06] MEDS: COZAAR PO SCH (12:43)
[2018-03-06] MEDS: PREVACID SOLUTAB FEEDTUBE SCH (12:43)
[2018-03-06] MEDS: LOPRESSOR PO SCH ×2 (12:43→23:29)
[2018-03-06 14:30] LABS: Hematocrit 23.5 % (30.3-42.9); Hemoglobin 7.4 gm/dl (10.1-14.3); Mean Corpuscular HGB Conc 32 % (30-34); Platelet Count 332 K/mm3 (140-440); Red Blood Count 4.03 M/mm3 (3.65-5.03)
[2018-03-06 14:40] LABS: Mean Corpuscular Volume 58 fl (79-97)
[2018-03-06 15:22] LABS: Total Cells Counted 100
[2018-03-06 15:23] LABS: Anisocytosis 2+; Basophils % (Manual) 0 % (0.0-1.8); Eosinophils % (Manual) 0 % (0.0-4.3); Hypochromasia 2+; Poikilocytosis 1+; Target Cells 1+
--- NOTE | 2018-03-06 16:31 | Progress Note ---
Assessment and Plan /Sepsis on Admission: - evidenced by leukocytosis, fever and tachycardia. - due to bacteremia with Staph Epidermis, 4 out of 4 bottles. Source most likely PICC line, U/A also consistent with UTI. - cont abx, vancomycin till 03/09/18, TTE negative /Coag negative Staph Bacteremia: - source most likely Indweling PICC line which was placed for TPN to help heal gastric fistula. - on vancomycim and order follow up cultures to ensure clearance. - removed existing PICC and placed a new one in the left arm. 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 Neurogenic bladder with chronic indwelling cath eter. 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 In addition, there was evidence of UTI , CXR showed Hazy opacity left lung base concerning for atelactasis pneumonia. Her blood cx grew Stah epi, likely from her PICC line which was placed for TPN. She was also found to have a drainage along with the PEG tube. 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 Per family, patient had old PEG tube, which was removed as it was infected, leaving an abdominal wall opening, which did not heal well. She had a new PEG tube placed at a different site about 1-2 months ago at [facility]. She has been placed on TPN while allowing for the old PEG tube site to heal. GS was co nsulted and she required division of gastric cutaneous fistula on 02/27/18 for continuous gastric content leakage from the fistula . Her PICC line also replaced. started on TF and monitor for leakage. Need vancomycin till 03/09/18. Radiological study: Imaging 02/19/18 Chest xray: Hazy opacity left lung base concerning for atelectasis vis pneumonia 02/21/18 - CT Abdomen/Pelvis: Metal artifact from right Hip arthroplast and IVC Filter. Current PEG tube with distal tip in anterior mid stomach. Previous PEG tube tract slightly more lateral with adjacent fat stranding. This may reflect edema, inflammation, or infection. No fluid collection to suggest abscess. Hospitalist Physical Gen: obese, nonverbal, chronically vegetative state, HEENT: NCAT, EOMI, PERRL, OP and mm dry Neck: supple, no adenopathy, no thyromegaly, no JVD CVS/Heart: Regular tachycardia normal S1S2, pulses present bilaterally Chest/Lungs: diminished bs bilateral Symmetrical chest expansion, good air entry bilaterally GI/Abdomen: PEG on place, +bowel sounds, no guarding or rebound /Bladder: mobley in place Extermity/Skin: leg atrophic, foot drop bilaterally MSK: no FROM x 4 Neuro: doesn't follow commands, aphasic Psych: unresponsive to verbal commend Subjective Date of service: 03/06/18 Principal diagnosis: malfunctioning PEG Interval history: Pt seen and examined, non verbal No acute issue O/N Started on TF, also on TPN Objective - Constitutional Vitals: Vital Signs - 12hr 03/06/18 03/06/18 03/06/18 05:12 05:32 08:07 Temperature 98.5 F Pulse Rate 108 H 113 H Respiratory 22 Rate Blood Pressure 122/85 O2 Sat by Pulse 100 100 Oximetry 03/06/18 12:07 Temperature 99.5 F Pulse Rate 121 H Respiratory 18 Rate Blood Pressure 125/63 O2 Sat by Pulse 99 Oximetry - Labs CBC & Chem 7: 03/07/18 10:55 03/06/18 04:51 Labs: Abnormal lab results 03/05/18 03/05/18 03/06/18 Range/Units 17:16 23:59 04:51 WBC (4.5-11.0) K/mm3 Hgb (10.1-14.3) gm/dl Hct (30.3-42.9) % MCV (79-97) fl MCH (28-32) pg RDW (13.2-15.2) % Seg Neuts % (Manual) (40.0-70.0) % Lymphocytes % (Manual) (13.4-35.0) % Seg Neutrophils # Man (1.8-7.7) K/mm3 Creatinine 0.3 L (0.7-1.2) mg/dL Glucose 103 H (65-100) mg/dL POC Glucose 137 H 125 H (70-105) 03/06/18 03/06/18 03/06/18 Range/Units 06:56 13:30 16:13 WBC 13.1 H (4.5-11.0) K/mm3 Hgb 7.4 L (10.1-14.3) gm/dl Hct 23.5 L (30.3-42.9) % MCV 58 L (79-97) fl MCH 18 L (28-32) pg RDW 28.0 H (13.2-15.2) % Seg Neuts % (Manual) 84.0 H (40.0-70.0) % Lymphocytes % (Manual) 12.0 L (13.4-35.0) % Seg Neutrophils # Man 11.0 H (1.8-7.7) K/mm3 Creatinine (0.7-1.2) mg/dL Glucose (65-100) mg/dL POC Glucose 112 H 129 H (70-105)
--- NOTE | 2018-03-06 16:53 | XRay Report ---
FINAL REPORT EXAM: XR CHEST 1V AP HISTORY: leukocytosis TECHNIQUE: Frontal portable view of the chest Comparison: Chest x-ray dated February 19, 2018 FINDINGS: Evaluation of portions of the lung bases is limited by overlapping mechanical/monitoring device. The right-sided PICC line has been removed. A left-sided PICC line has been placed with the tip projected in the region of the superior vena cava . There is no definite evidence of infiltrate, pneumothorax or pleural fluid collection. However, a sma ll infiltrate could be missed. The cardiac silhouette is enlarged similar in appearance to the previous study. The thoracic aorta is unremarkable. There appear to be calcified lymph nodes in the right hilar and subcarinal region. The bony structures are unremarkable. IMPRESSION: 1. No definite evidence of an acute pulmonary process. However, a small infiltrate could be missed du e to artifact. 2. Tip of left-sided PICC line projected in the region of the superior vena cava.
[2018-03-06] MEDS ORDERED: TPN ADULT 1,800 ML IV SCH (20:00)
[2018-03-06] MEDS: VANCOMYCIN 1,750 MG in NACL 0.9% 500 ML 500 ML IV SCH (23:33)
--- NOTE | 2018-03-07 08:57 | Progress Note ---
Assessment and Plan Imaging 02/19/18 Chest xray: Hazy opacity left lung base concerning for atelectasis vis pneumonia 02/21/18 - CT Abdomen/Pelvis: Metal artifact from right Hip arthroplast and IVC Filter. Current PEG tube with distal tip in anterior mid stomach. Previous PEG tube tract slightly more lateral with adjacent fat stranding. This may reflect edema, inflammation, or infection. No fluid collection to suggest abscess. Cultures 02/19/2018 Blood; Staph.epidermis, 4 out of 4 bottles 02/23/2018 Blood: No growth thus far 03/07/18 Blood: in progress A/P: 1. Sepsis on Admission: leukocytosis trending down. Spiking fevers. Staph Epidermis, 4 out of 4 bottles. Source most likely PICC line, U/A consistent with UTI. 03/07/17 repeat chest xray - There is no definite evidence of infiltrate, pneumothorax or pleural fluid collection. However, a small infiltrate could be missed. 2. CoNS Bacteremia: source most likely Indweling PICC line. Will treat with vancomycim and order follow up cultures to ensure clearance. New PICC line left arm. TTE negative 3. 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 Tolerating tube feedings. 4. UTI: U/A consistent with UTI. Neurogenic bladder with chronic indwelling catheter. 5. 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 Plan: -Continue Vancomycin to 03/09/18 -Continue to monitor leukocytosis -f/u repeat blood cultures - Renal ultrasound to evaulate hydronephrosis ordered - U/A and urine culture to evaluate if gram negative coverage is needed Clementina Swanson NP [facility] M: [phone] O:[phone] Subjective Date of service: 03/07/18 Principal diagnosis: malfunctioning PEG Interval history: Patient seen and examined, non verbal at baseline. Spiking fevers. No family at bedside. Nurse notes, labs and reports reviewed. Objective - Constitutional Vitals: Vital Signs Temp Pulse Resp BP Pulse Ox 98.0 F 116 H 20 102/62 94 03/07/18 05:10 03/06/18 23:29 03/07/18 05:10 03/07/18 05:10 03/07/18 08:45 Temperature -Last 24 Hours Temperature 98.0 F Temperature 99.1 F Temperature 100.4 F Temperature 99.5 F - Labs CBC & Chem 7: 03/07/18 10:55 03/06/18 04:51 Labs: Abnormal lab results 03/06/18 03/06/18 03/07/18 Range/Units 13:30 16:13 00:22 WBC 13.1 H (4.5-11.0) K/mm3 Hgb 7.4 L (10.1-14.3) gm/dl Hct 23.5 L (30.3-42.9) % MCV 58 L (79-97) fl MCH 18 L (28-32) pg RDW 28.0 H (13.2-15.2) % Seg Neuts % (Manual) 84.0 H (40.0-70.0) % Lymphocytes % (Manual) 12.0 L (13.4-35.0) % Seg Neutrophils # Man 11.0 H (1.8-7.7) K/mm3 POC Glucose 129 H 116 H (70-105) 03/07/18 Range/Units 07:05 WBC (4.5-11.0) K/mm3 Hgb (10.1-14.3) gm/dl Hct (30.3-42.9) % MCV (79-97) fl MCH (28-32) pg RDW (13.2-15.2) % Seg Neuts % (Manual) (40.0-70.0) % Lymphocytes % (Manual) (13.4-35.0) % Seg Neutrophils # Man (1.8-7.7) K/mm3 POC Glucose 110 H (70-105)
[2018-03-07] MEDS: COZAAR PO SCH (10:07)
[2018-03-07] MEDS: LOPRESSOR PO SCH ×2 (10:07→23:52)
[2018-03-07] MEDS: PREVACID SOLUTAB FEEDTUBE SCH (10:08)
[2018-03-07 11:23] LABS: Hematocrit 22.4 % (30.3-42.9); Hemoglobin 6.9 gm/dl (10.1-14.3); Mean Corpuscular HGB Conc 31 % (30-34); Platelet Count 327 K/mm3 (140-440); Red Blood Count 3.86 M/mm3 (3.65-5.03)
[2018-03-07 11:25] LABS: Mean Corpuscular Volume 58 fl (79-97); Red Cell Distribution Width 27.7 % (13.2-15.2)
[2018-03-07 12:35] LABS: Anisocytosis 3+; Band Neutrophils # (Manual) 0.2 K/mm3; Basophils % (Manual) 0 % (0.0-1.8); Hypochromasia 2+; Platelet Estimate Consistent w Auto; Total Cells Counted 100
--- NOTE | 2018-03-07 14:35 | Progress Note ---
Assessment and Plan /Sepsis on Admission: - evidenced by leukocytosis, fever and tachycardia. - due to bacteremia with Staph Epidermis, 4 out of 4 bottles. Source most likely PICC line, U/A also consistent with UTI. - cont abx, vancomycin till 03/09/18, TTE negative /Coag negative Staph Bacteremia: - source most likely Indweling PICC line which was placed for TPN to help heal gastric fistula at OSH. - on vancomycim and blood cx negative since 02/23/18 - removed existing PICC and placed a new one in the left arm. 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 Neurogenic bladder with chronic indwelling catheter. 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 In addition, there was evidence of UTI , CXR showed Hazy opacity left lung base concerning for atelactasis pneumonia. Her blood cx grew Stah epi, likely from her PICC line which was placed for TPN. She was also found to have a drainage along with the PEG tube. 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 Per family, patient had old PEG tube, which was removed as it was infected, leaving an abdominal wall opening, which did not heal well. She had a new PEG tube placed at a different site about 1-[address] [facility]. She has been placed on TPN while allowing for the old PEG tube site to heal. GS was consulted and she required division of gastric cutaneous fistula on 02/27/18 for continuous gastric content leakage from the fistula . Her PICC line also replaced. started on TF and monitor for leakage. Need vancomycin till 03/09/18. Radiological study: Imaging 02/19/18 Chest xray: Hazy opacity left lung base concerning for atelectasis vis pneumonia 02/21/18 - CT Abdomen/Pelvis: Metal artifact from right Hip arthroplast and IVC Filter. Current PEG tube with distal tip in anterior mid stomach. Previous PEG tube tract slightly more lateral with adjacent fat stranding. This may reflect edema, inflammation, or infection. No fluid collection to suggest abscess. Hospitalist Physical Gen: obese, nonverbal, chronically vegetative state, HEENT: NCAT, EOMI, PERRL, OP and mm dry Neck: supple, no adenopathy, no thyromegaly, no JVD CVS/Heart: Regular tachycardia normal S1S2, pulses present bilaterally Chest/Lungs: diminished bs bilateral Symmetrical chest expansion, good air entry bilaterally GI/Abdomen: PEG on place, +bowel sounds, no guarding or rebound /Bladder: mobley in place Extermity/Skin: leg atrophic, foot drop bilaterally MSK: no FROM x 4 Neuro: doesn't follow commands, aphasic Psych: unresponsive to verbal commend Subjective Date of service: 03/07/18 Principal diagnosis: malfunctioning PEG Interval history: Pt seen and examined, non verbal No acute issue O/N Started on TF, also on TPN family at bedside, updated Objective - Constitutional Vitals: Vital Signs - 12hr 03/07/18 03/07/18 03/07/18 05:10 08:45 12:57 Temperature 98.0 F 98.1 F Pulse Rate 114 H Respiratory 20 16 Rate Blood Pressure 102/62 94/63 O2 Sat by Pulse 94 100 Oximetry - Labs CBC & Chem 7: 03/07/18 10:55 03/06/18 04:51 Labs: Abnormal lab results 03/06/18 03/06/18 03/07/18 Range/Units 13:30 16:13 00:22 WBC 13.1 H (4.5-11.0) K/mm3 Hgb 7.4 L (10.1-14.3) gm/dl Hct 23.5 L (30.3-42.9) % MCV 58 L (79-97) fl MCH 18 L (28-32) pg RDW 28.0 H (13.2-15.2) % Seg Neuts % (Manual) 84.0 H (40.0-70.0) % Lymphocytes % (Manual) 12.0 L (13.4-35.0) % Seg Neutrophils # Man 11.0 H (1.8-7.7) K/mm3 Lymphocytes # (Manual) (1.2-5.4) K/mm3 POC Glucose 129 H 116 H (70-105) 03/07/18 03/07/18 03/07/18 Range/Units 07:05 10:55 11:31 WBC 11.3 H (4.5-11.0) K/mm3 Hgb 6.9 L (10.1-14.3) gm/dl Hct 22.4 L (30.3-42.9) % MCV 58 L (79-97) fl MCH 18 L (28-32) pg RDW 27.7 H (13.2-15.2) % Seg Neuts % (Manual) 86.0 H (40.0-70.0) % Lymphocytes % (Manual) 6.0 L (13.4-35.0) % Seg Neutrophils # Man 9.7 H (1.8-7.7) K/mm3 Lymphocytes # (Manual) 0.7 L (1.2-5.4) K/mm3 POC Glucose 110 H 106 H (70-105)
[2018-03-07 15:03] LABS: Bacteria,Urine 1+ /HPF (Negative); Bilirubin,Urine NEG (Negative); Blood,Urine LG (Negative); Color,Urine Yellow (Yellow); Urobilinogen,Urine < 2.0 mg/dL (<2.0)
[2018-03-07 15:04] LABS: RBC,Urine > 182.0 /HPF (0.0-6.0)
[2018-03-07] MEDS: VANCOMYCIN 1,750 MG in NACL 0.9% 500 ML 500 ML IV SCH (18:51)
[2018-03-08] MEDS ORDERED: SIMPLE SYRUP FEEDTUBE PRN ×2 (09:36)
[2018-03-08] MEDS ORDERED: SODIUM BICARBONATE FEEDTUBE PRN (09:36)
[2018-03-08] MEDS ORDERED: PANCREAZE DR 10,500 UNIT FEEDTUBE PRN (09:36)
--- NOTE | 2018-03-08 09:44 | Progress Note ---
Assessment and Plan Imaging 02/19/18 Chest xray: Hazy opacity left lung base concerning for atelectasis vis pneumonia 02/21/18 - CT Abdomen/Pelvis: Metal artifact from right Hip arthroplast and IVC Filter. Current PEG tube with distal tip in anterior mid stomach. Previous PEG tube tract slightly more lateral with adjacent fat stranding. This may reflect edema, inflammation, or infection. No fluid collection to suggest abscess. Cultures 02/19/2018 Blood; Staph.epidermis, 4 out of 4 bottles 02/23/2018 Blood: No growth thus far 03/07/18 Blood: in progress A/P: 1. Sepsis on Admission: leukocytosis trending down. Fevers continuing. Staph Epidermis, 4 out of 4 bottles. Source most likely PICC line, U/A consistent with UTI. 03/07/17 repeat chest xray - There is no definite evidence of infiltrate, pneumothorax or pleural fluid collection. However, a small infiltrate could be missed. 2. CoNS Bacteremia: source most likely Indweling PICC line. Will treat with vancomycim and order follow up cultures to ensure clearance. New PICC line left arm. TTE negative 3. 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 Tolerating tube feedings. 4. UTI: U/A consistent with UTI. Neurogenic bladder with chronic indwelling catheter. RPT U/A shows continued pyuria, will start Cefepime for gram negative coverage. 5. 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 Plan: -Continue Vancomycin to 03/09/18 -Continue to monitor leukocytosis -f/u repeat blood cultures - f/u renal ultrasound to evaluate hydronephrosis -Start Cefepime 2gms every 12 hours for gram negative coverage -f/u urine culture -CBC ordered for tomorrow Clementina Swanson NP [facility] M: [phone] O:[phone] Subjective Date of service: 03/08/18 Principal diagnosis: malfunctioning PEG Interval history: Patient seen and examined, non verbal at baseline. Fevers continuing. No family at bedside. Nurse notes, labs and reports reviewed. Objective - Exam Narrative Exam: Constitutional: Somnolent, traumtic brain subdural hemorhage, nonverbal . No acute distress Head, Ears, Nose: Normocephalic, atraumatic. External ears, nose normal Eyes: Conjunctivae/corneas clear. No icterus. No ptosis. Neck: Supple, no meningeal signs Oral: unable to assess Cardiovascular: S1, S2 normal. Respiratory: Good air entry, clear to auscultation bilaterally GI: +Gastric fistula : +purewick external catheter Musculoskeletal: No pedal edema, no cyanosis. Skin: No rash or abscess. Hem/Lymphatic: No palpable cervical or supraclavicular nodes. No lymphangitis Psych: Mood : somnolent Neurological: somnolent Lines; left PICC - Constitutional Vitals: Vital Signs Temp Pulse Resp BP Pulse Ox 100.2 F H 117 H 20 104/40 99 03/08/18 04:20 03/08/18 04:20 03/08/18 04:20 03/08/18 04:20 03/08/18 08:34 Temperature -Last 24 Hours Temperature 100.2 F Temperature 99.6 F Temperature 98.0 F Temperature 98.1 F - Labs CBC & Chem 7: 03/07/18 10:55 03/06/18 04:51 Labs: Abnormal lab results 03/07/18 03/07/18 03/07/18 Range/Units 10:55 11:31 14:30 WBC 11.3 H (4.5-11.0) K/mm3 Hgb 6.9 L (10.1-14.3) gm/dl Hct 22.4 L (30.3-42.9) % MCV 58 L (79-97) fl MCH 18 L (28-32) pg RDW 27.7 H (13.2-15.2) % Seg Neuts % (Manual) 86.0 H (40.0-70.0) % Lymphocytes % (Manual) 6.0 L (13.4-35.0) % Seg Neutrophils # Man 9.7 H (1.8-7.7) K/mm3 Lymphocytes # (Manual) 0.7 L (1.2-5.4) K/mm3 POC Glucose 106 H (70-105) Urine pH 9.0 H (5.0-7.0) Urine WBC (Auto) 52.0 H (0.0-6.0) /HPF
[2018-03-08] MEDS: LOPRESSOR PO SCH ×2 (09:58→22:40)
[2018-03-08] MEDS: TYLENOL PO PRN (09:59)
[2018-03-08] MEDS: PREVACID SOLUTAB FEEDTUBE SCH (09:59)
[2018-03-08] MEDS: COZAAR PO SCH (10:00)
[2018-03-08] MEDS: MAXIPIME/NS 2 GM/100 ML 2 GM/100 ML BAG IV SCH ×3 (14:30→22:41)
[2018-03-08 14:34] LABS: Hematocrit 20.7 % (30.3-42.9); Hemoglobin 6.5 gm/dl (10.1-14.3); Mean Corpuscular HGB Conc 32 % (30-34); Platelet Count 279 K/mm3 (140-440); Red Blood Count 3.55 M/mm3 (3.65-5.03)
[2018-03-08 14:35] LABS: BUN/Creatinine Ratio 23; Blood Urea Nitrogen 9 mg/dL (7-17); Calcium 8.1 mg/dL (8.4-10.2); Hemolysis Index 0; Mean Corpuscular Volume 58 fl (79-97); Red Cell Distribution Width 27.7 % (13.2-15.2)
[2018-03-08] MEDS: VANCOMYCIN 1,750 MG in NACL 0.9% 500 ML 500 ML IV SCH (14:39)
[2018-03-08] MEDS ORDERED: NACL 0.9% 500 ML 500 ML IV ONE (18:07)
--- NOTE | 2018-03-08 18:11 | Progress Note ---
Assessment and Plan /Sepsis on Admission: - evidenced by leukocytosis, fever and tachycardia. - due to bacteremia with Staph Epidermis, 4 out of 4 bottles. Source most likely PICC line, U/A also consistent with UTI. - cont abx, vancomycin till 03/09/18 which is tomorrow, TTE negative /Coag negative Staph Bacteremia: - source most likely Indweling PICC line which was placed for TPN to help heal gastric fistula at OSH. - on vancomycim and blood cx negative since 02/23/18 - removed existing PICC and placed a new one in the left arm. 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 Neurogenic bladder with chronic indwelling catheter. 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 In addition, there was evidence of UTI , CXR showed Hazy opacity left lung base concerning for atelactasis pneumonia. Her blood cx grew Stah epi, likely from her PICC line which was placed for TPN. She was also found to have a drainage along with the PEG tube. 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 Per family, patient had old PEG tube, which was removed as it was infected, leaving an abdominal wall opening, which did not heal well. She had a new PEG tube placed at a different site about 1-2 months ago at [facility]. She has been placed on TPN while allowing for the old PEG tube site to heal. GS was consulted and she required division of gastric cutaneous fistula on 02/27/18 for continuous gastric content leakage from the fistula . Her PICC line also replaced. started on TF and monitor for leakage. Need vancomycin till 03/09/18. Radiological study: Imaging 02/19/18 Chest xray: Hazy opacity left lung base concerning for atelectasis vis pneumonia 02/21/18 - CT Abdomen/Pelvis: Metal artifact from right Hip arthroplast and IVC Filter. Current PEG tube with distal tip in anterior mid stomach. Previous PEG tube tract slightly more lateral with adjacent fat stranding. This may reflect edema, inflammation, or infection. No fluid collection to suggest abscess. Hospitalist Physical Gen: obese, nonverbal, chronically vegetative state, HEENT: NCAT, EOMI, PERRL, OP and mm dry Neck: supple, no adenopathy, no thyromegaly, no JVD CVS/Heart: Regular tachycardia normal S1S2, pulses present bilaterally Chest/Lungs: diminished bs bilateral Symmetrical chest expansion, good air entry bilaterally GI/Abdomen: PEG on place, +bowel sounds, no guarding or rebound /Bladder: mobley in place Extermity/Skin: leg atrophic, foot drop bilaterally MSK: no FROM x 4 Neuro: doesn't follow commands, aphasic Psych: unresponsive to verbal commend Subjective Date of service: 03/08/18 Principal diagnosis: malfunctioning PEG Interval history: Pt seen and examined, non verbal No acute issue O/N Started on TF, off TPN today Objective - Constitutional Vitals: Vital Signs - 12hr 03/08/18 03/08/18 03/08/18 08:34 09:58 12:33 Temperature 98.7 F Pulse Rate 117 H 89 Respiratory 19 Rate Blood Pressure 96/43 O2 Sat by Pulse 99 100 Oximetry - Labs CBC & Chem 7: 03/09/18 10:27 03/08/18 13:27 Labs: Abnormal lab results 03/08/18 03/08/18 Range/Units 13:27 13:27 RBC 3.55 L (3.65-5.03) M/mm3 Hgb 6.5 L (10.1-14.3) gm/dl Hct 20.7 L (30.3-42.9) % MCV 58 L (79-97) fl MCH 18 L (28-32) pg RDW 27.7 H (13.2-15.2) % Creatinine 0.4 L (0.7-1.2) mg/dL Calcium 8.1 L (8.4-10.2) mg/dL
--- NOTE | 2018-03-08 19:49 | Ultrasound Report ---
FINAL REPORT EXAM: US RENAL BILAT HISTORY: evaluate for hydronephrosis TECHNIQUE: Grayscale and color-flow imaging of the kidneys was performed. Comparison: CT abdomen and pelvis dated February 21, 2018 FINDINGS: The right kidney measures 10.5 centimeters x 5.2 centimeters x 4.2 centimeters with a cortical thickn ess measurement of 2 centimeters. The left kidney measures 9.9 centimeters x 4.9 centimeters x 5.4 centimeters with a cortical thicknes s measurement of 1.8 centimeters. Visualization detail of the left kidney is significantly limited by artifact created by large body habitus. There is demonstration of stones in the renal pelvis bilaterally as was demonstrated on the recent CT . There is no evidence of hydronephrosis on the right. There appears to be hydronephrosis, degree indeterminate, on the left. IMPRESSION: 1. Study degraded by artifact created by large body habitus. 2. Appearance of left hydronephrosis, degree indeterminate. 3. Bilateral renal stones.
[2018-03-09] MEDS ORDERED: NACL 0.9% 500 ML 500 ML ONE (03:42)
[2018-03-09] MEDS: VANCOMYCIN 1,750 MG in NACL 0.9% 500 ML 500 ML IV SCH (06:52)
[2018-03-09] MEDS: MAXIPIME/NS 2 GM/100 ML 2 GM/100 ML BAG IV SCH (09:14)
[2018-03-09] MEDS: LOPRESSOR PO SCH (09:15)
[2018-03-09] MEDS: COZAAR PO SCH (09:15)
[2018-03-09] MEDS: PREVACID SOLUTAB FEEDTUBE SCH (09:16)
--- NOTE | 2018-03-09 09:20 | Progress Note ---
Assessment and Plan Imaging 02/19/18 Chest xray: Hazy opacity left lung base concerning for atelectasis vis pneumonia 02/21/18 - CT Abdomen/Pelvis: Metal artifact from right Hip arthroplast and IVC Filter. Current PEG tube with distal tip in anterior mid stomach. Previous PEG tube tract slightly more lateral with adjacent fat stranding. This may reflect edema, inflammation, or infection. No fluid collection to suggest abscess. Cultures 02/19/2018 Blood; Staph.epidermis, 4 out of 4 bottles 02/23/2018 Blood: No growth thus far 03/07/18 Blood: No growth 03/07/2018 Urine: no growth A/P: 1. Sepsis on Admission: Resolved, Staph Epidermis, 4 out of 4 bottles. Source most likely PICC line, U/A consistent with UTI. 03/07/17 repeat chest xray - There is no definite evidence of infiltrate, pneumothorax or pleural fluid collection. However, a small in filtrate could be missed. 2. CoNS Bacteremia: source most likely Indweling PICC line. Will treat with vancomycim and order follow up cultures to ensure clearance. New PICC line left arm. TTE negative 3. 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 Tolerating tube feedings. 4. UTI: U/A consistent with UTI. Neurogenic bladder with chronic indwelling catheter. RPT U/A shows continued pyuria, will start Cefepime for gram negative coverage. Renal U/S- There is no evidence of hydronephrosis on the right. There appears to be hydronephrosis, degree indeterminate, on the left 5. 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 Plan: -Continue Vancomycin, last dose today -f/u repeat blood cultures - continue Cefepime 2gms every 12 hours for gram negative coverage -upon discharge can do Levaquin 500mg, PO for 3 days to cover UTI [facility] M: [phone] O:[phone] Subjective Date of service: 03/09/18 Principal diagnosis: malfunctioning PEG Interval history: Patient seen and examined, non verbal at baseline. Increased work of breathing. No family at bedside. Nurse notes, labs and reports reviewed. Objective - Exam Narrative Exam: Constitutional: Somnolent, traumtic brain subdural hemorhage, nonverbal . No acute distress Head, Ears, Nose: Normocephalic, atraumatic. External ears, nose normal Eyes: Conjunctivae/corneas clear. No icterus. No ptosis. Neck: Supple, no meningeal signs Oral: unable to assess Cardiovascular: S1, S2 normal. Respiratory: Good air entry, + increased WOB GI: +Gastric fistula : +purewick external catheter Musculoskeletal: No pedal edema, no cyanosis. Skin: No rash or abscess. Hem/Lymphatic: No palpable cervical or supraclavicular nodes. No lymphangitis Psych: Mood : somnolent Neurological: somnolent Lines; left PICC - Constitutional Vitals: Vital Signs Temp Pulse Resp BP Pulse Ox 99.4 F 105 H 18 123/53 98 03/09/18 06:16 03/09/18 06:16 03/09/18 06:16 03/09/18 06:16 03/09/18 06:16 Temperature -Last 24 Hours Temperature 99.4 F Temperature 99.8 F Temperature 99.8 F Temperature 99.7 F Temperature 99.7 F Temperature 99.9 F Temperature 99.8 F Temperature 99.1 F Temperature 99.1 F Temperature 99.1 F Temperature 99.1 F Temperature 99.5 F Temperature 98.5 F Temperature 98.7 F - Labs CBC & Chem 7: 03/09/18 10:27 03/08/18 13:27 Labs: Abnormal lab results 02/24/18 03/08/18 03/08/18 Range/Units 14:40 13:27 13:27 RBC 3.55 L (3.65-5.03) M/mm3 Hgb 6.5 L (10.1-14.3) gm/dl Hct 20.7 L (30.3-42.9) % MCV 58 L (79-97) fl MCH 18 L (28-32) pg RDW 27.7 H (13.2-15.2) % Creatinine 0.4 L (0.7-1.2) mg/dL POC Glucose (70-105) Calcium 8.1 L (8.4-10.2) mg/dL Crossmatch See Detail 03/08/18 03/09/18 Range/Units 19:00 06:16 RBC (3.65-5.03) M/mm3 Hgb (10.1-14.3) gm/dl Hct (30.3-42.9) % MCV (79-97) fl MCH (28-32) pg RDW (13.2-15.2) % Creatinine (0.7-1.2) mg/dL POC Glucose 108 H (70-105) Calcium (8.4-10.2) mg/dL Crossmatch See Detail
[2018-03-09 10:41] LABS: Hematocrit 26.2 % (30.3-42.9); Hemoglobin 8.1 gm/dl (10.1-14.3); Mean Corpuscular HGB Conc 31 % (30-34); Red Blood Count 4.29 M/mm3 (3.65-5.03)
[2018-03-09 10:43] LABS: Mean Corpuscular Volume 61 fl (79-97); Red Cell Distribution Width 32.9 % (13.2-15.2)
[2018-03-09 11:19] LABS: Platelet Count 350 K/mm3 (140-440)
--- NOTE | 2018-03-09 13:49 | Discharge Summary ---
Providers - Providers Date of Admission: 02/19/18 21:41 Date of discharge: 03/09/18 Attending physician: DANIE BHATT 02/20/18 15:22 Consult to Dietitian/Nutrition [CONS] Routine Physician Instructions: Reason For Exam: TPN Reason for Consult: Pt needs oral supplement 02/20/18 15:39 Consult to Physician [CONS] Routine Comment: Consulting Provider: SHIREEN ARCHER Physician Instructions: Reason For Exam: Malfunctioning peg tube 02/22/18 13:35 Consult to Physician [CONS] Routine Comment: Consulting Provider: ZAHIRA PIZARRO Physician Instructions: Reason For Exam: old PEG site infection 02/22/18 17:21 Consult to Physician [CONS] Routine Comment: Consulting Provider: ESDRAS SANCHEZ Physician Instructions: Reason For Exam: staph epidermis bacteremia 02/28/18 11:29 Consult to PICC Line RN [CONS] Routine Reason For Exam: fdc abx, remove old picc, send tip for ctx Type Line:: PICC 03/04/18 07:32 Consult to Wound/ET Nurse [CONS] Routine Reason For Exam: wound eval 03/05/18 11:36 Consult to Dietitian/Nutrition [CONS] Routine Physician Instructions: Assess nutrtn needs, initiate, modify, manage TF Reason For Exam: Reason for Consult: Write/Manage Tube Feeding Reason for Consult: Write/Manage Tube Feeding Primary care physician: [facility] Hospitalization Condition: Stable Pertinent studies: CXR Abdomen/pelvis CT Renal US 2d echo Hospital course: Brief History: Patient is 52 yo woman from [facility] (first visit here) with a history of hypertension, 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 In addition, there was evidence of UTI , CXR showed Hazy opacity left lung base concerning for atelactasis pneumonia. Her blood cx grew Stah epi, likely from her PICC line which was placed for TPN. She was also found to have a drainage along with the PEG tube. 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 Per family, patient had old PEG tube, which was removed as it was infected, leaving an abdominal wall opening, which did not heal well. She had a new PEG tube placed at a different site about 1-2 months ago at [facility]. She has been placed on TPN while allowing for the old PEG tube site to heal. GS was cons ulted and she required division of gastric cutaneous fistula on 02/27/18 for continuous gastric content leakage from the fistula . Her PICC line also replaced. started on TF and monitor for leakage. Patient was treated with vancomycin till 03/09/18. She was then discharge back to [facility] in stable condition. Discharge diagnosis and management: /Sepsis on Admission: - evidenced by leukocytosis, fever and tachycardia. - due to bacteremia with Staph Epidermis, 4 out of 4 bottles. Source most likely PICC line, U/A also consistent with UTI. - treated with vancomycin till 03/09/18 which is today, TTE negative /Coag negative Staph Bacteremia: - source most likely Indweling PICC line which was placed for TPN to help heal gastric fistula at OSH. - on vancomycim and blood cx negative since 02/23/18 - removed existing PICC and placed a new one in the left arm, which then removed before discharge. 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 Neurogenic bladder with chronic indwelling catheter. treated with abx / Traumtic Brain Subdural Hemorhage: - chronic vegetative state, no mobility, chronic aphasia. Supportive care Disposition: [facility] Radiological study: Imaging 02/19/18 Chest xray: Hazy opacity left lung base concerning for atelectasis vis pneumonia 02/21/18 - CT Abdomen/Pelvis: Metal artifact from right Hip arthroplast and IVC Filter. Current PEG tube with distal tip in anterior mid stomach. Previous PEG tube tract slightly more lateral with adjacent fat stranding. This may reflect edema, inflammation, or infection. No fluid collection to suggest abscess. Hospitalist Physical Gen: obese, nonverbal, chronically vegetative state, HEENT: NCAT, EOMI, PERRL, OP and mm dry Neck: supple, no adenopathy, no thyromegaly, no JVD CVS/Heart: Regular tachycardia normal S1S2, pulses present bilaterally Chest/Lungs: diminished bs bilateral Symmetrical chest expansion, good air entry bilaterally GI/Abdomen: PEG on place, +bowel sounds, no guarding or rebound /Bladder: mobley in place Extermity/Skin: leg atrophic, foot drop bilaterally MSK: no FROM x 4 Neuro: doesn't follow commands, aphasic Psych: unresponsive to verbal commend Disposition: DC/[place]-[facility] Time spent for discharge: 34 minutes Core Measure Documentation - Palliative Care Palliative Care/ Comfort Measures: Not Applicable - Core Measures Any of the following diagnoses?: history only Exam - Constitutional Vitals: Temp Pulse Resp BP Pulse Ox 99.4 F 100 H 18 123/53 100 03/09/18 06:16 03/09/18 11:00 03/09/18 06:16 03/09/18 06:16 03/09/18 10:39 Plan Activity: up only with assistance, other Weight Bearing Status: Non-Weight Bearing Diet: other (TF ) Wound: per wound nurse instructions Follow up with: PRIMARY CARE, [Primary Care Provider] - 3-5 Days Prescriptions: levoFLOXacin [Levaquin] 750 mg PO QDAY #3 tablet Pantoprazole [Protonix] 40 mg PO QDAY #30 tablet
--- NOTE | 2018-03-09 14:15 | Gastroenterology Progress Note ---
Assessment and Plan 1.drop in H/H -H/H 8.1/26.2-trending up s/p blood transfusion -continue to monitor H/H and transfuse as needed -stool occult negative -no active signs of bleeding -etiology unclear-likely multifactorial -no plans for scope at this time unless overt bleeding develops given no clinical evidence of significant GI bleeding -start on daily PPI -continue supportive care -no further GI recommendations at this time -will sign off, please call back if needed Subjective Date of service: 03/09/18 Principal diagnosis: drop in H/H Interval history: GI has been re-consulted on this patient for an evaluation of drop in H/H. No acute distress. No active signs of bleeding per nursing. Objective - Constitutional Vitals: Temp Pulse Resp BP Pulse Ox 99.4 F 100 H 18 123/53 100 03/09/18 06:16 03/09/18 11:00 03/09/18 06:16 03/09/18 06:16 03/09/18 10:39 General appearance: no acute distress, other (nonverbal, vegetative state) - Respiratory Respiratory: bilateral: diminished - Cardiovascular Rhythm: other (tachycardia) - Gastrointestinal General gastrointestinal: Present: soft, non-distended, normal bowel sounds, other (+PEG) - Labs CBC & Chem 7: 03/09/18 10:27 03/08/18 13:27 Labs: Laboratory Results - last 24 hr 02/24/18 03/08/18 03/08/18 14:40 13:27 13:27 WBC 9.5 RBC 3.55 L Hgb 6.5 L Hct 20.7 L MCV 58 L MCH 18 L MCHC 32 RDW 27.7 H Plt Count 279 Sodium 142 Potassium 3.8 Chloride 106.6 Carbon Dioxide 25 Anion Gap 14 BUN 9 Creatinine 0.4 L Estimated GFR > 60 BUN/Creatinine Ratio 23 Glucose 84 POC Glucose Calcium 8.1 L Blood Type Antibody Screen Crossmatch See Detail 03/08/18 03/08/18 03/09/18 16:43 19:00 00:43 WBC RBC Hgb Hct MCV MCH MCHC RDW Plt Count Sodium Potassium Chloride Carbon Dioxide Anion Gap BUN Creatinine Estimated GFR BUN/Creatinine Ratio Glucose POC Glucose 98 105 Calcium Blood Type B POSITIVE Antibody Screen Negative Crossmatch See Detail 03/09/18 03/09/18 03/09/18 06:16 10:27 12:28 WBC 12.3 H RBC 4.29 Hgb 8.1 L Hct 26.2 L MCV 61 L MCH 19 L MCHC 31 RDW 32.9 H Plt Count 350 Sodium Potassium Chloride Carbon Dioxide Anion Gap BUN Creatinine Estimated GFR BUN/Creatinine Ratio Glucose POC Glucose 108 H 119 H Calcium Blood Type Antibody Screen Crossmatch
[2018-03-09 14:24] VITALS: BP 99/54
== END 2018-03-09 18:30 | DRG 871 ==
LOC: ED 17:15 → 4A 21:41 → 3A 02-24 14:00
PROVIDERS: ADMIT Internal Medicine; ATTEND Internal Medicine
PROC: 0D9670Z Drainage of Stomach with Drainage Device, Via Natural or Artificial Opening (ICD-10-PCS; principal; 2018-02-22)
PROC: 3E0436Z Introduction of Nutritional Substance into Central Vein, Percutaneous Approach (ICD-10-PCS; 2018-02-22)
PROC: 30233N1 Transfusion of Nonautologous Red Blood Cells into Peripheral Vein, Percutaneous Approach (ICD-10-PCS; 2018-02-24)
PROC: 0DB64ZZ Excision of Stomach, Percutaneous Endoscopic Approach (ICD-10-PCS; 2018-02-28)
PROC: 02HV33Z Insertion of Infusion Device into Superior Vena Cava, Percutaneous Approach (ICD-10-PCS; 2018-03-01)
PROC: 02PYX3Z Removal of Infusion Device from Great Vessel, External Approach (ICD-10-PCS; 2018-03-01)
DX: A41.9 Sepsis, unspecified organism (principal); J69.0 Pneumonitis due to inhalation of food and vomit; G93.41 Metabolic encephalopathy; E87.0 Hyperosmolality and hypernatremia; K94.23 Gastrostomy malfunction; N30.00 Acute cystitis without hematuria; K31.6 Fistula of stomach and duodenum; I10 Essential (primary) hypertension; E86.0 Dehydration; Y83.3 Surgical operation with formation of external stoma as the cause of abnormal reaction of the patient, or of later complication, without mention of misadventure at the time of the procedure; I48.2 Chronic atrial fibrillation; E87.6 Hypokalemia; E87.5 Hyperkalemia; Y92.098 Other place in other non-institutional residence as the place of occurrence of the external cause; Z86.73 Personal history of transient ischemic attack (TIA), and cerebral infarction without residual deficits
CPT/HCPCS: 36415; 71045; 74177; 76770; 80048; 80053; 80202; 81001; 82140; 82270; 82962; 83735; 84100; 84478; 85007; 85014; 85018; 85025; 85027; 86850; 86900; 86901; 86920; 87040; 87076; 87086; 87186; 88304; 93005; 93010; 93306; 94640; 94760; 96365; 96368; 96372; 96375; G0378; C9113; J0456; J0610; J0692; J1644; J1650; J1815; J2370; J2405; J2704; J2710; J3010; J3370; J3480; J7030; J7040; J7050; J7070; P9016; Q9967